=== PATIENT | female | born 1945 | race African-American/Black ===

== ENCOUNTER 2021-05-14 12:23 | Outpatient (RCR) | payer MEDICARE, SELFPAY | END 2021-05-18 14:46 | disposition home or self-care (01) | LOC: HO.WCC 12:23 | PROVIDERS: PCP Internal Medicine; Visit Provider Physician Assistant | DX: E11.621 Type 2 diabetes mellitus with foot ulcer (principal); E11.51 Type 2 diabetes mellitus with diabetic peripheral angiopathy without gangrene; I70.235 Atherosclerosis of native arteries of right leg with ulceration of other part of foot; L97.516 Non-pressure chronic ulcer of other part of right foot with bone involvement without evidence of necrosis; E11.22 Type 2 diabetes mellitus with diabetic chronic kidney disease; N18.30 Chronic kidney disease, stage 3 unspecified; Z79.4 Long term (current) use of insulin; Z86.73 Personal history of transient ischemic attack (TIA), and cerebral infarction without residual deficits | CPT/HCPCS: 99213 ==

== ENCOUNTER 2021-05-14 13:30 | Inpatient (IN) | payer MEDICARE, MEDICAID, SELFPAY ==
--- NOTE | ~2021-05-14 | XR_ITS ---
EXAMINATION: XR FOOT, RIGHT CLINICAL INFORMATION: Timoteo hepatitis wound right great toe. Question bony erosion. COMPARISON: None TECHNIQUE: AP, lateral, and oblique views of the right foot. FINDINGS: There is subtle lucency seen along the lateral cortex proximal phalanx great toe with erosion of the cortex suggestive of osteoarthritis. There is associated soft tissue swelling but no gas visualized. There is no fracture or dislocation. XR/XR foot RT 2V IMPRESSION: Erosive changes along the lateral cortex proximal phalanx distal segment first digit suspicious for osteomyelitis. There is associated soft tissue ulcer. There is no acute fracture.
--- NOTE | ~2021-05-14 | US_ITS ---
EXAMINATION: ULTRASOUND ARTERIAL DUPLEX LOWER EXTREMITY BILATERAL, BERNARDO CLINICAL INFORMATION: Nonhealing ulcer. COMPARISON: None TECHNIQUE: Multiple 2D grayscale and duplex Doppler ultrasound images of the arterial system of the bilateral lower extremities were obtained. Ankle brachial indices were also obtained. FINDINGS: Duplex Doppler interrogation of the bilateral lower extremities showed normal tri and biphasic arterial waveforms. Arterial peak systolic velocities are as follows: Left: Common femoral: 79 cm/sec Profunda femoral: 96 cm/sec Superficial femoral proximal: 26 cm/sec Superficial femoral mid: No detectable arterial waveforms. Superficial femoral distal: No detectable arterial waveforms. Popliteal: No detectable arterial waveforms. Posterior tibial (prox/mid/distal): No detectable arterial waveforms. Right: Common femoral: 55 cm/sec Profunda femoral: 31 cm/sec Superficial femoral proximal: 140 cm/sec Superficial femoral mid: 45 cm/sec. Superficial femoral distal: 40 cm/sec Popliteal: 70 cm/sec. Posterior tibial (prox/mid/distal): Not visualized. Scattered mild to moderate atherosclerosis is seen bilaterally. The right ankle brachial index is not dilated 0.14 and the left was calculated as 0.35. US/US arterial duplex LE BI IMPRESSION: 1. No detectable blood or waveforms from the level of the right mid superficial arterial segment distally to the right calf suggesting high-grade stenosis in these arterial segments. Collaterals were visualized. Correlation with physical exam is recommended. This could be confirmed with CT angiography. 2. Diminished arterial velocities in the left lower extremity except in the proximal superficial femoral segment. No detectable blood or waveforms are seen in the region of the left posterior tibial artery. High-grade stenosis in the cervical segment cannot be excluded. This can also be confirmed with CT angiography. 2. Ankle-brachial indices are in the range of severe stenosis, right greater than left.
--- NOTE | ~2021-05-14 | US_ITS ---
EXAMINATION: ULTRASOUND ARTERIAL DUPLEX LOWER EXTREMITY BILATERAL, BERNARDO CLINICAL INFORMATION: Nonhealing ulcer. COMPARISON: None TECHNIQUE: Multiple 2D grayscale and duplex Doppler ultrasound images of the arterial system of the bilateral lower extremities were obtained. Ankle brachial indices were also obtained. FINDINGS: Duplex Doppler interrogation of the bilateral lower extremities showed normal tri and biphasic arterial waveforms. Arterial peak systolic velocities are as follows: Left: Common femoral: 79 cm/sec Profunda femoral: 96 cm/sec Superficial femoral proximal: 26 cm/sec Superficial femoral mid: No detectable arterial waveforms. Superficial femoral distal: No detectable arterial waveforms. Popliteal: No detectable arterial waveforms. Posterior tibial (prox/mid/distal): No detectable arterial waveforms. Right: Common femoral: 55 cm/sec Profunda femoral: 31 cm/sec Superficial femoral proximal: 140 cm/sec Superficial femoral mid: 45 cm/sec. Superficial femoral distal: 40 cm/sec Popliteal: 70 cm/sec. Posterior tibial (prox/mid/distal): Not visualized. Scattered mild to moderate atherosclerosis is seen bilaterally. The right ankle brachial index is not dilated 0.14 and the left was calculated as 0.35. US/US BERNARDO complete IMPRESSION: 1. No detectable blood or waveforms from the level of the right mid superficial arterial segment distally to the right calf suggesting high-grade stenosis in these arterial segments. Collaterals were visualized. Correlation with physical exam is recommended. This could be confirmed with CT angiography. 2. Diminished arterial velocities in the left lower extremity except in the proximal superficial femoral segment. No detectable blood or waveforms are seen in the region of the left posterior tibial artery. High-grade stenosis in the cervical segment cannot be excluded. This can also be confirmed with CT angiography. 2. Ankle-brachial indices are in the range of severe stenosis, right greater than left.
[2021-05-14 13:45] VITALS: BP 141/65; PULSE 62; O2SAT 100
[2021-05-14 13:47] VITALS: BP 136/60; PULSE 65; RESP 17; TEMP 36.6; O2SAT 100; BMI 27.4
--- NOTE | 2021-05-14 13:47 | ED_ITS ---
HPI - Extremity Problem General Chief complaint: Wound/Laceration Stated complaint: necrotic great toe Time Seen by Provider: 05/14/21 13:44 Source: patient and EMS Mode of arrival: EMS Limitations: no limitations History of Present Illness HPI Narrative: Patient history of dementia peripheral vascular disease diabetes came from the wound clinic as patient has nonhealing wound on the right greater toe with dry gangrene and open wound in the web of 1st and 2nd toe with foul- smelling discharge details are not available patient been on Augmentin and doxycycline since 04/22 patient is nonambulatory in contracted posture, patient is status post femoral artery stent patient is DNR DNI Related Data Home Medications Medication Instructions Recorded Confirmed acetaminophen 325 mg tablet 650 mg PO Q6H PRN 05/14/21 05/14/21 aspirin 81 mg tablet,delayed 81 mg PO DAILY 05/14/21 05/14/21 release bisacodyl 10 mg rectal suppository 10 mg DC DAILY PRN 05/14/21 05/14/21 bisacodyl 5 mg tablet 10 mg PO DAILY PRN 05/14/21 05/14/21 calcium carbonate 500 mg calcium 1,000 mg PO QID PRN 05/14/21 05/14/21 (1,250 mg) chewable tablet dorzolamide 22.3 mg-timolol 6.8 1 drp OPHTHALMIC (EYE) BID 05/14/21 05/14/21 mg/mL eye drops insulin detemir U-100 100 unit/mL 14 unit SUBCUT DAILY 05/14/21 05/14/21 (3 mL) subcutaneous pen (Levemir FlexTouch U-100 Insulin) latanoprost 0.005 % eye drops 1 drp OPHTHALMIC (EYE) DAILY 05/14/21 05/14/21 magnesium hydroxide 400 mg/5 mL 30 ml PO BEDTIME PRN 05/14/21 05/14/21 oral suspension (Milk of Magnesia) metoprolol tartrate 50 mg tablet 50 mg PO BID 05/14/21 05/14/21 mirtazapine 15 mg tablet 15 mg PO BEDTIME 05/14/21 05/14/21 omeprazole 20 mg capsule,delayed 20 mg PO DAILY@0630 05/14/21 05/14/21 release ondansetron 4 mg disintegrating 4 mg PO Q6H PRN 05/14/21 05/14/21 tablet peg 400-propylene glycol 0.4 %-0.3 1 drp OPHTHALMIC (EYE) BID 05/14/21 05/14/21 % eye drops (Systane Ultra) sennosides 8.6 mg tablet (senna) 8.6 mg PO DAILY 05/14/21 05/14/21 sennosides 8.6 mg tablet (senna) 17.2 mg PO BEDTIME PRN 05/14/21 05/14/21 tamsulosin 0.4 mg capsule 0.4 mg PO BEDTIME 05/14/21 05/14/21 Allergies Allergy/AdvReac Type Severity Reaction Status Date / Time oxycodone [From PERCOCET] Allergy Mild HALLUCINATI Unverified 04/30/20 15:09 ONS Review of Systems Review of Systems: Yes all other systems are reviewed and are negative [facility] Past Medical History Medical History CVA (cerebral vascular accident) Diabetes Femoral artery occlusion Glaucoma HLD (hyperlipidemia) HTN (hypertension) Superficial femoral artery occlusion Vascular dementia Family History Family History Mother CVA (cerebral vascular accident) Social History Social History Alcohol intake: never Patient Tobacco Use Status: Never used Tobacco Advance Directives: No Advance Directives Information Provided: No Physical Exam Vital Signs: Vital Signs: Last Vital Signs Temp 98 F 05/14/21 13:47 Pulse 65 05/14/21 13:47 Resp 17 05/14/21 13:47 BP 136/60 05/14/21 13:47 Pulse Ox 100 05/14/21 13:47 Body Mass Index 27.4 Const: General: cooperative, no acute distress and ill appearing Nutritional Appearance: thin and underweight Orientation/consciousness: orie nted to person and oriented to place HENMT: Head: Yes normal to inspection and Yes normocephalic Ears: hearing grossly normal bilaterally Eyes: General: appearance normal, both eyes and all related structures Resp: Effort & Inspection: normal respiratory effort Auscultation: clear to auscultation bilaterally Cardio: Palpation: normal PMI Rate: regular rate Rhythm: regular rhythm Heart sounds: S1 normal heart sound present and S2 normal heart sound present Peripheral pulses: popliteal pulses present, posterior tibial pulses not present (Right leg) and dorsalis pedis pulses not present (Right leg) GI: Inspection: Yes normal to inspection Palpation (GI): Soft to palpation and nontender Neuro: Other: Residual left hemiparesis with contractures posture General: oriented to person and oriented to place Extrem: Other: MDM - Extremity (Nontraumatic) MDM Narrative Medical decision making narrative: Patient diabetic with peripheral vascular disease with chronic right leg ischemia with nonhealing wound in the right greater toe with dry gangrene and open wound with bony erosion in the x-ray suggestive of osteomyelitis will admit for IV antibiotic plan for metatarsal amputation. Hospitalist aware discussed the case with Dr. Verduzco Lab Data Result diagrams: 05/14/21 14:43 05/14/21 14:43 Labs: Lab Results 05/14/21 05/14/21 05/14/21 Range/Units 14:43 14:43 14:43 WBC 9.2 (4.8-10.8) X10*3/uL RBC 3.16 L (4.20-5.50) X10*6/uL Hgb 8.6 L (12.0-16.0) g/dl Hct 28.6 L (37-47) % MCV 90.5 (80-98) fL MCH 27.2 (27.0-33.0) pg MCHC 30.1 L (31.0-35.0) g/dl RDW 13.1 (11.0-16.0) % Plt Count 276 (160-400) X10*3/uL MPV 8.8 L (9.4-12.3) fL Immature Gran % (Auto) 0.4 (0.0-0.4) % Neut % (Auto) 64.7 (45-73) % Lymph % (Auto) 26.3 (20-40) % [place] % (Auto) 6.9 (2-11) % Eos % (Auto) 1.2 (0-4) % Baso % (Auto) 0.5 (0-2) % Lymph # (Auto) 2.4 (1.2-4.9) X10*3/uL [place] # (Auto) 0.6 (0.1-1.2) X10*3/uL Eos # (Auto) 0.1 (0.0-0.4) X10*3/uL Baso # (Auto) 0.1 (0.0-0.2) X10*3/uL Abs Immat Gran (auto) 0.04 H (0.00-0.03) X10*3/uL Absolute Neuts (auto) 5.9 (2.0-8.3) X10*3/uL Absolute Nucleated RBC 0.000 (0.0-0.012) X10*3/uL Nucleated RBC % (auto) 0.0 (0.0-0.2) /100WBC PT (9.9-13.0) SEC INR (0.9-1.1) APTT (24.1-38.0) SEC Sodium 139 (135-145) mmol/L Potassium 4.2 (3.3-5.1) mmol/L Chloride 104 (96-108) mmol/L Carbon Dioxide 28 (22-29) mmol/L Anion Gap 11 L (12-20) BUN 31 H (9-16) mg/dL Creatinine 0.79 (0.5-1.4) mg/dL Estim Creat Clear Calc 60.4 Estimated GFR > 60 Random Glucose 115 (60-115) mg/dL Lactic Acid 0.9 (0.5-2.0) mmol/L Calcium 9.2 (8.4-10.2) mg/dL COVID-19 ([facility]) (Negative) COVID-19 Clin Com 05/14/21 05/14/21 Range/Units 14:43 15:33 WBC (4.8-10.8) X10*3/uL RBC (4.20-5.50) X10*6/uL Hgb (12.0-16.0) g/dl Hct (37-47) % MCV (80-98) fL MCH (27.0-33.0) pg MCHC (31.0-35.0) g/dl RDW (11.0-16.0) % Plt Count (160-400) X10*3/uL MPV (9.4-12.3) fL Immature Gran % (Auto) (0.0-0.4) % Neut % (Auto) (45-73) % Lymph % (Auto) (20-40) % [place] % (Auto) (2-11) % Eos % (Auto) (0-4) % Baso % (Auto) (0-2) % Lymph # (Auto) (1.2-4.9) X10*3/uL [place] # (Auto) (0.1-1.2) X10*3/uL Eos # (Auto) (0.0-0.4) X10*3/uL Baso # (Auto) (0.0-0.2) X10*3/uL Abs Immat Gran (auto) (0.00-0.03) X10*3/uL Absolute Neuts (auto) (2.0-8.3) X10*3/uL Absolute Nucleated RBC (0.0-0.012) X10*3/uL Nucleated RBC % (auto) (0.0-0.2) /100WBC PT 13.8 H (9.9-13.0) SEC INR 1.2 H (0.9-1.1) APTT 34.0 (24.1-38.0) SEC Sodium (135-145) mmol/L Potassium (3.3-5.1) mmol/L Chloride (96-108) mmol/L Carbon Dioxide (22-29) mmol/L Anion Gap (12-20) BUN (9-16) mg/dL Creatinine (0.5-1.4) mg/dL Estim Creat Clear Calc Estimated GFR Random Glucose (60-115) mg/dL Lactic Acid (0.5-2.0) mmol/L Calcium (8.4-10.2) mg/dL COVID-19 ([facility]) Negative (Negative) COVID-19 Clin Com See Note Discharge Plan Discharge Clinical Impression: Acute osteomyelitis of phalanx of right foot Patient Disposition: Admitted As Inpatient
[2021-05-14 14:50] LABS: MANUAL DIFF FLAG NO
[2021-05-14 14:55] LABS: Basophils Absolute Auto 0.1 X10*3/uL (0.0-0.2); Basophils Percent Auto 0.5 % (0-2); Eosinophils Absolute Auto 0.1 X10*3/uL (0.0-0.4); Eosinophils Percent Auto 1.2 % (0-4); Hematocrit 28.6 % (37-47); Hemoglobin 8.6 g/dl (12.0-16.0); Imm Gran Abs Auto 0.04 X10*3/uL (0.00-0.03); Imm Gran Pct Auto 0.4 % (0.0-0.4); Lymphocytes Absolute Auto 2.4 X10*3/uL (1.2-4.9); Lymphocytes Percent Auto 26.3 % (20-40); Mean Corpuscular HGB Conc 30.1 g/dl (31.0-35.0); Mean Corpuscular Hemoglobin 27.2 pg (27.0-33.0); Mean Corpuscular Volume 90.5 fL (80-98); Mean Platelet Volume 8.8 fL (9.4-12.3); Monocytes Absolute Auto 0.6 X10*3/uL (0.1-1.2); Monocytes Percent Auto 6.9 % (2-11); Neutrophils Absolute Auto 5.9 X10*3/uL (2.0-8.3); Neutrophils Percent Auto 64.7 % (45-73); Platelet Count 276 X10*3/uL (160-400); Red Blood Count 3.16 X10*6/uL (4.20-5.50); Red Cell Distribution Width 13.1 % (11.0-16.0); White Blood Count 9.2 X10*3/uL (4.8-10.8)
[2021-05-14 14:59] LABS: INTERNATIONAL NORM RATIO 1.2 (0.9-1.1); Prothrombin Time 13.8 SEC (9.9-13.0)
[2021-05-14] MEDS: Piperacillin Sodium/Tazobactam 3.375 GM in 0.9 % Sodium Chloride 50 ML IV ×2 (15:02→20:28)
[2021-05-14 15:03] LABS: Lactic Acid 0.9 mmol/L (0.5-2.0)
[2021-05-14 15:14] LABS: Anion Gap 11 (12-20); Blood Urea Nitrogen 31 mg/dL (9-16); Calcium 9.2 mg/dL (8.4-10.2); Carbon Dioxide 28 mmol/L (22-29); Chloride 104 mmol/L (96-108); Creatinine Clr Calc Pharmacy 60.4; Estimated Glomerular Filt Rate > 60; Glucose Random 115 mg/dL (60-115); Potassium 4.2 mmol/L (3.3-5.1); Sodium 139 mmol/L (135-145)
[2021-05-14] MEDS: vancomycin HCL 750 MG in 0.9 % Sodium Chloride 250 ML 265 MG IV (15:46)
[2021-05-14 15:54] LABS: COVID-19 Test Negative (Negative)
--- NOTE | 2021-05-14 16:07 | P.HPHOSP_ITS ---
History of Present Illness Date of Service: 05/14/21 Chief Complaint: infected right 1st toe 75F sent from intermediate to wound clinic and then to ED for right first toe infection. Patient has her healthcare proxy invoked due to vascular dementia. She has a history of significant CVA with left severe hemiparesis and multiple other TIAs, peripheral vascular disease with stent placement, diabetes, hypertension. Healthcare proxy was unclear duration of symptoms, but appears to be having on on for some time and was prescribed Augmentin doxycycline at intermediate which does not appear to have improved. Wound clinic found toe to be necrotic and sent patient to the ED. patient herself connective proper his tory denies any pain, shortness of breath, fever, chills. Patient has no signs of sepsis. X-rays suspicious for early osteomyelitis. Review of Systems Review of Systems: Yes Unobtainable due to mental condition [facility] Medical History (Updated 05/14/21 @ 16:13 by Alex Campbell MD) CVA (cerebral vascular accident) Diabetes Femoral artery occlusion Glaucoma HLD (hyperlipidemia) HTN (hypertension) Superficial femoral artery occlusion Vascular dementia Family History (Updated 05/14/21 @ 16:00 by Alex Campbell MD) Mother CVA (cerebral vascular accident) Pertinent family history: see above Social History Alcohol intake: never Patient Tobacco Use Status: Never used Tobacco Advance Directives: No Advance Directives Information Provided: No Meds Allergies Allergy/AdvReac Type Severity Reaction Status Date / Time oxycodone [From PERCOCET] Allergy Mild HALLUCINATI Unverified 04/30/20 15:09 ONS Active Medications: Current Medications Heparin Sodium/Sodium Chloride () 25,000 unit in 250 mls @ 0 mls/hr IVCONT .Q0M DILLON; Protocol Pharmacy Consult (Consult Rx Perform Med Rec) 1 each MISCELLANE ONCE PRN PRN Reason: Consult order Home Medications Medication Instructions Recorded Confirmed Last Taken Type acetaminophen 325 mg tablet 650 mg PO Q6H PRN 05/14/21 05/14/21 Unknown History aspirin 81 mg tablet,delayed 81 mg PO DAILY 05/14/21 05/14/21 Unknown History release bisacodyl 10 mg rectal suppository 10 mg NE DAILY PRN 05/14/21 05/14/21 Unknown History bisacodyl 5 mg tablet 10 mg PO DAILY PRN 05/14/21 05/14/21 Unknown History calcium carbonate 500 mg calcium 1,000 mg PO QID PRN 05/14/21 05/14/21 Unknown History (1,250 mg) chewable tablet dorzolamide 22.3 mg-timolol 6.8 1 drp OPHTHALMIC (EYE) BID 05/14/21 05/14/21 Unknown History mg/mL eye drops insulin detemir U-100 100 unit/mL 14 unit SUBCUT DAILY 05/14/21 05/14/21 Unknown History (3 mL) subcutaneous pen (Levemir FlexTouch U-100 Insulin) latanoprost 0.005 % eye drops 1 drp OPHTHALMIC (EYE) DAILY 05/14/21 05/14/21 Unknown History magnesium hydroxide 400 mg/5 mL 30 ml PO BEDTIME PRN 05/14/21 05/14/21 Unknown History oral suspension (Milk of Magnesia) metoprolol tartrate 50 mg tablet 50 mg PO BID 05/14/21 05/14/21 Unknown History mirtazapine 15 mg tablet 15 mg PO BEDTIME 05/14/21 05/14/21 Unknown History omeprazole 20 mg capsule,delayed 20 mg PO DAILY@0630 05/14/21 05/14/21 Unknown History release ondansetron 4 mg disintegrating 4 mg PO Q6H PRN 05/14/21 05/14/21 Unknown Hist ory tablet peg 400-propylene glycol 0.4 %-0.3 1 drp OPHTHALMIC (EYE) BID 05/14/21 05/14/21 Unknown History % eye drops (Systane Ultra) sennosides 8.6 mg tablet (senna) 8.6 mg PO DAILY 05/14/21 05/14/21 Unknown History sennosides 8.6 mg tablet (senna) 17.2 mg PO BEDTIME PRN 05/14/21 05/14/21 Unknown History tamsulosin 0.4 mg capsule 0.4 mg PO BEDTIME 05/14/21 05/14/21 Unknown History Physical Exam Vital Signs and Narrative: Vital Signs: Last Vital Signs Temp 98 F 05/14/21 13:47 Pulse 65 05/14/21 13:47 Resp 17 05/14/21 13:47 BP 136/60 05/14/21 13:47 Pulse Ox 100 10/01/21 13:47 Body Mass Index 27.4 General: no acute distress, frail HEENT: atraumatic Neck: normal to visual inspection CVS: S1, S2, RRR Resp: CTA bilateral Chest: non tender GI: soft, non tender, non distended : no CVA tenderness Skin: right first toe necrotic (see pics) Extremities: no edema Neuro: Oriented X1, left hemiparesis, contracted Psych: cooperative, impaired insight Results Labs CBC and Chem 7: 05/14/21 14:43 05/14/21 14:43 Labs: Laboratory Results - last 24 hr 05/14/21 05/14/21 05/14/21 14:43 14:43 14:43 MCV 90.5 MCH 27.2 MCHC 30.1 L RDW 13.1 Plt Count 276 MPV 8.8 L Immature Gran % (Auto) 0.4 Neut % (Auto) 64.7 Lymph % (Auto) 26.3 [place] % (Auto) 6.9 Eos % (Auto) 1.2 Baso % (Auto) 0.5 Lymph # (Auto) 2.4 [place] # (Auto) 0.6 Eos # (Auto) 0.1 Baso # (Auto) 0.1 Abs Immat Gran (auto) 0.04 H Absolute Neuts (auto) 5.9 Absolute Nucleated RBC 0.000 Nucleated RBC % (auto) 0.0 PT INR APTT Anion Gap 11 L Estim Creat Clear Calc 60.4 Estimated GFR > 60 Random Glucose 115 Lactic Acid 0.9 Calcium 9.2 COVID-19 ([facility]) COVID-19 Clin Com 05/14/21 05/14/21 14:43 15:33 MCV MCH MCHC RDW Plt Count MPV Immature Gran % (Auto) Neut % (Auto) Lymph % (Auto) [place] % (Auto) Eos % (Auto) Baso % (Auto) Lymph # (Auto) [place] # (Auto) Eos # (Auto) Baso # (Auto) Abs Immat Gran (auto) Absolute Neuts (auto) Absolute Nucleated RBC Nucleated RBC % (auto) PT 13.8 H INR 1.2 H APTT 34.0 Anion Gap Estim Creat Clear Calc Estimated GFR Random Glucose Lactic Acid Calcium COVID-19 ([facility]) Negative COVID-19 Clin Com See Note Imaging Radiologist's Impressions: Impressions Foot X-Ray 05/14/21 13:47 IMPRESSION: Erosive changes along the lateral cortex proximal phalanx distal segment first digit suspicious for osteomyelitis. There is associated soft tissue ulcer. There is no acute fracture. Assessment and Plan (1) Vascular dementia: Status: Acute (2) Acute osteomyelitis of phalanx of right foot: Status: Acute (3) Diabetes: Status: Acute 75F presented with necrotic looking right 1st toe right first toe necrosis with OM due to PVD, DM discussed with vascular high risk to progress to sepsis will cover with IV antibiotics - vanc, zosyn follow up blood cultures check arterial vascular studies local care - wound paint/betadine kerlex daily likely to need amputation discussed with HCP, son, he is okay with hospitalization and potential surgery, would like patient to remain DNR/DNI DM insulin sliding scale, monitor POC history of CVA with severe left hemiparesis and vascular dementia asa, statin dvt prohpylaxis - lovenox DNR/DNI Quality Stroke Does the patient have a stroke diagnosis?: No VTE Prior VTE?: No VTE Risk Level:: Medical - moderate - high VTE Device Contraindication: Treatment Not Indicated VTE Drug Contraindication: N/A - Med Ordered
--- NOTE | 2021-05-14 16:24 | PHA.MEDREC ---
Pharmacy Consult ? Medication Reconciliation Pharmacy has completed the medication reconciliation. pt from facility
[2021-05-14 17:56] VITALS: BP 98/66; PULSE 74; RESP 18; TEMP 36.6; O2SAT 97
[2021-05-14] MEDS: Enoxaparin Sodium 40 MG/0.4 ML SYRINGE SUBCUT (18:04)
[2021-05-14 20:00] VITALS: BP 131/90; PULSE 78; RESP 16; TEMP 36.6; O2SAT 98
[2021-05-14] MEDS: Tamsulosin HCL 0.4 MG CAPSULE PO (20:27)
[2021-05-14] MEDS: Atorvastatin Calcium 40 MG TABLET PO (20:27)
[2021-05-14] MEDS: 0.9 % Sodium Chloride Flush 3 ML SYRINGE IVFLUSH (20:27)
[2021-05-14] MEDS: Metoprolol Tartrate 50 MG TABLET PO (20:27)
[2021-05-14 20:28] LABS: Glucose, Whole Blood 92 mg/dL (60-115)
[2021-05-14] MEDS: Dorzolamide/Timolo 2.23%/0.68% 10 ML DRBTL 1 DROP EYE-BOTH (21:10)
[2021-05-14] MEDS: Artificial Tears 15 ML DROPS 1 DROP EYE-BOTH (21:10)
[2021-05-15] VITALS: BP 112/68; PULSE 61; RESP 16; TEMP 36.1; O2SAT 99
[2021-05-15] MEDS: Piperacillin Sodium/Tazobactam 3.375 GM in 0.9 % Sodium Chloride 50 ML IV ×4 (03:01→21:04)
[2021-05-15] MEDS: Omeprazole 20 MG CAPSULE.DR PO (05:58)
[2021-05-15 06:07] LABS: Hematocrit 26.7 % (37-47); Hemoglobin 8.2 g/dl (12.0-16.0); Mean Corpuscular HGB Conc 30.7 g/dl (31.0-35.0); Mean Corpuscular Hemoglobin 27.7 pg (27.0-33.0); Mean Corpuscular Volume 90.2 fL (80-98); Mean Platelet Volume 9.1 fL (9.4-12.3); Platelet Count 291 X10*3/uL (160-400); Red Blood Count 2.96 X10*6/uL (4.20-5.50); Red Cell Distribution Width 13.2 % (11.0-16.0); White Blood Count 8.1 X10*3/uL (4.8-10.8)
[2021-05-15 06:43] LABS: Anion Gap 15 (12-20); Blood Urea Nitrogen 38 mg/dL (9-16); Calcium 8.7 mg/dL (8.4-10.2); Carbon Dioxide 24 mmol/L (22-29); Chloride 104 mmol/L (96-108); Creatinine Clr Calc Pharmacy 49.6; Estimated Glomerular Filt Rate 56; Glucose Fasting 46 mg/dL (60-99); Potassium 3.7 mmol/L (3.3-5.1); Sodium 139 mmol/L (135-145)
[2021-05-15 06:54] LABS: Glucose, Whole Blood 50 mg/dL (60-115)
[2021-05-15 07:36] VITALS: BP 126/62; PULSE 62; RESP 16; TEMP 36.4
[2021-05-15 07:51] LABS: Glucose, Whole Blood 80 mg/dL (60-115)
[2021-05-15 08:02] VITALS: BP 126/62; PULSE 62
[2021-05-15] MEDS: Aspirin Enteric Coated 81 MG TABLET.DR PO (08:02)
[2021-05-15] MEDS: Sennosides 8.6 MG TABLET PO (08:02)
[2021-05-15] MEDS: Metoprolol Tartrate 50 MG TABLET PO ×2 (08:02→21:05)
[2021-05-15] MEDS: 0.9 % Sodium Chloride Flush 3 ML SYRINGE IVFLUSH ×2 (08:03→15:51)
[2021-05-15] MEDS: Dextrose 5 % and 0.45 % NaCl 1,000 ML 50 ML IVCONT (08:03)
[2021-05-15] MEDS: Artificial Tears 15 ML DROPS 1 DROP EYE-BOTH ×2 (08:17→21:13)
[2021-05-15] MEDS: Latanoprost 0.005 % Ophth Sol 2.5 ML DROPS 1 DROP EYE-BOTH (08:17)
[2021-05-15] MEDS: Dorzolamide/Timolo 2.23%/0.68% 10 ML DRBTL 1 DROP EYE-BOTH ×2 (08:18→21:14)
--- NOTE | 2021-05-15 08:21 | HO.PM.IMPN ---
Subjective Subjective Date of Service: 05/15/21 Interval History: cc: sent in for necrotic toe wound patient denies pain Cardiovascular Cardiovascular: Reports no additional cardiovascular complaints Respiratory Respiratory: Reports no additional respiratory complaints Physical Exam Vital Signs: Vital Signs: Last Vital Signs Temp 97.5 F 05/15/21 07:36 Pulse 62 05/15/21 08:02 Resp 16 05/15/21 07:36 BP 126/62 05/15/21 08:02 Pulse Ox 99 05/15/21 00:00 Body Mass Index 27.4 General: AO X 1, no acute distress, frail appearing, contracted Resp: CTA bilateral, no accessory muscles used CVS: S1,S2,RRR GI: soft, non tender, non distended Neuro: left hemiplegia (son reports some movement occasionally on left, but cannot appreciate any on exam), contracted skin: rle - first toe necrotic wound Objective Data Active Medications Acetaminophen (Acetaminophen 325 Mg Tablet) 650 mg PO Q6H PRN PRN Reason: fever/pain Artificial Tears (Artificial Tears 15 Ml Drops) 1 drop EYE-BOTH BID [facility] Last Admin: 05/14/21 21:10 Dose: 1 drop Documented by: VI Aspirin (Aspirin Enteric Coated 81 Mg Tablet.) 81 mg PO DAILY [facility] Last Admin: 05/15/21 08:02 Dose: 81 mg Documented by: JUNE Atorvastatin Calcium (Atorvastatin Calcium 40 Mg Tablet) 40 mg PO BEDTIME [facility] Last Admin: 05/14/21 20:27 Dose: 40 mg Documented by: VI Bisacodyl (Bisacodyl 5 Mg Tablet.) 10 mg PO DAILY PRN PRN Reason: Constipation Bisacodyl (Bisacodyl 10 Mg Supp.Rect) 10 mg [place] DAILY PRN PRN Reason: Constipation Calcium Carbonate (Calcium Carbonate 750 Mg Tab.Chew) 750 mg PO QID PRN PRN Reason: Heartburn Dextrose (Dextrose 50 % 25 Gm/50 Ml Vial) 25 gm IVPUSH Q15M PRN; Protocol PRN Reason: per Hypoglycemia Standing Ord. Dorzolamide/Timolol (Dorzolamide/Timolo 2.23%/0.68% 10 Ml Drbtl) 1 drop EYE-BOTH BID [facility] Last Admin: 05/14/21 21:10 Dose: 1 drop Documented by: VI Enoxaparin Sodium (Enoxaparin Sodium 40 Mg/0.4 Ml Syringe) 40 mg SUBCUT Q24H [facility] Last Admin: 05/14/21 18:04 Dose: 40 mg Documented by: MARKO Glucose (Glucose Gel 15 Gm Gel..Gram.) 15 gm PO Q15M PRN; Protocol PRN Reason: per Hypoglycemia Standing Ord. Piperacillin Sod/Tazobactam (Sod 3.375 gm/ Sodium Chloride) 50 mls @ 100 mls/hr IV Q6H [facility] Last Infusion: 05/15/21 03:35 Dose: 0 mls/hr Documented by: VI Vancomycin HCl 1,250 mg/ (Sodium Chloride) 250 mls @ 166.667 mls/hr IV Q24H [facility] Dextrose/Sodium Chloride (D51/2ns) 1,000 mls @ 50 mls/hr IVCONT .Q20H [facility] Last Admin: 05/15/21 08:03 Dose: 50 mls/hr Documented by: JUNE Insulin Human Lispro (Insulin Lispro 100 Unit/Ml 3 Ml Vial) 0 unit SUBCUT QIDACHS [facility]; Protocol Last Admin: 05/15/21 07:57 Dose: Not Given Documented by: JUNE Non-Admin Reason: No Insulin Coverage Latanoprost (Latanoprost 0.005 % Ophth Susie 2.5 Ml Drops) 1 drop EYE-BOTH DAILY [facility] Magnesium Hydroxide (Milk Of Magnesia 30 Ml Oral.Susp) 30 ml PO BEDTIME PRN PRN Reason: Constipation Metoprolol Tartrate (Metoprolol Tartrate 50 Mg Tablet) 50 mg PO BID [facility]; Protocol Last Admin: 05/15/21 08:02 Dose: 50 mg Documented by: JUNE Mirtazapine (Mirtazapine 15 Mg Tablet) 15 mg PO BEDTIME [facility] Last Admin: 05/14/21 20:33 Dose: Not Given Documented by: VI Non-Admin Reason: Patient Refused Omeprazole (Omeprazole 20 Mg Capsule.) 20 mg PO DAILY@0630 [facility] Last Admin: 05/15/21 05:58 Dose: 20 mg Documented by: VI Ondansetron HCl (Ondansetron Odt 4 Mg Tab.Rapdis) 4 mg TRANSLINGU Q6H PRN PRN Reason: Nausea And Vomiting Pharmacy Consult (Consult Rx Perform Med Rec) 1 each MISCELLANE ONCE PRN PRN Reason: Consult order Pharmacy Consult (Consult Rx Vancomycin Dosing) 1 each MISCELLANE DAILY PRN PRN Reason: Consult order Senna (Sennosides 8.6 Mg Tablet) 8.6 mg PO DAILY [facility] Last Admin: 05/15/21 08:02 Dose: 8.6 mg Documented by: JUNE Senna (Sennosides 8.6 Mg Tablet) 17.2 mg PO BEDTIME PRN PRN Reason: Constipation Sodium Chloride (0.9 % Sodium Chloride Flush 3 Ml Syringe) 3 ml IVFLUSH QSHIFT [facility] Last Admin: 05/15/21 08:03 Dose: 3 ml Documented by: JUNE Tamsulosin HCl (Tamsulosin Hcl 0.4 Mg Capsule) 0.4 mg PO BEDTIME [facility] Last Admin: 05/14/21 20:27 Dose: 0.4 mg Documented by: VI Labs CBC & Chem 7: 05/15/21 05:14 05/15/21 05:14 Labs: Laboratory Results - last 24 hr 05/14/21 05/14/21 05/14/21 14:43 14:43 14:43 MCV 90.5 MCH 27.2 MCHC 30.1 L RDW 13.1 Plt Count 276 MPV 8.8 L Immature Gran % (Auto) 0.4 Neut % (Auto) 64.7 Lymph % (Auto) 26.3 [place] % (Auto) 6.9 Eos % (Auto) 1.2 Baso % (Auto) 0.5 Lymph # (Auto) 2.4 [place] # (Auto) 0.6 Eos # (Auto) 0.1 Baso # (Auto) 0.1 Abs Immat Gran (auto) 0.04 H Absolute Neuts (auto) 5.9 Absolute Nucleated RBC 0.000 Nucleated RBC % (auto) 0.0 PT INR APTT Anion Gap 11 L Estim Creat Clear Calc 60.4 Estimated GFR > 60 POC Glucose Random Glucose 115 Fasting Glucose Lactic Acid 0.9 Calcium 9.2 COVID-19 ([facility]) COVID-19 Clin Com 05/14/21 05/14/21 05/14/21 14:43 15:33 20:24 MCV MCH MCHC RDW Plt Count MPV Immature Gran % (Auto) Neut % (Auto) Lymph % (Auto) Zapata % (Auto) Eos % (Auto) Baso % (Auto) Lymph # (Auto) Z[place]ata # (Auto) Eos # (Auto) Baso # (Auto) Abs Immat Gran (auto) Absolute Neuts (auto) Absolute Nucleated RBC Nucleated RBC % (auto) PT 13.8 H INR 1.2 H APTT 34.0 Anion Gap Estim Creat Clear Calc Estimated GFR POC Glucose 92 Random Glucose Fasting Glucose Lactic Acid Calcium COVID-19 ([facility]EE) Negative COVID-19 Clin Com See Note 05/15/21 05/15/21 05/15/21 05:14 05:14 06:50 MCV 90.2 MCH 27.7 MCHC 30.7 L RDW 13.2 Plt Count 291 MPV 9.1 L Immature Gran % (Auto) Neut % (Auto) Lymph % (Auto) Z[place] % (Auto) Eos % (Auto) Baso % (Auto) Lymph # (Auto) [place]ata # (Auto) Eos # (Auto) Baso # (Auto) Abs Immat Gran (auto) Absolute Neuts (auto) Absolute Nucleated RBC 0.000 Nucleated RBC % (auto) 0.0 PT INR APTT Anion Gap 15 Estim Creat Clear Calc 49.6 Estimated GFR 56 POC Glucose 50 L* Random Glucose Fasting Glucose 46 L* Lactic Acid Calcium 8.7 COVID-19 ([facility]EE) COVID-19 Clin Com 05/15/21 07:42 MCV MCH MCHC RDW Plt Count MPV Immature Gran % (Auto) Neut % (Auto) Lymph % (Auto) Z[place]ata % (Auto) Eos % (Auto) Baso % (Auto) Lymph # (Auto) Z[place]ata # (Auto) Eos # (Auto) Baso # (Auto) Abs Immat Gran (auto) Absolute Neuts (auto) Absolute Nucleated RBC Nucleated RBC % (auto) PT INR APTT Anion Gap Estim Creat Clear Calc Estimated GFR POC Glucose 80 Random Glucose Fasting Glucose Lactic Acid Calcium COVID-19 ([facility]EE) COVID-19 Clin Com Assessment and Plan (1) Vascular dementia: Status: Acute (2) Acute osteomyelitis of phalanx of right foot: Status: Acute (3) Diabetes: Status: Acute (4) HTN (hypertension): Status: Acute (5) HLD (hyperlipidemia): Status: Acute Assessment and Plan: 75F presented with necrotic looking right 1st toe right first toe necrosis with OM due to PVD, DM continue - vanc, zosyn monitor trough, bmp vascular to see follow up blood cultures check arterial vascular studies local care - wound paint/betadine kerlex daily likely to need amputation DM with hypoglycemia insulin sliding scale, monitor POC will start maintance d51/2ns due to poor intake check a1c 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
[2021-05-15 08:46] LABS: Estimated Average Glucose 137 mg/dL; Hemoglobin A1c % 6.4 %
[2021-05-15 11:41] LABS: Glucose, Whole Blood 122 mg/dL (60-115)
[2021-05-15 15:25] VITALS: BP 157/76; PULSE 69; RESP 17; TEMP 36.1; O2SAT 100
[2021-05-15] MEDS: vancomycin HCL 1,250 MG in 0.9 % Sodium Chloride 250 ML 166.67 MG IV (15:51)
[2021-05-15 16:24] LABS: Glucose, Whole Blood 135 mg/dL (60-115)
[2021-05-15] MEDS: Enoxaparin Sodium 40 MG/0.4 ML SYRINGE SUBCUT (17:40)
[2021-05-15 20:01] LABS: Glucose, Whole Blood 202 mg/dL (60-115)
[2021-05-15 21:05] VITALS: BP 157/76; PULSE 69
[2021-05-15] MEDS: Insulin Lispro 100 UNIT/ML 3 ML VIAL SUBCUT (21:05)
[2021-05-15] MEDS: Mirtazapine 15 MG TABLET PO (21:05)
[2021-05-15] MEDS: Atorvastatin Calcium 40 MG TABLET PO (21:05)
[2021-05-15] MEDS: Tamsulosin HCL 0.4 MG CAPSULE PO (21:06)
[2021-05-16] VITALS: BP 125/63; PULSE 67; RESP 17; TEMP 36.2; O2SAT 98
[2021-05-16] MEDS: Acetaminophen 325 MG TABLET 650 MG PO (02:37)
[2021-05-16] MEDS: Piperacillin Sodium/Tazobactam 3.375 GM in 0.9 % Sodium Chloride 50 ML IV ×4 (02:38→21:37)
[2021-05-16] MEDS: 0.9 % Sodium Chloride Flush 3 ML SYRINGE IVFLUSH ×4 (02:39→21:37)
[2021-05-16 05:59] LABS: Hemoglobin 7.4 g/dl (12.0-16.0); Mean Corpuscular HGB Conc 30.8 g/dl (31.0-35.0); Mean Corpuscular Hemoglobin 27.5 pg (27.0-33.0); Mean Corpuscular Volume 89.2 fL (80-98); Platelet Count 242 X10*3/uL (160-400); Red Blood Count 2.69 X10*6/uL (4.20-5.50); Red Cell Distribution Width 13.2 % (11.0-16.0); White Blood Count 7.2 X10*3/uL (4.8-10.8)
[2021-05-16 06:25] LABS: Anion Gap 11 (12-20); Blood Urea Nitrogen 31 mg/dL (9-16); Carbon Dioxide 22 mmol/L (22-29); Chloride 107 mmol/L (96-108); Creatinine Clr Calc Pharmacy 52.4; Estimated Glomerular Filt Rate 60; Glucose Fasting 97 mg/dL (60-99); Potassium 3.3 mmol/L (3.3-5.1); Sodium 137 mmol/L (135-145)
[2021-05-16] MEDS: Dextrose 5 % and 0.45 % NaCl 1,000 ML 50 ML IVCONT (07:12)
[2021-05-16 09:10] LABS: Glucose, Whole Blood 101 mg/dL (60-115)
--- NOTE | 2021-05-16 09:28 | HO.PM.IMPN ---
Subjective Subjective Date of Service: 05/16/21 Interval History: cc: black toe had some belly pain yesterday, now resolved Cardiovascular Cardiovascular: Reports no additional cardiovascular complaints Respiratory Respiratory: Reports no additional respiratory complaints Physical Exam Vital Signs: Vital Signs: Last Vital Signs Temp 97.2 F 05/16/21 00:00 Pulse 67 05/16/21 00:00 Resp 17 05/16/21 00:00 BP 125/63 05/16/21 00:00 Pulse Ox 98 05/16/21 00:00 Body Mass Index 27.4 General: AO X 1, no acute distress, frail appearing, contracted Resp:? CTA bilateral, no accessory muscles used CVS: S1,S2,RRR GI: soft, non tender, non distended Neuro:? left hemiplegia (son reports some movement occasionally on left, but cannot appreciate any on exam), contracted skin: rle - first toe necrotic wound Objective Data Active Medications Acetaminophen (Acetaminophen 325 Mg Tablet) 650 mg PO Q6H PRN PRN Reason: fever/pain Last Admin: 05/16/21 02:37 Dose: 650 mg Documented by: JEVON Artificial Tears (Artificial Tears 15 Ml Drops) 1 drop EYE-BOTH BID [facility] Last Admin: 05/15/21 21:13 Dose: 1 drop Documented by: MARLENE Aspirin (Aspirin Enteric Coated 81 Mg Tablet.) 81 mg PO DAILY [facility] Last Admin: 05/15/21 08:02 Dose: 81 mg Documented by: JUNE Atorvastatin Calcium (Atorvastatin Calcium 40 Mg Tablet) 40 mg PO BEDTIME [facility] Last Admin: 05/15/21 21:05 Dose: 40 mg Documented by: MARLENE Bisacodyl (Bisacodyl 5 Mg Tablet.) 10 mg PO DAILY PRN PRN Reason: Constipation Bisacodyl (Bisacodyl 10 Mg Supp.Rect) 10 mg [place] DAILY PRN PRN Reason: Constipation Calcium Carbonate (Calcium Carbonate 750 Mg Tab.Chew) 750 mg PO QID PRN PRN Reason: Heartburn Dextrose (Dextrose 50 % 25 Gm/50 Ml Vial) 25 gm IVPUSH Q15M PRN; Protocol PRN Reason: per Hypoglycemia Standing Ord. Dorzolamide/Timolol (Dorzolamide/Timolo 2.23%/0.68% 10 Ml Drbtl) 1 drop EYE-BOTH BID [facility] Last Admin: 05/15/21 21:14 Dose: 1 drop Documented by: MARLENE Enoxaparin Sodium (Enoxaparin Sodium 40 Mg/0.4 Ml Syringe) 40 mg SUBCUT Q24H [facility] Last Admin: 05/15/21 17:40 Dose: 40 mg Documented by: JUNE Glucose (Glucose Gel 15 Gm Gel..Gram.) 15 gm PO Q15M PRN; Protocol PRN Reason: per Hypoglycemia Standing Ord. Piperacillin Sod/Tazobactam (Sod 3.375 gm/ Sodium Chloride) 50 mls @ 100 mls/hr IV Q6H [facility] Last Infusion: 05/16/21 06:12 Dose: 0 mls/hr Documented by: JEVON Vancomycin HCl 1,250 mg/ (Sodium Chloride) 250 mls @ 166.667 mls/hr IV Q24H [facility] Last Infusion: 05/15/21 17:33 Dose: 0 mls/hr Documented by: JUNE Dextrose/Sodium Chloride (D51/2ns) 1,000 mls @ 50 mls/hr IVCONT .Q20H [facility] Last Admin: 05/16/21 07:12 Dose: 50 mls/hr Documented by: JEVON Insulin Human Lispro (Insulin Lispro 100 Unit/Ml 3 Ml Vial) 0 unit SUBCUT QIDACHS [facility]; Protocol Last Admin: 05/15/21 21:05 Dose: 4 unit Documented by: MARLENE Latanoprost (Latanoprost 0.005 % Ophth Susie 2.5 Ml Drops) 1 drop EYE-BOTH DAILY [facility] Last Admin: 05/15/21 08:17 Dose: 1 drop Documented by: JUNE Magnesium Hydroxide (Milk Of Magnesia 30 Ml Oral.Susp) 30 ml PO BEDTIME PRN PRN Reason: Constipation Metoprolol Tartrate (Metoprolol Tartrate 50 Mg Tablet) 50 mg PO BID [facility]; Protocol Last Admin: 05/15/21 21:05 Dose: 50 mg Documented by: MARLENE Mirtazapine (Mirtazapine 15 Mg Tablet) 15 mg PO BEDTIME [facility] Last Admin: 05/15/21 21:05 Dose: 15 mg Documented by: MARLENE Omeprazole (Omeprazole 20 Mg Capsule.) 20 mg PO DAILY@0630 [facility] Last Admin: 05/16/21 07:06 Dose: Not Given Documented by: JEVON Non-Admin Reason: Patient Refused Ondansetron HCl (Ondansetron Odt 4 Mg Tab.Rapdis) 4 mg TRANSLINGU Q6H PRN PRN Reason: Nausea And Vomiting Pharmacy Consult (Consult Rx Perform Med Rec) 1 each MISCELLANE ONCE PRN PRN Reason: Consult order Pharmacy Consult (Consult Rx Vancomycin Dosing) 1 each MISCELLANE DAILY PRN PRN Reason: Consult order Senna (Sennosides 8.6 Mg Tablet) 8.6 mg PO DAILY [facility] Last Admin: 05/15/21 08:02 Dose: 8.6 mg Documented by: UJNE Senna (Sennosides 8.6 Mg Tablet) 17.2 mg PO BEDTIME PRN PRN Reason: Constipation Sodium Chloride (0.9 % Sodium Chloride Flush 3 Ml Syringe) 3 ml IVFLUSH QSHIFT [facility] Last Admin: 05/16/21 02:39 Dose: 3 ml Documented by: JEVON Tamsulosin HCl (Tamsulosin Hcl 0.4 Mg Capsule) 0.4 mg PO BEDTIME [facility] Last Admin: 05/15/21 21:06 Dose: 0.4 mg Documented by: MARLENE Labs CBC & Chem 7: 05/16/21 05:45 05/16/21 05:45 Labs: Laboratory Results - last 24 hr 05/15/21 05/15/21 05/15/21 11:34 16:18 19:57 MCV MCH MCHC RDW Plt Count MPV Absolute Nucleated RBC Nucleated RBC % (auto) Anion Gap Estim Creat Clear Calc Estimated GFR POC Glucose 122 H 135 H 202 H Fasting Glucose Calcium 05/16/21 05/16/21 05/16/21 05:45 05:45 09:06 MCV 89.2 MCH 27.5 MCHC 30.8 L RDW 13.2 Plt Count 242 MPV 9.0 L Absolute Nucleated RBC 0.000 Nucleated RBC % (auto) 0.0 Anion Gap 11 L Estim Creat Clear Calc 52.4 Estimated GFR 60 POC Glucose 101 Fasting Glucose 97 Calcium 8.0 L D Microbiology Microbiology Results: Microbiology 05/14/21 14:43 Blood Culture - Preliminary Blood - Venous No growth after 24 hours. 10/01/21 14:43 Blood Culture - Preliminary Blood - Venous No growth after 24 hours. Assessment and Plan (1) Vascular dementia: Status: Acute (2) Acute osteomyelitis of phalanx of right foot: Status: Acute (3) Diabetes: Status: Acute (4) HTN (hypertension): Status: Acute (5) HLD (hyperlipidemia): Status: Acute Assessment and Plan: 75F presented with necrotic looking right 1st toe right first toe necrosis with OM due to PVD, DM continue - vanc, zosyn monitor trough, bmp vascular appreciated will likely need BKA vs AKA arterial vascular US - severe bilateral stenosis local care - wound paint/betadine kerlex daily anemia likely inflammatory, monitor, would transfuse for goal >7 DM with hypoglycemia insulin sliding scale, monitor POC started d51/2ns due to poor intake a1c - 6.4 hypoglycemia resolved 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
[2021-05-16 09:30] VITALS: BP 125/63; PULSE 67
[2021-05-16] MEDS: Metoprolol Tartrate 50 MG TABLET PO ×2 (09:30→21:37)
[2021-05-16] MEDS: Sennosides 8.6 MG TABLET PO (09:31)
[2021-05-16] MEDS: Aspirin Enteric Coated 81 MG TABLET.DR PO (09:31)
[2021-05-16] MEDS: Dorzolamide/Timolo 2.23%/0.68% 10 ML DRBTL 1 DROP EYE-BOTH ×2 (09:46→21:38)
[2021-05-16] MEDS: Artificial Tears 15 ML DROPS 1 DROP EYE-BOTH ×2 (09:47→21:38)
[2021-05-16] MEDS: Latanoprost 0.005 % Ophth Sol 2.5 ML DROPS 1 DROP EYE-BOTH (09:47)
[2021-05-16 11:29] LABS: Glucose, Whole Blood 145 mg/dL (60-115)
--- NOTE | 2021-05-16 13:44 | MHC.CM.PN ---
Addendum entered by Madelaine Bailey 08/21/21 13:41: IMM WAS DELIVERED VIA T/C TO PTS HCP. A COPY WAS EMAILED TO HCP AT [email or web address] PER HIS REQUEST A COPY WAS ALSO SENT TO [facility] Original Note: CM CALLED PTS SON/HCP, SORAIDA GELA [phone], PER HIS REPORT: PT IS A LTC RESIDENT AT [facility] PT IS BED BOUND AT [facility] PCP IS ARSEN TORRE AND HER HCP IS ON FILE AND INVOKED IMM DELIVERED AND A COPY WAS EMAILED TO SORAIDA AT MARIA [email or web address] DCP: RETURN TO [facility] VIA BLS
[2021-05-16 15:58] VITALS: BP 130/70; PULSE 71; RESP 17; TEMP 36.2; O2SAT 93
[2021-05-16 16:34] LABS: Glucose, Whole Blood 233 mg/dL (60-115)
[2021-05-16] MEDS: Insulin Lispro 100 UNIT/ML 3 ML VIAL SUBCUT (16:59)
[2021-05-16] MEDS: vancomycin HCL 1,250 MG in 0.9 % Sodium Chloride 250 ML 166.67 MG IV (16:59)
[2021-05-16] MEDS: Enoxaparin Sodium 40 MG/0.4 ML SYRINGE SUBCUT (18:32)
[2021-05-16 20:47] LABS: Glucose, Whole Blood 166 mg/dL (60-115)
[2021-05-16] MEDS: Atorvastatin Calcium 40 MG TABLET PO (21:37)
[2021-05-16] MEDS: Mirtazapine 15 MG TABLET PO (21:37)
[2021-05-16] MEDS: Tamsulosin HCL 0.4 MG CAPSULE PO (21:37)
[2021-05-17] VITALS: BP 136/63; PULSE 64; RESP 17; TEMP 36.6; O2SAT 100
[2021-05-17] MEDS: Piperacillin Sodium/Tazobactam 3.375 GM in 0.9 % Sodium Chloride 50 ML IV ×4 (04:14→21:15)
[2021-05-17 06:13] LABS: Hematocrit 25.9 % (37-47); Mean Corpuscular HGB Conc 30.9 g/dl (31.0-35.0); Mean Corpuscular Hemoglobin 28.1 pg (27.0-33.0); Mean Corpuscular Volume 90.9 fL (80-98); Mean Platelet Volume 9.1 fL (9.4-12.3); Platelet Count 224 X10*3/uL (160-400); Red Blood Count 2.85 X10*6/uL (4.20-5.50); White Blood Count 6.8 X10*3/uL (4.8-10.8)
[2021-05-17 06:35] LABS: Anion Gap 10 (12-20); Blood Urea Nitrogen 15 mg/dL (9-16); Carbon Dioxide 23 mmol/L (22-29); Chloride 108 mmol/L (96-108); Creatinine Clr Calc Pharmacy 65.3; Estimated Glomerular Filt Rate > 60; Glucose Fasting 147 mg/dL (60-99); Potassium 3.5 mmol/L (3.3-5.1); Sodium 137 mmol/L (135-145)
[2021-05-17 07:47] VITALS: BP 141/67; PULSE 74; RESP 18; TEMP 36.9; O2SAT 100
[2021-05-17 08:00] LABS: Glucose, Whole Blood 141 mg/dL (60-115)
[2021-05-17] MEDS: 0.9 % Sodium Chloride Flush 3 ML SYRINGE IVFLUSH ×2 (09:30→16:52)
[2021-05-17] MEDS: Dorzolamide/Timolo 2.23%/0.68% 10 ML DRBTL 1 DROP EYE-BOTH ×2 (09:31→21:15)
[2021-05-17] MEDS: Sennosides 8.6 MG TABLET PO (09:31)
[2021-05-17] MEDS: Metoprolol Tartrate 50 MG TABLET PO ×2 (09:31→21:14)
[2021-05-17] MEDS: Aspirin Enteric Coated 81 MG TABLET.DR PO (09:31)
[2021-05-17] MEDS: Latanoprost 0.005 % Ophth Sol 2.5 ML DROPS 1 DROP EYE-BOTH (09:31)
[2021-05-17] MEDS: Artificial Tears 15 ML DROPS 1 DROP EYE-BOTH ×2 (09:31→21:14)
--- NOTE | 2021-05-17 10:27 | HO.PM.IMPN ---
Subjective Subjective Date of Service: 05/17/21 Interval History: cc: black toe no complaints, eating well, no pain Cardiovascular Cardiovascular: Reports no additional cardiovascular complaints Respiratory Respiratory: Reports no additional respiratory complaints Physical Exam Vital Signs: Vital Signs: Last Vital Signs Temp 98.4 F 05/17/21 07:47 Pulse 74 05/17/21 07:47 Resp 18 05/17/21 07:47 BP 141/67 H 05/17/21 07:47 Pulse Ox 100 05/17/21 07:47 Body Mass Index 27.4 General: AO X 1, no acute distress, frail appearing, contracted, answers simple questions appropriately Resp:? CTA bilateral, no accessory muscles used CVS: S1,S2,RRR GI: soft, non tender, non distended Neuro:? left hemiplegia (son reports some movement occasionally on left, but cannot appreciate any on exam), contracted skin: rle - first toe necrotic wound Objective Data Active Medications Acetaminophen (Acetaminophen 325 Mg Tablet) 650 mg PO Q6H PRN PRN Reason: fever/pain Last Admin: 05/16/21 02:37 Dose: 650 mg Documented by: JEVON Artificial Tears (Artificial Tears 15 Ml Drops) 1 drop EYE-BOTH BID [facility] Last Admin: 05/17/21 09:31 Dose: 1 drop Documented by: YESENIA Aspirin (Aspirin Enteric Coated 81 Mg Tablet.) 81 mg PO DAILY [facility] Last Admin: 05/17/21 09:31 Dose: 81 mg Documented by: YESENIA Atorvastatin Calcium (Atorvastatin Calcium 40 Mg Tablet) 40 mg PO BEDTIME [facility] Last Admin: 05/16/21 21:37 Dose: 40 mg Documented by: MARTELL Bisacodyl (Bisacodyl 5 Mg Tablet.) 10 mg PO DAILY PRN PRN Reason: Constipation Bisacodyl (Bisacodyl 10 Mg Supp.Rect) 10 mg [place] DAILY PRN PRN Reason: Constipation Calcium Carbonate (Calcium Carbonate 750 Mg Tab.Chew) 750 mg PO QID PRN PRN Reason: Heartburn Dextrose (Dextrose 50 % 25 Gm/50 Ml Vial) 25 gm IVPUSH Q15M PRN; Protocol PRN Reason: per Hypoglycemia Standing Ord. Dorzolamide/Timolol (Dorzolamide/Timolo 2.23%/0.68% 10 Ml Drbtl) 1 drop EYE-BOTH BID [facility] Last Admin: 05/17/21 09:31 Dose: 1 drop Documented by: YESENIA Enoxaparin Sodium (Enoxaparin Sodium 40 Mg/0.4 Ml Syringe) 40 mg SUBCUT Q24H [facility] Last Admin: 05/16/21 18:32 Dose: 40 mg Documented by: JUNE Glucose (Glucose Gel 15 Gm Gel..Gram.) 15 gm PO Q15M PRN; Protocol PRN Reason: per Hypoglycemia Standing Ord. Piperacillin Sod/Tazobactam (Sod 3.375 gm/ Sodium Chloride) 50 mls @ 100 mls/hr IV Q6H [facility] Last Infusion: 05/17/21 10:23 Dose: 0 mls/hr Documented by: YESENIA Vancomycin HCl 1,250 mg/ (Sodium Chloride) 250 mls @ 166.667 mls/hr IV Q24H [facility] Last Infusion: 05/16/21 18:59 Dose: 0 mls/hr Documented by: RICHI Insulin Human Lispro (Insulin Lispro 100 Unit/Ml 3 Ml Vial) 0 unit SUBCUT QIDACHS [facility]; Protocol Last Admin: 05/17/21 07:55 Dose: Not Given Documented by: ORIN Non-Admin Reason: No Insulin Coverage Latanoprost (Latanoprost 0.005 % Ophth Susie 2.5 Ml Drops) 1 drop EYE-BOTH DAILY [facility] Last Admin: 05/17/21 09:31 Dose: 1 drop Documented by: YESENIA Magnesium Hydroxide (Milk Of Magnesia 30 Ml Oral.Susp) 30 ml PO BEDTIME PRN PRN Reason: Constipation Metoprolol Tartrate (Metoprolol Tartrate 50 Mg Tablet) 50 mg PO BID [facility]; Protocol Last Admin: 05/17/21 09:31 Dose: 50 mg Documented by: YESENIA Mirtazapine (Mirtazapine 15 Mg Tablet) 15 mg PO BEDTIME [facility] Last Admin: 05/16/21 21:37 Dose: 15 mg Documented by: MARTELL Omeprazole (Omeprazole 20 Mg Capsule.Dr) 20 mg PO DAILY@0630 [facility] Last Admin: 05/17/21 06:07 Dose: Not Given Documented by: JEVON Non-Admin Reason: Patient Refused Ondansetron HCl (Ondansetron Odt 4 Mg Tab.Rapdis) 4 mg TRANSLINGU Q6H PRN PRN Reason: Nausea And Vomiting Pharmacy Consult (Consult Rx Perform Med Rec) 1 each MISCELLANE ONCE PRN PRN Reason: Consult order Pharmacy Consult (Consult Rx Vancomycin Dosing) 1 each MISCELLANE DAILY PRN PRN Reason: Consult order Senna (Sennosides 8.6 Mg Tablet) 8.6 mg PO DAILY [facility] Last Admin: 05/17/21 09:31 Dose: 8.6 mg Documented by: YESENIA Senna (Sennosides 8.6 Mg Tablet) 17.2 mg PO BEDTIME PRN PRN Reason: Constipation Sodium Chloride (0.9 % Sodium Chloride Flush 3 Ml Syringe) 3 ml IVFLUSH QSHIFT [facility] Last Admin: 05/17/21 09:30 Dose: 3 ml Documented by: YESENIA Tamsulosin HCl (Tamsulosin Hcl 0.4 Mg Capsule) 0.4 mg PO BEDTIME [facility] Last Admin: 05/16/21 21:37 Dose: 0.4 mg Documented by: MARTELL Labs CBC & Chem 7: 05/17/21 06:03 05/17/21 06:03 Labs: Laboratory Results - last 24 hr 05/16/21 05/16/21 05/16/21 11:25 16:20 20:40 MCV MCH MCHC RDW Plt Count MPV Absolute Nucleated RBC Nucleated RBC % (auto) Anion Gap Estim Creat Clear Calc Estimated GFR POC Glucose 145 H 233 H 166 H Fasting Glucose Calcium 05/17/21 05/17/21 05/17/21 06:03 06:03 07:44 MCV 90.9 MCH 28.1 MCHC 30.9 L RDW 13.0 Plt Count 224 MPV 9.1 L Absolute Nucleated RBC 0.000 Nucleated RBC % (auto) 0.0 Anion Gap 10 L Estim Creat Clear Calc 65.3 Estimated GFR > 60 POC Glucose 141 H Fasting Glucose 147 H Calcium 8.0 L Microbiology Microbiology Results: Microbiology 05/14/21 14:43 Blood Culture - Preliminary Blood - Venous No growth after 48 hours. 05/14/21 14:43 Blood Culture - Preliminary Blood - Venous No growth after 48 hours. Assessment and Plan (1) Vascular dementia: Status: Acute (2) Acute osteomyelitis of phalanx of right foot: Status: Acute (3) Diabetes: Status: Acute (4) HTN (hypertension): Status: Acute (5) HLD (hyperlipidemia): Status: Acute Assessment and Plan: 75F presented with necrotic looking right 1st toe right first toe necrosis with OM due to PVD, DM continue - vanc, zosyn monitor trough, bmp vascular appreciated will likely need BKA vs AKA arterial vascular US - severe bilateral stenosis local care - wound paint/betadine kerlex daily vascular follow up anemia likely inflammatory, monitor, would transfuse for goal >7 DM with hypoglycemia insulin sliding scale, monitor POC resolved, appetite improved, will dc ivf a1c - 6.4 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
[2021-05-17 11:41] LABS: Glucose, Whole Blood 190 mg/dL (60-115)
[2021-05-17] MEDS: Insulin Lispro 100 UNIT/ML 3 ML VIAL SUBCUT ×3 (11:53→21:14)
[2021-05-17 12:00] VITALS: BMI 27.4
--- NOTE | 2021-05-17 12:25 | PM.CNGS ---
History of Present Illness Consult details Consult date: 05/17/21 Narrative: Complex 75-year-old female with nonhealing right lower extremity ulcer presented at the beginning of the weekend. She has been in the hospital undergoing antibiotic treatment. She has undergone noninvasive arterial testing as well. Of note she has vascular dementia. She has been nonambulatory for some time. She is quite thin and cachectic as well. She now presents to us for vascular evaluation of this nonhealing right lower extremity ulcer. Review of Systems Review of Systems: Yes all other systems are reviewed and are negative Constitutional: Constitutional: Reports no additional constitutional complaints ENT: Reports Normal hearing present Cardiovascular: Cardiovascular: Denies chest pain, Denies chest pain at rest, Denies chest pain with activity and Denies pedal edema Respiratory: Respiratory: Denies cough Gastrointestinal: Gastrointestinal: Denies abdominal pain Musculoskeletal: Musculoskeletal: Denies abnormal gait, Denies muscle cramps and Denies radiating pain into limb Integumentary/Breasts: Skin/Breast: Denies skin ulcer and Denies wounds Neurologic: Reports Normal hearing present and Denies abnormal gait Psychiatric: Psychiatric: Reports no additional psychiatric complaints PMFSH Past Medical History Medical History CVA (cerebral vascular accident) Diabetes Femoral artery occlusion Glaucoma HLD (hyperlipidemia) HTN (hypertension) Superficial femoral artery occlusion Vascular dementia Family History Family History Mother CVA (cerebral vascular accident) Social History Social History Household Members: Other Housing: Residential Do you presently have visiting nurse or other home services: No (pt lives in nursing facility) Alcohol intake: never Patient Tobacco Use Status: Never used Tobacco Use of substances other than those prescribed or required for medical reasons: No Currently Displaying Signs/Symptoms of Drug Intoxication Withdrawal: No Have you been hit, kicked, punched, or otherwise hurt by someone within the past year? If so, by whom?: No Do you feel safe in your current relationship?: No Current Relationship Is there a partner from a previous relationship who is making you feel unsafe now?: No Are you made to feel afraid or neglected: No Advance Directives: No Advance Directives Information Provided: No Do you have thoughts of harming others: None Do you have a plan to hurt others: No Plan Recently lost weight without trying: Unsure service: No Current occupational status: retired and disabled Meds Allergies Allergy/AdvReac Type Severity Reaction Status Date / Time oxycodone [From PERCOCET] Allergy Mild HALLUCINATI Verified 05/15/21 16:06 ONS Active Medications: Current Medications Acetaminophen (Acetaminophen 325 Mg Tablet) 650 mg PO Q6H PRN PRN Reason: fever/pain Last Admin: 05/16/21 02:37 Dose: 650 mg Documented by: Artificial Tears (Artificial Tears 15 Ml Drops) 1 drop EYE-BOTH BID [facility] Last Admin: 05/17/21 09:31 Dose: 1 drop Documented by: Aspirin (Aspirin Enteric Coated 81 Mg Tablet.) 81 mg PO DAILY [facility] Last Admin: 05/17/21 09:31 Dose: 81 mg Documented by: Atorvastatin Calcium (Atorvastatin Calcium 40 Mg Tablet) 40 mg PO BEDTIME [facility] Last Admin: 05/16/21 21:37 Dose: 40 mg Documented by: Bisacodyl (Bisacodyl 5 Mg Tablet.Dr) 10 mg PO DAILY PRN PRN Reason: Constipation Bisacodyl (Bisacodyl 10 Mg Supp.Rect) 10 mg OR DAILY PRN PRN Reason: Constipation Calcium Carbonate (Calcium Carbonate 750 Mg Tab.Chew) 750 mg PO QID PRN PRN Reason: Heartburn Dextrose (Dextrose 50 % 25 Gm/50 Ml Vial) 25 gm IVPUSH Q15M PRN; Protocol PRN Reason: per Hypoglycemia Standing Ord. Dorzolamide/Timolol (Dorzolamide/Timolo 2.23%/0.68% 10 Ml Drbtl) 1 drop EYE-BOTH BID [facility] Last Admin: 05/17/21 09:31 Dose: 1 drop Documented by: Enoxaparin Sodium (Enoxaparin Sodium 40 Mg/0.4 Ml Syringe) 40 mg SUBCUT Q24H [facility] Last Admin: 05/16/21 18:32 Dose: 40 mg Documented by: Glucose (Glucose Gel 15 Gm Gel..Gram.) 15 gm PO Q15M PRN; Protocol PRN Reason: per Hypoglycemia Standing Ord. Piperacillin Sod/Tazobactam (Sod 3.375 gm/ Sodium Chloride) 50 mls @ 100 mls/hr IV Q6H [facility] Last Infusion: 05/17/21 10:23 Dose: Infused Documented by: Vancomycin HCl 1,250 mg/ (Sodium Chloride) 250 mls @ 166.667 mls/hr IV Q24H [facility] Last Infusion: 05/16/21 18:59 Dose: Infused Documented by: Insulin Human Lispro (Insulin Lispro 100 Unit/Ml 3 Ml Vial) 0 unit SUBCUT QIDACHS [facility]; Protocol Last Admin: 05/17/21 11:53 Dose: 2 unit Documented by: Latanoprost (Latanoprost 0.005 % Ophth Susie 2.5 Ml Drops) 1 drop EYE-BOTH DAILY [facility] Last Admin: 05/17/21 09:31 Dose: 1 drop Documented by: Magnesium Hydroxide (Milk Of Magnesia 30 Ml Oral.Susp) 30 ml PO BEDTIME PRN PRN Reason: Constipation Metoprolol Tartrate (Metoprolol Tartrate 50 Mg Tablet) 50 mg PO BID [facility]; Protocol Last Admin: 05/17/21 09:31 Dose: 50 mg Documented by: Mirtazapine (Mirtazapine 15 Mg Tablet) 15 mg PO BEDTIME [facility] Last Admin: 05/16/21 21:37 Dose: 15 mg Documented by: Omeprazole (Omeprazole 20 Mg Capsule.Dr) 20 mg PO DAILY@0630 [facility] Last Admin: 05/17/21 06:07 Dose: Not Given Documented by: Ondansetron HCl (Ondansetron Odt 4 Mg Tab.Rapdis) 4 mg TRANSLINGU Q6H PRN PRN Reason: Nausea And Vomiting Pharmacy Consult (Consult Rx Perform Med Rec) 1 each MISCELLANE ONCE PRN PRN Reason: Consult order Pharmacy Consult (Consult Rx Vancomycin Dosing) 1 each MISCELLANE DAILY PRN PRN Reason: Consult order Senna (Sennosides 8.6 Mg Tablet) 8.6 mg PO DAILY [facility] Last Admin: 05/17/21 09:31 Dose: 8.6 mg Documented by: Senna (Sennosides 8.6 Mg Tablet) 17.2 mg PO BEDTIME PRN PRN Reason: Constipation Sodium Chloride (0.9 % Sodium Chloride Flush 3 Ml Syringe) 3 ml IVFLUSH QSHIFT [facility] Last Admin: 05/17/21 09:30 Dose: 3 ml Documented by: Tamsulosin HCl (Tamsulosin Hcl 0.4 Mg Capsule) 0.4 mg PO BEDTIME [facility] Last Admin: 05/16/21 21:37 Dose: 0.4 mg Documented by: Home Medications Medication Instructions Recorded Confirmed Last Taken Type acetaminophen 325 mg tablet 650 mg PO Q6H PRN 05/14/21 05/14/21 Unknown History aspirin 81 mg tablet,delayed 81 mg PO DAILY 05/14/21 05/14/21 Unknown History release bisacodyl 10 mg rectal suppository 10 mg OR DAILY PRN 05/14/21 05/14/21 Unknown History bisacodyl 5 mg tablet 10 mg PO DAILY PRN 05/14/21 05/14/21 Unknown History calcium carbonate 500 mg calcium 1,000 mg PO QID PRN 05/14/21 05/14/21 Unknown History (1,250 mg) chewable tablet dorzolamide 22.3 mg-timolol 6.8 1 drp OPHTHALMIC (EYE) BID 05/14/21 05/14/21 Unknown History mg/mL eye drops insulin detemir U-100 100 unit/mL 14 unit SUBCUT DAILY 05/14/21 05/14/21 Unknown History (3 mL) subcutaneous pen (Levemir FlexTouch U-100 Insulin) latanoprost 0.005 % eye drops 1 drp OPHTHALMIC (EYE) DAILY 05/14/21 05/14/21 Unknown History magnesium hydroxide 400 mg/5 mL 30 ml PO BEDTIME PRN 05/14/21 05/14/21 Unknown History oral suspension (Milk of Magnesia) metoprolol tartrate 50 mg tablet 50 mg PO BID 05/14/21 05/14/21 Unknown History mirtazapine 15 mg tablet 15 mg PO BEDTIME 05/14/21 05/14/21 Unknown History omeprazole 20 mg capsule,delayed 20 mg PO DAILY@0630 05/14/21 05/14/21 Unknown History release ondansetron 4 mg disintegrating 4 mg PO Q6H PRN 05/14/21 05/14/21 Unknown History tablet peg 400-propylene glycol 0.4 %-0.3 1 drp OPHTHALMIC (EYE) BID 05/14/21 05/14/21 Unknown History % eye drops (Systane Ultra) sennosides 8.6 mg tablet (senna) 8.6 mg PO DAILY 05/14/21 05/14/21 Unknown History sennosides 8.6 mg tablet (senna) 17.2 mg PO BEDTIME PRN 05/14/21 05/14/21 Unknown History tamsulosin 0.4 mg capsule 0.4 mg PO BEDTIME 05/14/21 05/14/21 Unknown History Physical Exam Vital Signs: Vital Signs: Last Vital Signs Temp 98.4 F 05/17/21 07:47 Pulse 74 05/17/21 07:47 Resp 18 05/17/21 07:47 BP 141/67 H 05/17/21 07:47 Pulse Ox 100 05/17/21 07:47 Body Mass Index 27.4 Const: General: cooperative, healthy appearing and comfortable Orientation/consciousness: oriented to person, oriented to place and oriented to time HENMT: Head: Yes normal to inspection Neck: Neck: Yes normal visual inspection Carotids: no bruits Chest: Chest palpation & inspection: normal inspection of the chest Resp: Effort & Inspection: normal respiratory effort and able to speak in complete sentences Auscultation: clear to auscultation bilaterally, no crackles, no rales, no rhonchi and no wheezes Cardio: Rate: regular rate Rhythm: regular rhythm Heart sounds: S1 normal heart sound present and S2 normal heart sound present Bruits: no carotid bruits Peripheral pulses: dorsalis pedis present (Bilateral DP signals only) GI: Inspection: Yes normal to inspection Skin: Wounds: wounds noted (Right foot wound probing to bone) Hair: normal Neuro: General: oriented to person, oriented to place and oriented to time Cranial nerves: Yes CN's II-XII intact bilaterally and Yes Normal hearing present Cognition (Neuro): normal cognition Motor exam (neuro): 5/5 motor strength present throughout Extrem: Other: venous exam: No significant superficial varicosities or spider telangiectasias, minimal edema General: No clubbing, No cyanosis and No edema Psych: Appearance: grossly normal Mental Status: mental status grossly normal Speech and movement: Normal speech and movement present Results Labs Result diagrams: 05/17/21 06:03 05/17/21 06:03 Labs: Abnormal lab results 05/16/21 05/16/21 05/17/21 Range/Units 16:20 20:40 06:03 RBC 2.85 L (4.20-5.50) X10*6/uL Hgb 8.0 L (12.0-16.0) g/dl Hct 25.9 L (37-47) % MCHC 30.9 L (31.0-35.0) g/dl MPV 9.1 L (9.4-12.3) fL Anion Gap (12-20) POC Glucose 233 H 166 H (60-115) mg/dL Fasting Glucose (60-99) mg/dL Calcium (8.4-10.2) mg/dL 05/17/21 05/17/21 05/17/21 Range/Units 06:03 07:44 11:35 RBC (4.20-5.50) X10*6/uL Hgb (12.0-16.0) g/dl Hct (37-47) % MCHC (31.0-35.0) g/dl MPV (9.4-12.3) fL Anion Gap 10 L (12-20) POC Glucose 141 H 190 H (60-115) mg/dL Fasting Glucose 147 H (60-99) mg/dL Calcium 8.0 L (8.4-10.2) mg/dL Short CBC 05/17/21 Range/Units 06:03 WBC 6.8 (4.8-10.8) X10*3/uL Hgb 8.0 L (12.0-16.0) g/dl Hct 25.9 L (37-47) % Plt Count 224 (160-400) X10*3/uL BMP 05/17/21 06:03 Sodium 137 Potassium 3.5 Chloride 108 Carbon Dioxide 23 BUN 15 D Creatinine 0.73 Calcium 8.0 L All other labs normal. Assessment and Plan (1) PAD (peripheral artery disease): Status: Acute In short patient has right lower extremity critical peripheral vascular disease. She has a nonhealing ulcer. On noninvasive workup she was noted to have an BERNARDO on the right side of 0.14. Due to her nonambulatory status and vascular dementia my only recommendation would be an above knee amputation. It will be the safest in simplest operation for her. I do not think it would be worthwhile for an endovascular intervention or any sort of bypass that she may not tolerate. I will reach out to the son in regards to potential amputation and expectations of overall level of care. Thank you for allowing us to assist in her care. If there are any questions or concerns please do not hesitate to contact us. Procedures Date of Service Date of Service: 05/17/21
--- NOTE | 2021-05-17 15:26 | MHC.CM.PN ---
EMR REVIEWED, PER SURGICAL PT WILL NEED A ABOVE KNEE AMP, ANTICIPATE PT WILL REMAIN INPT 2-3 DAYS AND WILL THEN RETURN TO SNF.
[2021-05-17 16:00] VITALS: BP 138/63; TEMP 36.3; O2SAT 100
[2021-05-17 16:08] LABS: Glucose, Whole Blood 169 mg/dL (60-115)
[2021-05-17 16:40] LABS: Vancomycin Trough 15.7 mcg/mL (10.0-20.0)
[2021-05-17] MEDS: vancomycin HCL 1,250 MG in 0.9 % Sodium Chloride 250 ML 166.67 MG IV (16:51)
[2021-05-17] MEDS: Enoxaparin Sodium 40 MG/0.4 ML SYRINGE SUBCUT (16:51)
--- NOTE | 2021-05-17 17:26 | HE.PHANOTE ---
VANCOMYCIN DRUG ADDENDUM BASED ON TROUGH OF 15.7. DOSE DECREASED TO 1000Q 24 TARGET AUC OF 478MG/L HR WITH TROUGH OF 14.7. NEXT TROUGH 10@1500
[2021-05-17 20:37] LABS: Glucose, Whole Blood 197 mg/dL (60-115)
[2021-05-17 21:14] VITALS: BP 138/63; PULSE 74
[2021-05-17] MEDS: Atorvastatin Calcium 40 MG TABLET PO (21:14)
[2021-05-17] MEDS: Mirtazapine 15 MG TABLET PO (21:14)
[2021-05-17] MEDS: Tamsulosin HCL 0.4 MG CAPSULE PO (21:17)
[2021-05-18] VITALS: BP 151/67; PULSE 71; RESP 18; TEMP 36.2; O2SAT 99
[2021-05-18] MEDS: 0.9 % Sodium Chloride Flush 3 ML SYRINGE IVFLUSH ×4 (00:13→22:11)
[2021-05-18] MEDS: Piperacillin Sodium/Tazobactam 3.375 GM in 0.9 % Sodium Chloride 50 ML IV ×4 (02:55→22:07)
[2021-05-18 05:37] LABS: Hematocrit 24.9 % (37-47); Hemoglobin 7.7 g/dl (12.0-16.0); Mean Corpuscular HGB Conc 30.9 g/dl (31.0-35.0); Mean Corpuscular Hemoglobin 27.5 pg (27.0-33.0); Mean Corpuscular Volume 88.9 fL (80-98); Mean Platelet Volume 9.1 fL (9.4-12.3); Platelet Count 260 X10*3/uL (160-400); Red Cell Distribution Width 12.9 % (11.0-16.0); White Blood Count 7.2 X10*3/uL (4.8-10.8)
[2021-05-18 06:02] LABS: Anion Gap 13 (12-20); Blood Urea Nitrogen 9 mg/dL (9-16); Carbon Dioxide 22 mmol/L (22-29); Chloride 107 mmol/L (96-108); Creatinine Clr Calc Pharmacy 65.3; Estimated Glomerular Filt Rate > 60; Glucose Fasting 152 mg/dL (60-99); Potassium 3.7 mmol/L (3.3-5.1); Sodium 138 mmol/L (135-145)
[2021-05-18 07:48] VITALS: BP 154/80; PULSE 78; RESP 16; TEMP 36.6; O2SAT 98
[2021-05-18 07:51] LABS: Glucose, Whole Blood 133 mg/dL (60-115)
--- NOTE | 2021-05-18 09:37 | P.PNIM_ITS ---
Subjective Subjective Date of Service: 05/18/21 Interval History: cc: black toe denies any pain Cardiovascular Cardiovascular: Reports no additional cardiovascular complaints Respiratory Respiratory: Reports no additional respiratory complaints Physical Exam Vital Signs: Vital Signs: Last Vital Signs Temp 97.8 F 05/18/21 07:48 Pulse 78 05/18/21 07:48 Resp 16 05/18/21 07:48 BP 154/80 H 05/18/21 07:48 Pulse Ox 98 05/18/21 07:48 Body Mass Index 27.4 General: AO X 1, no acute distress, frail appearing, contracted, answers simple questions appropriately Resp:? CTA bilateral, no accessory muscles used CVS: S1,S2,RRR GI: soft, non tender, non distended Neuro:? left hemiplegia (son reports some movement occasionally on left, but cannot appreciate any on exam), contracted skin: rle - first toe necrotic wound Objective Data Active Medications Acetaminophen (Acetaminophen 325 Mg Tablet) 650 mg PO Q6H PRN PRN Reason: fever/pain Last Admin: 05/16/21 02:37 Dose: 650 mg Documented by: JEVON Artificial Tears (Artificial Tears 15 Ml Drops) 1 drop EYE-BOTH BID [facility] Last Admin: 05/17/21 21:14 Dose: 1 drop Documented by: AMY Aspirin (Aspirin Enteric Coated 81 Mg Tablet.) 81 mg PO DAILY [facility] Last Admin: 05/17/21 09:31 Dose: 81 mg Documented by: YESENIA Atorvastatin Calcium (Atorvastatin Calcium 40 Mg Tablet) 40 mg PO BEDTIME [facility] Last Admin: 05/17/21 21:14 Dose: 40 mg Documented by: AMY Bisacodyl (Bisacodyl 5 Mg Tablet.Dr) 10 mg PO DAILY PRN PRN Reason: Constipation Bisacodyl (Bisacodyl 10 Mg Supp.Rect) 10 mg FL DAILY PRN PRN Reason: Constipation Calcium Carbonate (Calcium Carbonate 750 Mg Tab.Chew) 750 mg PO QID PRN PRN Reason: Heartburn Dextrose (Dextrose 50 % 25 Gm/50 Ml Vial) 25 gm IVPUSH Q15M PRN; Protocol PRN Reason: per Hypoglycemia Standing Ord. Dorzolamide/Timolol (Dorzolamide/Timolo 2.23%/0.68% 10 Ml Drbtl) 1 drop EYE- BOTH BID [facility] Last Admin: 05/17/21 21:15 Dose: 1 drop Documented by: AMY Enoxaparin Sodium (Enoxaparin Sodium 40 Mg/0.4 Ml Syringe) 40 mg SUBCUT Q24H [facility] Last Admin: 05/17/21 16:51 Dose: 40 mg Documented by: AMY Glucose (Glucose Gel 15 Gm Gel..Gram.) 15 gm PO Q15M PRN; Protocol PRN Reason: per Hypoglycemia Standing Ord. Piperacillin Sod/Tazobactam (Sod 3.375 gm/ Sodium Chloride) 50 mls @ 100 mls/hr IV Q6H [facility] Last Admin: 05/18/21 09:17 Dose: 100 mls/hr Documented by: GRADY-EHEAC Vancomycin HCl 1,000 mg/ (Sodium Chloride) 270 mls @ 270 mls/hr IV Q24H [facility] Insulin Human Lispro (Insulin Lispro 100 Unit/Ml 3 Ml Vial) 0 unit SUBCUT QIDACHS [facility]; Protocol Last Admin: 05/18/21 07:56 Dose: Not Given Documented by: MONSERRAT Non-Admin Reason: No Insulin Coverage Latanoprost (Latanoprost 0.005 % Ophth Susie 2.5 Ml Drops) 1 drop EYE-BOTH DAILY [facility] Last Admin: 05/17/21 09:31 Dose: 1 drop Documented by: YESENIA Magnesium Hydroxide (Milk Of Magnesia 30 Ml Oral.Susp) 30 ml PO BEDTIME PRN PRN Reason: Constipation Metoprolol Tartrate (Metoprolol Tartrate 50 Mg Tablet) 50 mg PO BID [facility]; Protocol Last Admin: 05/17/21 21:14 Dose: 50 mg Documented by: AMY Mirtazapine (Mirtazapine 15 Mg Tablet) 15 mg PO BEDTIME [facility] Last Admin: 05/17/21 21:14 Dose: 15 mg Documented by: AMY Omeprazole (Omeprazole 20 Mg Capsule.Dr) 20 mg PO DAILY@0630 [facility] Last Admin: 05/18/21 03:33 Dose: Not Given Documented by: MORALES Non-Admin Reason: NPO Ondansetron HCl (Ondansetron Odt 4 Mg Tab.Rapdis) 4 mg TRANSLINGU Q6H PRN PRN Reason: Nausea And Vomiting Pharmacy Consult (Consult Rx Perform Med Rec) 1 each MISCELLANE ONCE PRN PRN Reason: Consult order Pharmacy Consult (Consult Rx Vancomycin Dosing) 1 each MISCELLANE DAILY PRN PRN Reason: Consult order Senna (Sennosides 8.6 Mg Tablet) 8.6 mg PO DAILY [facility] Last Admin: 05/17/21 09:31 Dose: 8.6 mg Documented by: YESENIA Senna (Sennosides 8.6 Mg Tablet) 17.2 mg PO BEDTIME PRN PRN Reason: Constipation Sodium Chloride (0.9 % Sodium Chloride Flush 3 Ml Syringe) 3 ml IVFLUSH QSHIFT [facility] Last Admin: 05/18/21 09:30 Dose: 3 ml Documented by: GRADY-EHEAC Tamsulosin HCl (Tamsulosin Hcl 0.4 Mg Capsule) 0.4 mg PO BEDTIME [facility] Last Admin: 05/17/21 21:17 Dose: 0.4 mg Documented by: AMY Labs CBC & Chem 7: 05/18/21 05:13 05/18/21 05:13 Labs: Laboratory Results - last 24 hr 05/17/21 05/17/21 05/17/21 11:35 15:45 16:02 MCV MCH MCHC RDW Plt Count MPV Absolute Nucleated RBC Nucleated RBC % (auto) Anion Gap Estim Creat Clear Calc Estimated GFR POC Glucose 190 H 169 H Fasting Glucose Calcium Vancomycin Trough 15.7 05/17/21 05/18/21 05/18/21 20:32 05:13 05:13 MCV 88.9 MCH 27.5 MCHC 30.9 L RDW 12.9 Plt Count 260 MPV 9.1 L Absolute Nucleated RBC 0.000 Nucleated RBC % (auto) 0.0 Anion Gap 13 Estim Creat Clear Calc 65.3 Estimated GFR > 60 POC Glucose 197 H Fasting Glucose 152 H Calcium 8.0 L Vancomycin Trough 05/18/21 07:44 MCV MCH MCHC RDW Plt Count MPV Absolute Nucleated RBC Nucleated RBC % (auto) Anion Gap Estim Creat Clear Calc Estimated GFR POC Glucose 133 H Fasting Glucose Calcium Vancomycin Trough Assessment and Plan (1) Vascular dementia: Status: Acute (2) Acute osteomyelitis of phalanx of right foot: Status: Acute (3) Diabetes: Status: Acute (4) HTN (hypertension): Status: Acute (5) HLD (hyperlipidemia): Status: Acute Assessment and Plan: 75F presented with necrotic looking right 1st toe right first toe necrosis with OM due to PVD, DM continue - vanc, zosyn monitor trough, bmp vascular appreciated will likely need BKA vs AKA initially planned for surgery today, however, son/HCP, Yeisno, unsure if he would like to pursue surgery vs conservative management arterial vascular US - severe bilateral stenosis local care - wound paint/betadine kerlex daily anemia likely inflammatory, monitor, would transfuse for goal >7 stable between 7-8 DM with hypoglycemia insulin sliding scale, monitor POC resolved, appetite improved a1c - 6.4 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
[2021-05-18] MEDS: vancomycin HCL 1,000 MG in 0.9 % Sodium Chloride 250 ML 270 MG IV (15:57)
[2021-05-18 16:00] VITALS: BP 175/70; PULSE 74; RESP 18; TEMP 36.3; O2SAT 96
[2021-05-18 17:10] LABS: Glucose, Whole Blood 125 mg/dL (60-115)
[2021-05-18] MEDS: Enoxaparin Sodium 40 MG/0.4 ML SYRINGE SUBCUT (18:10)
--- NOTE | 2021-05-18 19:29 | PC.NURSE ---
Patient refused AM PO medications and lunchtime POC. Dr. Campbell was notified. Son was called to inform, but he did not answer- voicemail was left.
[2021-05-18 20:05] LABS: Glucose, Whole Blood 113 mg/dL (60-115)
[2021-05-18] MEDS: Atorvastatin Calcium 40 MG TABLET PO (22:07)
[2021-05-18] MEDS: Tamsulosin HCL 0.4 MG CAPSULE PO (22:07)
[2021-05-18] MEDS: Mirtazapine 15 MG TABLET PO (22:07)
[2021-05-18 22:08] VITALS: BP 136/62; PULSE 85
[2021-05-18] MEDS: Metoprolol Tartrate 50 MG TABLET PO (22:08)
[2021-05-18] MEDS: Dorzolamide/Timolo 2.23%/0.68% 10 ML DRBTL 1 DROP EYE-BOTH (22:21)
[2021-05-18] MEDS: Artificial Tears 15 ML DROPS 1 DROP EYE-BOTH (22:21)
[2021-05-18 23:21] VITALS: BP 138/62; PULSE 70; RESP 16; TEMP 36.2; O2SAT 97
[2021-05-19] MEDS: Piperacillin Sodium/Tazobactam 3.375 GM in 0.9 % Sodium Chloride 50 ML IV ×4 (02:52→21:29)
[2021-05-19 06:24] LABS: Hematocrit 23.8 % (37-47); Hemoglobin 7.5 g/dl (12.0-16.0); Mean Corpuscular HGB Conc 31.5 g/dl (31.0-35.0); Mean Corpuscular Hemoglobin 27.8 pg (27.0-33.0); Mean Corpuscular Volume 88.1 fL (80-98); Mean Platelet Volume 8.8 fL (9.4-12.3); Platelet Count 232 X10*3/uL (160-400); White Blood Count 6.4 X10*3/uL (4.8-10.8)
[2021-05-19 06:38] LABS: Anion Gap 9 (12-20); Blood Urea Nitrogen 7 mg/dL (9-16); Calcium 8.1 mg/dL (8.4-10.2); Carbon Dioxide 25 mmol/L (22-29); Chloride 108 mmol/L (96-108); Creatinine Clr Calc Pharmacy 70.1; Estimated Glomerular Filt Rate > 60; Glucose Fasting 88 mg/dL (60-99); Potassium 3.4 mmol/L (3.3-5.1); Sodium 139 mmol/L (135-145)
[2021-05-19 07:12] LABS: Glucose, Whole Blood 86 mg/dL (60-115)
[2021-05-19 07:40] VITALS: BP 198/79; PULSE 71; RESP 16; TEMP 36.7; O2SAT 99
[2021-05-19] MEDS: Sennosides 8.6 MG TABLET PO (08:51)
[2021-05-19] MEDS: Aspirin Enteric Coated 81 MG TABLET.DR PO (08:51)
[2021-05-19] MEDS: Metoprolol Tartrate 50 MG TABLET PO ×2 (08:51→21:30)
[2021-05-19] MEDS: Latanoprost 0.005 % Ophth Sol 2.5 ML DROPS 1 DROP EYE-BOTH (08:52)
[2021-05-19] MEDS: Dorzolamide/Timolo 2.23%/0.68% 10 ML DRBTL 1 DROP EYE-BOTH ×2 (08:52→21:31)
[2021-05-19] MEDS: Artificial Tears 15 ML DROPS 1 DROP EYE-BOTH ×2 (08:52→21:31)
[2021-05-19] MEDS: 0.9 % Sodium Chloride Flush 3 ML SYRINGE IVFLUSH ×3 (08:53→21:31)
--- NOTE | 2021-05-19 11:05 | HO.VASCPN ---
Subjective Subjective Date of Service: 05/19/21 Patient reports: no new complaints Interval history: Patient seen and examined. No significant events over the last day or 2. Continues to have this nonhealing ulcer. Now for routine follow-up. Physical Exam Vital Signs: Vital Signs: Last Vital Signs Temp 98.0 F 05/19/21 07:40 Pulse 71 05/19/21 07:40 Resp 16 05/19/21 07:40 BP 198/79 H 05/19/21 07:40 Pulse Ox 99 05/19/21 07:40 Body Mass Index 27.4 Const: General: cooperative, healthy appearing and comfortable Orientation/consciousness: oriented to person, oriented to place and oriented to time HENMT: Head: Yes normal to inspection Neck: Neck: Yes normal visual inspection Carotids: no bruits Chest: Chest palpation & inspection: normal inspection of the chest Resp: Effort & Inspection: normal respiratory effort and able to speak in complete sentences Auscultation: clear to auscultation bilaterally, no crackles, no rales, no rhonchi and no wheezes Cardio: Rate: regular rate Rhythm: regular rhythm Heart sounds: S1 normal heart sound present and S2 normal heart sound present Bruits: no carotid bruits Peripheral pulses: Peripheral pulses 2+ throughout GI: Inspection: Yes normal to inspection Skin: Wounds: wounds noted (Nonhealing right foot ulcer) Hair: normal Neuro: General: oriented to person, oriented to place and oriented to time Cranial nerves: Yes CN's II-XII intact bilaterally and Yes Normal hearing present Cognition (Neuro): normal cognition Motor exam (neuro): 5/5 motor strength present throughout Extrem: Other: venous exam: No significant superficial varicosities or spider telangiectasias, minimal edema General: No clubbing, No cyanosis and No edema Psych: Appearance: grossly normal Mental Status: mental status grossly normal Speech and movement: Normal speech and movement present Progress Note: A&P Assessment and plan (1) PAD (peripheral artery disease): Status: Acute Assessment and Plan: In short patient has severe peripheral vascular disease with a nonhealing ulcer. I reached out to the patient's healthcare proxy and son and Yeison again today. I was trying to ascertain which way they were headed towards in terms an above knee amputation vs. hospice care. He is trying to reach out to his sister so they can have a family discussion. They would like to also ascertain their mother's wishes. If the family decides to proceed will follow up and plan for an above knee amputation. Thank you for allowing us to assist in his care. We will follow on an as-needed basis. Please note a total of 40 minutes was required for this patient's care between review of chart imaging assessment and management of services including telephone discussion with the son Fall Risk Details Current Medications: Current Medications Acetaminophen (Acetaminophen 325 Mg Tablet) 650 mg PO Q6H PRN PRN Reason: fever/pain Last Admin: 05/16/21 02:37 Dose: 650 mg Documented by: Artificial Tears (Artificial Tears 15 Ml Drops) 1 drop EYE-BOTH BID [facility] Last Admin: 05/19/21 08:52 Dose: 1 drop Documented by: Aspirin (Aspirin Enteric Coated 81 Mg Tablet.) 81 mg PO DAILY [facility] Last Admin: 05/19/21 08:51 Dose: 81 mg Documented by: Atorvastatin Calcium (Atorvastatin Calcium 40 Mg Tablet) 40 mg PO BEDTIME [facility] Last Admin: 05/18/21 22:07 Dose: 40 mg Documented by: Bisacodyl (Bisacodyl 5 Mg Tablet.) 10 mg PO DAILY PRN PRN Reason: Constipation Bisacodyl (Bisacodyl 10 Mg Supp.Rect) 10 mg IN DAILY PRN PRN Reason: Constipation Calcium Carbonate (Calcium Carbonate 750 Mg Tab.Chew) 750 mg PO QID PRN PRN Reason: Heartburn Dextrose (Dextrose 50 % 25 Gm/50 Ml Vial) 25 gm IVPUSH Q15M PRN; Protocol PRN Reason: per Hypoglycemia Standing Ord. Dorzolamide/Timolol (Dorzolamide/Timolo 2.23%/0.68% 10 Ml Drbtl) 1 drop EYE-BOTH BID [facility] Last Admin: 05/19/21 08:52 Dose: 1 drop Documented by: Enoxaparin Sodium (Enoxaparin Sodium 40 Mg/0.4 Ml Syringe) 40 mg SUBCUT Q24H [facility] Last Admin: 05/18/21 18:10 Dose: 40 mg Documented by: Glucose (Glucose Gel 15 Gm Gel..Gram.) 15 gm PO Q15M PRN; Protocol PRN Reason: per Hypoglycemia Standing Ord. Piperacillin Sod/Tazobactam (Sod 3.375 gm/ Sodium Chloride) 50 mls @ 100 mls/hr IV Q6H [facility] Last Infusion: 10/06/21 09:39 Dose: Infused Documented by: Vancomycin HCl 1,000 mg/ (Sodium Chloride) 270 mls @ 270 mls/hr IV Q24H [facility] Last Infusion: 05/18/21 17:54 Dose: Infused Documented by: Insulin Human Lispro (Insulin Lispro 100 Unit/Ml 3 Ml Vial) 0 unit SUBCUT QIDACHS [facility]; Protocol Last Admin: 05/19/21 07:21 Dose: Not Given Documented by: Latanoprost (Latanoprost 0.005 % Ophth Susie 2.5 Ml Drops) 1 drop EYE-BOTH DAILY [facility] Last Admin: 05/19/21 08:52 Dose: 1 drop Documented by: Magnesium Hydroxide (Milk Of Magnesia 30 Ml Oral.Susp) 30 ml PO BEDTIME PRN PRN Reason: Constipation Metoprolol Tartrate (Metoprolol Tartrate 50 Mg Tablet) 50 mg PO BID [facility]; Protocol Last Admin: 05/19/21 08:51 Dose: 50 mg Documented by: Mirtazapine (Mirtazapine 15 Mg Tablet) 15 mg PO BEDTIME [facility] Last Admin: 05/18/21 22:07 Dose: 15 mg Documented by: Omeprazole (Omeprazole 20 Mg Capsule.Dr) 20 mg PO DAILY@0630 [facility] Last Admin: 05/19/21 06:03 Dose: Not Given Documented by: Ondansetron HCl (Ondansetron Odt 4 Mg Tab.Rapdis) 4 mg TRANSLINGU Q6H PRN PRN Reason: Nausea And Vomiting Pharmacy Consult (Consult Rx Perform Med Rec) 1 each MISCELLANE ONCE PRN PRN Reason: Consult order Pharmacy Consult (Consult Rx Vancomycin Dosing) 1 each MISCELLANE DAILY PRN PRN Reason: Consult order Senna (Sennosides 8.6 Mg Tablet) 8.6 mg PO DAILY [facility] Last Admin: 05/19/21 08:51 Dose: 8.6 mg Documented by: Senna (Sennosides 8.6 Mg Tablet) 17.2 mg PO BEDTIME PRN PRN Reason: Constipation Sodium Chloride (0.9 % Sodium Chloride Flush 3 Ml Syringe) 3 ml IVFLUSH QSHIFT [facility] Last Admin: 05/19/21 08:53 Dose: 3 ml Documented by: Tamsulosin HCl (Tamsulosin Hcl 0.4 Mg Capsule) 0.4 mg PO BEDTIME [facility] Last Admin: 05/18/21 22:07 Dose: 0.4 mg Documented by: Time Spent With Patient Time: Total time spent is greater than 50% in coordination of care (as documented) at patient's floor/unit and/or counseling patient: Time with patient: Greater than 35 minutes Procedures Date of Service Date of Service: 05/19/21 Quality Stroke Does the patient have a stroke diagnosis?: No VTE Prior VTE?: No VTE Risk Level:: Medical - moderate - high VTE Device Contraindication: Treatment Not Indicated VTE Drug Contraindication: N/A - Med Ordered
[2021-05-19 11:28] LABS: Glucose, Whole Blood 77 mg/dL (60-115)
--- NOTE | 2021-05-19 14:45 | HO.PM.IMPN ---
Subjective Subjective Date of Service: 05/19/21 Interval History: Patient being followed for severe peripheral vascular disease and nonhealing right first toe ulcer, patient awake but not responding to questions Review of Systems Unable to obtain detailed review of system due to underlying dementia Physical Exam Vital Signs: Vital Signs: Last Vital Signs Temp 98.0 F 05/19/21 07:40 Pulse 71 05/19/21 07:40 Resp 16 05/19/21 07:40 BP 198/79 H 05/19/21 07:40 Pulse Ox 99 05/19/21 07:40 Body Mass Index 27.4 General resting comfortably in no acute distress. Neck supple no JVD. CVS regular rate rhythm, Respiratory lungs clear to auscultation, no respiratory distress, no wheeze, no rhonchi, no use of accessory muscles. Gastrointestinal abdomen soft, nontender, bowel sounds audible, no guarding , no rigidity. Extremities right big toe necrotic wound Neuro left hemiplegia with contraction deformity Objective Data Active Medications Acetaminophen (Acetaminophen 325 Mg Tablet) 650 mg PO Q6H PRN PRN Reason: fever/pain Last Admin: 05/16/21 02:37 Dose: 650 mg Documented by: JEVON Artificial Tears (Artificial Tears 15 Ml Drops) 1 drop EYE-BOTH BID [facility] Last Admin: 05/19/21 08:52 Dose: 1 drop Documented by: EDDI Aspirin (Aspirin Enteric Coated 81 Mg Tablet.) 81 mg PO DAILY [facility] Last Admin: 05/19/21 08:51 Dose: 81 mg Documented by: EDDI Atorvastatin Calcium (Atorvastatin Calcium 40 Mg Tablet) 40 mg PO BEDTIME [facility] Last Admin: 05/18/21 22:07 Dose: 40 mg Documented by: ISABELRISHossein Bisacodyl (Bisacodyl 5 Mg Tablet.) 10 mg PO DAILY PRN PRN Reason: Constipation Bisacodyl (Bisacodyl 10 Mg Supp.Rect) 10 mg [place] DAILY PRN PRN Reason: Constipation Calcium Carbonate (Calcium Carbonate 750 Mg Tab.Chew) 750 mg PO QID PRN PRN Reason: Heartburn Dextrose (Dextrose 50 % 25 Gm/50 Ml Vial) 25 gm IVPUSH Q15M PRN; Protocol PRN Reason: per Hypoglycemia Standing Ord. Dorzolamide/Timolol (Dorzolamide/Timolo 2.23%/0.68% 10 Ml Drbtl) 1 drop EYE-BOTH BID [facility] Last Admin: 05/19/21 08:52 Dose: 1 drop Documented by: EDDI Enoxaparin Sodium (Enoxaparin Sodium 40 Mg/0.4 Ml Syringe) 40 mg SUBCUT Q24H [facility] Last Admin: 05/18/21 18:10 Dose: 40 mg Documented by: MONSERRAT Glucose (Glucose Gel 15 Gm Gel..Gram.) 15 gm PO Q15M PRN; Protocol PRN Reason: per Hypoglycemia Standing Ord. Piperacillin Sod/Tazobactam (Sod 3.375 gm/ Sodium Chloride) 50 mls @ 100 mls/hr IV Q6H [facility] Last Infusion: 05/19/21 09:39 Dose: 0 mls/hr Documented by: EDDI Vancomycin HCl 1,000 mg/ (Sodium Chloride) 270 mls @ 270 mls/hr IV Q24H [facility] Last Infusion: 05/18/21 17:54 Dose: 0 mls/hr Documented by: MONSERRAT Insulin Human Lispro (Insulin Lispro 100 Unit/Ml 3 Ml Vial) 0 unit SUBCUT QIDACHS [facility]; Protocol Last Admin: 05/19/21 11:30 Dose: Not Given Documented by: EDDI Non-Admin Reason: No Insulin Coverage Latanoprost (Latanoprost 0.005 % Ophth Susie 2.5 Ml Drops) 1 drop EYE-BOTH DAILY [facility] Last Admin: 05/19/21 08:52 Dose: 1 drop Documented by: EDDI Magnesium Hydroxide (Milk Of Magnesia 30 Ml Oral.Susp) 30 ml PO BEDTIME PRN PRN Reason: Constipation Metoprolol Tartrate (Metoprolol Tartrate 50 Mg Tablet) 50 mg PO BID [facility]; Protocol Last Admin: 05/19/21 08:51 Dose: 50 mg Documented by: EDDI Mirtazapine (Mirtazapine 15 Mg Tablet) 15 mg PO BEDTIME [facility] Last Admin: 05/18/21 22:07 Dose: 15 mg Documented by: ODRISHossein Omeprazole (Omeprazole 20 Mg Capsule.Dr) 20 mg PO DAILY@0630 [facility] Last Admin: 05/19/21 06:03 Dose: Not Given Documented by: ALEXA Non-Admin Reason: Patient Refused Ondansetron HCl (Ondansetron Odt 4 Mg Tab.Rapdis) 4 mg TRANSLINGU Q6H PRN PRN Reason: Nausea And Vomiting Pharmacy Consult (Consult Rx Perform Med Rec) 1 each MISCELLANE ONCE PRN PRN Reason: Consult order Pharmacy Consult (Consult Rx Vancomycin Dosing) 1 each MISCELLANE DAILY PRN PRN Reason: Consult order Senna (Sennosides 8.6 Mg Tablet) 8.6 mg PO DAILY [facility] Last Admin: 05/19/21 08:51 Dose: 8.6 mg Documented by: EDDI Senna (Sennosides 8.6 Mg Tablet) 17.2 mg PO BEDTIME PRN PRN Reason: Constipation Sodium Chloride (0.9 % Sodium Chloride Flush 3 Ml Syringe) 3 ml IVFLUSH QSHIFT [facility] Last Admin: 05/19/21 08:53 Dose: 3 ml Documented by: EDDI Tamsulosin HCl (Tamsulosin Hcl 0.4 Mg Capsule) 0.4 mg PO BEDTIME [facility] Last Admin: 05/18/21 22:07 Dose: 0.4 mg Documented by: ALEXA Labs CBC & Chem 7: 05/19/21 05:58 05/19/21 05:58 Labs: Laboratory Results - last 24 hr 05/18/21 05/18/21 05/19/21 16:31 20:00 05:58 MCV 88.1 MCH 27.8 MCHC 31.5 RDW 13.0 Plt Count 232 MPV 8.8 L Absolute Nucleated RBC 0.000 Nucleated RBC % (auto) 0.0 Anion Gap Estim Creat Clear Calc Estimated GFR POC Glucose 125 H 113 Fasting Glucose Calcium 05/19/21 05/19/21 05/19/21 05:58 07:01 11:15 MCV MCH MCHC RDW Plt Count MPV Absolute Nucleated RBC Nucleated RBC % (auto) Anion Gap 9 L Estim Creat Clear Calc 70.1 Estimated GFR > 60 POC Glucose 86 77 Fasting Glucose 88 Calcium 8.1 L Assessment and Plan (1) PAD (peripheral artery disease): Status: Acute (2) Vascular dementia: Status: Acute (3) Acute osteomyelitis of phalanx of right foot: Status: Acute (4) HLD (hyperlipidemia): Status: Acute (5) HTN (hypertension): Status: Acute (6) Diabetes: Status: Acute Assessment and Plan: 75F presented with necrotic right 1st toe right first toe necrosis with OM due to PVD, DM continue iv vanco and zosyn day 6 vanco trough 15.7, bmp stable renal function. Dr. Verduzco recommended AKA, however, son/HCP, Yeison, unsure if he would like to pursue surgery he will discuss it with family and call us back regarding the plan If no surgery is planned patient will be discharged back to rehab facility on conservative management arterial vascular US showed severe bilateral stenosis Continue local care - wound paint/betadine kerlex daily Acute on chronic anemia likely inflammatory, monitor, would transfuse for goal >7 Current hb stable between 7-8 DM with hypoglycemia Hypoglycemia resolved Blood sugars stable continue insulin sliding scale, monitor POC Hba1c - 6.4 history of CVA with left hemiplegia, contraction deformity and vascular dementia Continue asa, statin dvt prohpylaxis - lovenox DNR/DNI Quality Stroke Does the patient have a stroke diagnosis?: No VTE Prior VTE?: No VTE Risk Level:: Medical - moderate - high VTE Device Contraindication: Treatment Not Indicated VTE Drug Contraindication: N/A - Med Ordered
[2021-05-19 15:34] VITALS: BP 195/76; PULSE 71; RESP 16; TEMP 36.2; O2SAT 100
[2021-05-19 16:43] LABS: Glucose, Whole Blood 127 mg/dL (60-115)
[2021-05-19] MEDS: vancomycin HCL 1,000 MG in 0.9 % Sodium Chloride 250 ML 270 MG IV (16:58)
[2021-05-19] MEDS: Enoxaparin Sodium 40 MG/0.4 ML SYRINGE SUBCUT (17:03)
[2021-05-19 19:48] VITALS: BP 147/79; PULSE 85; RESP 16; TEMP 37.7; O2SAT 100
[2021-05-19 20:08] LABS: Glucose, Whole Blood 185 mg/dL (60-115)
[2021-05-19] MEDS: Insulin Lispro 100 UNIT/ML 3 ML VIAL SUBCUT (21:29)
[2021-05-19 21:30] VITALS: BP 152/69; PULSE 75
[2021-05-19] MEDS: Atorvastatin Calcium 40 MG TABLET PO (21:30)
[2021-05-19] MEDS: Tamsulosin HCL 0.4 MG CAPSULE PO (21:30)
[2021-05-19] MEDS: Mirtazapine 15 MG TABLET PO (21:30)
[2021-05-20 00:06] VITALS: BP 149/68; PULSE 72; RESP 16; TEMP 36.6; O2SAT 98
[2021-05-20] MEDS: Piperacillin Sodium/Tazobactam 3.375 GM in 0.9 % Sodium Chloride 50 ML IV ×4 (02:59→21:33)
[2021-05-20] MEDS: Omeprazole 20 MG CAPSULE.DR PO (05:50)
[2021-05-20 07:12] VITALS: BP 151/70; PULSE 63; RESP 18; TEMP 36.4; O2SAT 100
[2021-05-20 07:46] LABS: Glucose, Whole Blood 150 mg/dL (60-115)
[2021-05-20 08:41] LABS: Hematocrit 25.1 % (37-47); Hemoglobin 7.7 g/dl (12.0-16.0)
[2021-05-20 09:40] LABS: Creatinine Clr Calc Pharmacy 63.6; Estimated Glomerular Filt Rate > 60
[2021-05-20] MEDS: 0.9 % Sodium Chloride Flush 3 ML SYRINGE IVFLUSH ×2 (09:47→21:34)
[2021-05-20] MEDS: Aspirin Enteric Coated 81 MG TABLET.DR PO (09:47)
[2021-05-20] MEDS: Metoprolol Tartrate 50 MG TABLET PO ×2 (09:47→21:32)
[2021-05-20] MEDS: Artificial Tears 15 ML DROPS 1 DROP EYE-BOTH ×2 (09:47→21:33)
[2021-05-20] MEDS: Sennosides 8.6 MG TABLET PO (09:47)
[2021-05-20] MEDS: Latanoprost 0.005 % Ophth Sol 2.5 ML DROPS 1 DROP EYE-BOTH (09:47)
[2021-05-20] MEDS: Dorzolamide/Timolo 2.23%/0.68% 10 ML DRBTL 1 DROP EYE-BOTH ×2 (09:47→21:33)
[2021-05-20 11:16] LABS: Glucose, Whole Blood 185 mg/dL (60-115)
[2021-05-20] MEDS: Insulin Lispro 100 UNIT/ML 3 ML VIAL SUBCUT ×2 (11:34→17:04)
--- NOTE | 2021-05-20 14:20 | HO.PM.IMPN ---
Subjective Subjective Date of Service: 05/20/21 Interval History: being followed for severe peripheral vascular disease and nonhealing right first toe ulce, patient awake alert answering questions appropriately want to know when she returned back, complaining of left leg pain, no other acute issues overnight. Review of Systems Unable to obtain detailed review of system due to underlying dementia Physical Exam Vital Signs: Vital Signs: Last Vital Signs Temp 97.6 F 05/20/21 07:12 Pulse 63 05/20/21 07:12 Resp 18 05/20/21 07:12 BP 151/70 H 05/20/21 07:12 Pulse Ox 100 05/20/21 07:12 Body Mass Index 27.4 General resting comfortably in no acute distress.? Neck? supple no JVD. CVS? regular rate rhythm, Respiratory lungs clear to auscultation, no respiratory distress, no wheeze, no rhonchi, no use of accessory muscles. Gastrointestinal abdomen soft, nontender, bowel sounds audible, no guarding , no rigidity. Extremities right big toe necrotic wound, no drainage, dressing in place, left lower extremity, no redness, no swelling, no rash. Neuro left hemiplegia with contraction deformity, speech clear Objective Data Active Medications Acetaminophen (Acetaminophen 325 Mg Tablet) 650 mg PO Q6H PRN PRN Reason: fever/pain Last Admin: 05/16/21 02:37 Dose: 650 mg Documented by: JEVON Artificial Tears (Artificial Tears 15 Ml Drops) 1 drop EYE-BOTH BID [facility] Last Admin: 05/20/21 09:47 Dose: 1 drop Documented by: EDDI Aspirin (Aspirin Enteric Coated 81 Mg Tablet.) 81 mg PO DAILY [facility] Last Admin: 05/20/21 09:47 Dose: 81 mg Documented by: EDDI Atorvastatin Calcium (Atorvastatin Calcium 40 Mg Tablet) 40 mg PO BEDTIME [facility] Last Admin: 05/19/21 21:30 Dose: 40 mg Documented by: ISABELRISHossein Bisacodyl (Bisacodyl 5 Mg Tablet.) 10 mg PO DAILY PRN PRN Reason: Constipation Bisacodyl (Bisacodyl 10 Mg Supp.Rect) 10 mg [place] DAILY PRN PRN Reason: Constipation Calcium Carbonate (Calcium Carbonate 750 Mg Tab.Chew) 750 mg PO QID PRN PRN Reason: Heartburn Dextrose (Dextrose 50 % 25 Gm/50 Ml Vial) 25 gm IVPUSH Q15M PRN; Protocol PRN Reason: per Hypoglycemia Standing Ord. Dorzolamide/Timolol (Dorzolamide/Timolo 2.23%/0.68% 10 Ml Drbtl) 1 drop EYE-BOTH BID [facility] Last Admin: 05/20/21 09:47 Dose: 1 drop Documented by: EDDI Enoxaparin Sodium (Enoxaparin Sodium 40 Mg/0.4 Ml Syringe) 40 mg SUBCUT Q24H [facility] Last Admin: 05/19/21 17:03 Dose: 40 mg Documented by: EDDI Glucose (Glucose Gel 15 Gm Gel..Gram.) 15 gm PO Q15M PRN; Protocol PRN Reason: per Hypoglycemia Standing Ord. Piperacillin Sod/Tazobactam (Sod 3.375 gm/ Sodium Chloride) 50 mls @ 100 mls/hr IV Q6H [facility] Last Infusion: 05/20/21 10:47 Dose: 100 mls/hr Documented by: EDDI Vancomycin HCl 1,000 mg/ (Sodium Chloride) 270 mls @ 270 mls/hr IV Q24H [facility] Last Infusion: 05/19/21 18:03 Dose: 0 mls/hr Documented by: EDDI Insulin Human Lispro (Insulin Lispro 100 Unit/Ml 3 Ml Vial) 0 unit SUBCUT QIDACHS [facility]; Protocol Last Admin: 05/20/21 11:34 Dose: 2 unit Documented by: EDDI Latanoprost (Latanoprost 0.005 % Ophth Susie 2.5 Ml Drops) 1 drop EYE-BOTH DAILY [facility] Last Admin: 05/20/21 09:47 Dose: 1 drop Documented by: EDDI Magnesium Hydroxide (Milk Of Magnesia 30 Ml Oral.Susp) 30 ml PO BEDTIME PRN PRN Reason: Constipation Metoprolol Tartrate (Metoprolol Tartrate 50 Mg Tablet) 50 mg PO BID [facility]; Protocol Last Admin: 05/20/21 09:47 Dose: 50 mg Documented by: EDDI Mirtazapine (Mirtazapine 15 Mg Tablet) 15 mg PO BEDTIME [facility] Last Admin: 05/19/21 21:30 Dose: 15 mg Documented by: ODRISM Omeprazole (Omeprazole 20 Mg Capsule.Dr) 20 mg PO DAILY@0630 [facility] Last Admin: 05/20/21 05:50 Dose: 20 mg Documented by: ALEXA Ondansetron HCl (Ondansetron Odt 4 Mg Tab.Rapdis) 4 mg TRANSLINGU Q6H PRN PRN Reason: Nausea And Vomiting Pharmacy Consult (Consult Rx Perform Med Rec) 1 each MISCELLANE ONCE PRN PRN Reason: Consult order Pharmacy Consult (Consult Rx Vancomycin Dosing) 1 each MISCELLANE DAILY PRN PRN Reason: Consult order Senna (Sennosides 8.6 Mg Tablet) 8.6 mg PO DAILY [facility] Last Admin: 05/20/21 09:47 Dose: 8.6 mg Documented by: EDDI Senna (Sennosides 8.6 Mg Tablet) 17.2 mg PO BEDTIME PRN PRN Reason: Constipation Sodium Chloride (0.9 % Sodium Chloride Flush 3 Ml Syringe) 3 ml IVFLUSH QSHIFT [facility] Last Admin: 05/20/21 09:47 Dose: 3 ml Documented by: EDDI Tamsulosin HCl (Tamsulosin Hcl 0.4 Mg Capsule) 0.4 mg PO BEDTIME [facility] Last Admin: 05/19/21 21:30 Dose: 0.4 mg Documented by: ALEXA Labs CBC & Chem 7: 05/20/21 08:22 05/20/21 08:22 Labs: Laboratory Results - last 24 hr 05/19/21 05/19/21 05/20/21 16:27 20:04 07:10 Estim Creat Clear Calc Estimated GFR POC Glucose 127 H 185 H 150 H 05/20/21 05/20/21 08:22 11:10 Estim Creat Clear Calc 63.6 Estimated GFR > 60 POC Glucose 185 H Microbiology Microbiology Results: Microbiology 05/14/21 14:43 Blood Culture - Final Blood - Venous No growth after 5 days. 05/14/21 14:43 Blood Culture - Final Blood - Venous No growth after 5 days. Assessment and Plan (1) PAD (peripheral artery disease): Status: Acute (2) Vascular dementia: Status: Acute (3) Acute osteomyelitis of phalanx of right foot: Status: Acute (4) HLD (hyperlipidemia): Status: Acute (5) HTN (hypertension): Status: Acute (6) Diabetes: Status: Acute Assessment and Plan: 75F presented with necrotic right 1st toe right first toe necrosis with OM due to PVD, DM No complain of pain, no overnight fever chills On iv vanco and? zosyn day 7 vanco trough 15.7, stable renal function. Dr. Verduzco recommended [facility], however, son/HCP, Yeison, unsure if he would like to pursue surgery he will discuss it with family and call us back regarding the plan, call son this morning to discuss the family decision , left message on voicemail Spoke with Dr. Verduzco this morning he recommend to discharge patient back to [facility] and he will arrange for outpatient surgery if family planned Will obtain ID consultation regarding choice and duration of antibiotic t Continue local care - wound paint/betadine kerlex daily Acute on chronic anemia likely inflammatory, monitor, would transfuse for goal >7 Current hb improved to 7.7 DM with hypoglycemia Hypoglycemia resolved Blood sugars stable continue insulin sliding scale, monitor POC Hba1c - 6.4 history of CVA with left hemiplegia, contraction deformity and vascular dementia Continue asa, statin dvt prohpylaxis - lovenox DNR/DNI Quality Stroke Does the patient have a stroke diagnosis?: No VTE Prior VTE?: No VTE Risk Level:: Medical - moderate - high VTE Device Contraindication: Treatment Not Indicated VTE Drug Contraindication: N/A - Med Ordered
[2021-05-20 14:44] LABS: Vancomycin Trough 18.5 mcg/mL (10.0-20.0)
[2021-05-20 15:49] VITALS: BP 114/51; PULSE 69; RESP 17; TEMP 37.3; O2SAT 100
[2021-05-20] MEDS: vancomycin HCL 1,000 MG in 0.9 % Sodium Chloride 250 ML 270 MG IV (15:51)
[2021-05-20 16:43] LABS: Glucose, Whole Blood 184 mg/dL (60-115)
[2021-05-20] MEDS: Enoxaparin Sodium 40 MG/0.4 ML SYRINGE SUBCUT (17:04)
[2021-05-20 20:38] LABS: Glucose, Whole Blood 139 mg/dL (60-115)
[2021-05-20 21:32] VITALS: BP 116/54; PULSE 69
[2021-05-20] MEDS: Tamsulosin HCL 0.4 MG CAPSULE PO (21:32)
[2021-05-20] MEDS: Atorvastatin Calcium 40 MG TABLET PO (21:33)
[2021-05-20] MEDS: Mirtazapine 15 MG TABLET PO (21:33)
--- NOTE | 2021-05-20 22:11 | W.PM.IDCN ---
History of Present Illness Data of Consult Service Date: 05/20/21 Requesting physician: Prabhjot Og Primary Care Provider: Carri Fleming MD HPI Reason for consult: right toe infection She presents with discomfort right great toe. She has had this two to three days She has no fever or chills Review of Systems Review of Systems: Yes all other systems are reviewed and are negative PMF Past Medical History Medical History CVA (cerebral vascular accident) Diabetes Femoral artery occlusion Glaucoma HLD (hyperlipidemia) HTN (hypertension) Superficial femoral artery occlusion Vascular dementia Family History Family History Mother CVA (cerebral vascular accident) Family history: reviewed and not pertinent Social History Social History Household Members: Other Housing: Assisted Do you presently have visiting nurse or other home services: No (pt lives in nursing facility) Alcohol intake: never Patient Tobacco Use Status: Never used Tobacco Use of substances other than those prescribed or required for medical reasons: No Currently Displaying Signs/Symptoms of Drug Intoxication Withdrawal: No Have you been hit, kicked, punched, or otherwise hurt by someone within the past year? If so, by whom?: No Do you feel safe in your current relationship?: No Current Relationship Is there a partner from a previous relationship who is making you feel unsafe now?: No Are you made to feel afraid or neglected: No Advance Directives: No Advance Directives Information Provided: No Do you have thoughts of harming others: None Do you have a plan to hurt others: No Plan Recently lost weight without trying: Unsure service: No Current occupational status: retired and disabled Meds Allergies Allergy/AdvReac Type Severity Reaction Status Date / Time oxycodone [From PERCOCET] Allergy Mild HALLUCINATI Verified 05/15/21 16:06 ONS Active Medications: Current Medications Acetaminophen (Acetaminophen 325 Mg Tablet) 650 mg PO Q6H PRN PRN Reason: fever/pain Last Admin: 05/16/21 02:37 Dose: 650 mg Documented by: Artificial Tears (Artificial Tears 15 Ml Drops) 1 drop EYE-BOTH BID [place] Last Admin: 05/20/21 21:33 Dose: 1 drop Documented by: Aspirin (Aspirin Enteric Coated 81 Mg Tablet.Dr) 81 mg PO DAILY [facility] Last Admin: 05/20/21 09:47 Dose: 81 mg Documented by: Atorvastatin Calcium (Atorvastatin Calcium 40 Mg Tablet) 40 mg PO BEDTIME [facility] Last Admin: 05/20/21 21:33 Dose: 40 mg Documented by: Bisacodyl (Bisacodyl 5 Mg Tablet.Dr) 10 mg PO DAILY PRN PRN Reason: Constipation Bisacodyl (Bisacodyl 10 Mg Supp.Rect) 10 mg ME DAILY PRN PRN Reason: Constipation Calcium Carbonate (Calcium Carbonate 750 Mg Tab.Chew) 750 mg PO QID PRN PRN Reason: Heartburn Dextrose (Dextrose 50 % 25 Gm/50 Ml Vial) 25 gm IVPUSH Q15M PRN; Protocol PRN Reason: per Hypoglycemia Standing Ord. Dorzolamide/Timolol (Dorzolamide/Timolo 2.23%/0.68% 10 Ml Drbtl) 1 drop EYE-BOTH BID [facility] Last Admin: 05/20/21 21:33 Dose: 1 drop Documented by: Enoxaparin Sodium (Enoxaparin Sodium 40 Mg/0.4 Ml Syringe) 40 mg SUBCUT Q24H [facility] Last Admin: 05/20/21 17:04 Dose: 40 mg Documented by: Glucose (Glucose Gel 15 Gm Gel..Gram.) 15 gm PO Q15M PRN; Protocol PRN Reason: per Hypoglycemia Standing Ord. Piperacillin Sod/Tazobactam (Sod 3.375 gm/ Sodium Chloride) 50 mls @ 100 mls/hr IV Q6H [facility] Last Admin: 05/20/21 21:33 Dose: 100 mls/hr Documented by: Vancomycin HCl 1,000 mg/ (Sodium Chloride) 270 mls @ 270 mls/hr IV Q24H [facility] Last Infusion: 05/20/21 16:57 Dose: Infused Documented by: Insulin Human Lispro (Insulin Lispro 100 Unit/Ml 3 Ml Vial) 0 unit SUBCUT QIDACHS [facility]; Protocol Last Admin: 05/20/21 21:33 Dose: Not Given Documented by: Latanoprost (Latanoprost 0.005 % Ophth Susie 2.5 Ml Drops) 1 drop EYE-BOTH DAILY [facility] Last Admin: 05/20/21 09:47 Dose: 1 drop Documented by: Magnesium Hydroxide (Milk Of Magnesia 30 Ml Oral.Susp) 30 ml PO BEDTIME PRN PRN Reason: Constipation Metoprolol Tartrate (Metoprolol Tartrate 50 Mg Tablet) 50 mg PO BID [facility]; Protocol Last Admin: 05/20/21 21:32 Dose: 50 mg Documented by: Mirtazapine (Mirtazapine 15 Mg Tablet) 15 mg PO BEDTIME [facility] Last Admin: 05/20/21 21:33 Dose: 15 mg Documented by: Omeprazole (Omeprazole 20 Mg Capsule.Dr) 20 mg PO DAILY@0630 [facility] Last Admin: 05/20/21 05:50 Dose: 20 mg Documented by: Ondansetron HCl (Ondansetron Odt 4 Mg Tab.Rapdis) 4 mg TRANSLINGU Q6H PRN PRN Reason: Nausea And Vomiting Pharmacy Consult (Consult Rx Perform Med Rec) 1 each MISCELLANE ONCE PRN PRN Reason: Consult order Pharmacy Consult (Consult Rx Vancomycin Dosing) 1 each MISCELLANE DAILY PRN PRN Reason: Consult order Senna (Sennosides 8.6 Mg Tablet) 8.6 mg PO DAILY [facility] Last Admin: 05/20/21 09:47 Dose: 8.6 mg Documented by: Senna (Sennosides 8.6 Mg Tablet) 17.2 mg PO BEDTIME PRN PRN Reason: Constipation Sodium Chloride (0.9 % Sodium Chloride Flush 3 Ml Syringe) 3 ml IVFLUSH QSHIFT [facility] Last Admin: 05/20/21 21:34 Dose: 3 ml Documented by: Tamsulosin HCl (Tamsulosin Hcl 0.4 Mg Capsule) 0.4 mg PO BEDTIME [facility] Last Admin: 05/20/21 21:32 Dose: 0.4 mg Documented by: Home Medications Medication Instructions Recorded Confirmed Last Taken Type acetaminophen 325 mg tablet 650 mg PO Q6H PRN 05/14/21 05/14/21 Unknown History aspirin 81 mg tablet,delayed 81 mg PO DAILY 05/14/21 05/14/21 Unknown History release bisacodyl 10 mg rectal suppository 10 mg ME DAILY PRN 05/14/21 05/14/21 Unknown History bisacodyl 5 mg tablet 10 mg PO DAILY PRN 05/14/21 05/14/21 Unknown History calcium carbonate 500 mg calcium 1,000 mg PO QID PRN 05/14/21 05/14/21 Unknown History (1,250 mg) chewable tablet dorzolamide 22.3 mg-timolol 6.8 1 drp OPHTHALMIC (EYE) BID 05/14/21 05/14/21 Unknown History mg/mL eye drops insulin detemir U-100 100 unit/mL 14 unit SUBCUT DAILY 05/14/21 05/14/21 Unknown History (3 mL) subcutaneous pen (Levemir FlexTouch U-100 Insulin) latanoprost 0.005 % eye drops 1 drp OPHTHALMIC (EYE) DAILY 05/14/21 05/14/21 Unknown History magnesium hydroxide 400 mg/5 mL 30 ml PO BEDTIME PRN 05/14/21 05/14/21 Unknown History oral suspension (Milk of MagnBeem) metoprolol tartrate 50 mg tablet 50 mg PO BID 05/14/21 05/14/21 Unknown History mirtazapine 15 mg tablet 15 mg PO BEDTIME 05/14/21 05/14/21 Unknown History omeprazole 20 mg capsule,delayed 20 mg PO DAILY@0630 05/14/21 05/14/21 Unknown History release ondansetron 4 mg disintegrating 4 mg PO Q6H PRN 05/14/21 05/14/21 Unknown History tablet peg 400-propylene glycol 0.4 %-0.3 1 drp OPHTHALMIC (EYE) BID 05/14/21 05/14/21 Unknown History % eye drops (Systane Ultra) sennosides 8.6 mg tablet (senna) 8.6 mg PO DAILY 05/14/21 05/14/21 Unknown History sennosides 8.6 mg tablet (senna) 17.2 mg PO BEDTIME PRN 05/14/21 05/14/21 Unknown History tamsulosin 0.4 mg capsule 0.4 mg PO BEDTIME 05/14/21 05/14/21 Unknown History Physical Exam Vital Signs: Vital Signs: Last Vital Signs Temp 99.1 F 05/20/21 15:49 Pulse 69 05/20/21 21:32 Resp 17 05/20/21 15:49 BP 116/54 L 05/20/21 21:32 Pulse Ox 100 05/20/21 15:49 Body Mass Index 27.4 Const: General: cooperative HENMT: Head: Yes normal to inspection Mouth: Normal oral and palatal mucosa present Eyes: General: appearance normal, both eyes and all related structures Cardio: Rate: regular rate Rhythm: regular rhythm GI: Palpation (GI): Soft to palpation and nontender Extrem: Other: right great toe, necrotic and foul smelling Results Labs CBC & Chem 7: 05/20/21 08:22 05/20/21 08:22 Labs: Short CBC 05/20/21 Range/Units 08:22 Hgb 7.7 L (12.0-16.0) g/dl Hct 25.1 L (37-47) % BMP 05/20/21 08:22 Creatinine 0.75 Microbiology Microbiology Results: Microbiology 05/14/21 14:43 Blood - Venous Blood Culture - Final No growth after 5 days. 05/14/21 14:43 Blood - Venous Blood Culture - Final No growth after 5 days. Assessment and Plan (1) Acute osteomyelitis of phalanx of right foot: Status: Acute She has probable osteomyelitis and incurable necrotic area She has possible gram negative,gram positive Suggest Would continue Vancomycin and Zosyn Send home with po Augmentin and Doxycycline while area demarcates IV antibiotics possible also with Ertapenem for six weeks but think progressed too far. (2) Vascular dementia: Status: Acute
[2021-05-21] VITALS: BP 152/74; PULSE 85; RESP 16; TEMP 36.8; O2SAT 100
[2021-05-21] MEDS: Piperacillin Sodium/Tazobactam 3.375 GM in 0.9 % Sodium Chloride 50 ML IV ×2 (03:38→09:05)
[2021-05-21 05:42] LABS: Creatinine Clr Calc Pharmacy 60.4; Estimated Glomerular Filt Rate > 60
[2021-05-21 07:14] VITALS: PULSE 73; RESP 18; TEMP 36.1; O2SAT 100
[2021-05-21 07:39] LABS: Glucose, Whole Blood 113 mg/dL (60-115)
[2021-05-21 09:04] VITALS: BP 152/74; PULSE 73
[2021-05-21] MEDS: Metoprolol Tartrate 50 MG TABLET PO (09:04)
[2021-05-21] MEDS: Aspirin Enteric Coated 81 MG TABLET.DR PO (09:04)
[2021-05-21] MEDS: Sennosides 8.6 MG TABLET PO (09:04)
[2021-05-21] MEDS: 0.9 % Sodium Chloride Flush 3 ML SYRINGE IVFLUSH (09:05)
[2021-05-21] MEDS: Latanoprost 0.005 % Ophth Sol 2.5 ML DROPS 1 DROP EYE-BOTH (09:06)
[2021-05-21] MEDS: Dorzolamide/Timolo 2.23%/0.68% 10 ML DRBTL 1 DROP EYE-BOTH (09:06)
[2021-05-21] MEDS: Artificial Tears 15 ML DROPS 1 DROP EYE-BOTH (09:08)
--- NOTE | 2021-05-21 11:02 | PM.DS ---
DS: Providers Provider Date of Service: 05/21/21 Date of admission: 05/14/21 16:37 Primary care physician: Carri Fleming MD Consults: 05/14/21 16:21 Consult to Vascular Surgery Routine Consulting Provider: Shay Verduzco Reason for consultation: right first toe infected ulcer 05/20/21 10:40 Consult to Infectious Diseases Stat Consulting Provider: Yandy Bustos Reason for consultation: osteo rt toe/pvd Has provider been notified: No DS: Diagnosis Discharge Diagnosis (1) Acute osteomyelitis of phalanx of right foot: Status: Acute (2) Vascular dementia: Status: Acute DS: Summary Hospital Course Hospital Course: History of presenting illness Date of Service: 05/14/21 Chief Complaint: infected right 1st toe 75F sent from detention to wound clinic and then to ED for right first toe infection.? Patient has her healthcare proxy invoked due to vascular dementia.? She has a history of significant CVA with left severe hemiparesis and multiple other TIAs, peripheral vascular disease with stent placement, diabetes, hypertension.? Healthcare proxy was unclear duration of symptoms, but appears to be having on on for some time and was prescribed Augmentin doxycycline at detention which does not appear to have improved.? Wound clinic found toe to be necrotic and sent patient to the ED.? patient herself connective proper history denies any pain, shortness of breath, fever, chills.? Patient has no signs of sepsis.? X-rays suspicious for early osteomyelitis. Past medical history CVA (cerebral vascular accident) Diabetes Femoral artery occlusion Glaucoma HLD (hyperlipidemia) HTN (hypertension) Superficial femoral artery occlusion Vascular dementia Hospital course 75F presented with necrotic right 1st toe with acute osteomyelitis related to peripheral vascular disease and diabetes, patient offered no complaints of pain she has had no further fever chills, she was treated with IV vancomycin and Zosyn and was followed by vascular surgery Dr. Verduzco he recommended AKA however patient's son /HCP, Yeison, unsure if he would like to pursue surgery therefore he decided to have a family meeting prior to any surgical intervention, since no decision made by healthcare proxy patient is being discharged to rehab facility on by mouth Augmentin and doxycycline for 2 weeks, if family opted for surgery recommend follow-up with Dr. Verduzco as outpatient, for scheduling the procedure, otherwise recommend hospice consult ,Continue local care - wound paint/betadine kerlex daily. Acute on chronic anemia likely inflammatory, patient did not require blood transfusion DM with hypoglycemia that has now resolved, dose of insulin reduced, hemoglobin A1c 6.4 monitor blood sugar closely continue diabetic diet history of CVA with left hemiplegia, contraction deformity and vascular dementia Continue asa, statin Time Spent with Patient Time attestation: Total time spent providing and/or coordinating discharge services: Discharge coordination time: Greater than 30 minutes Quality: Stroke Does the patient have a stroke diagnosis?: No Physical Exam Vital Signs: Vital Signs: Last Vital Signs Temp 97 F 05/21/21 07:14 Pulse 73 05/21/21 09:04 Resp 18 05/21/21 07:14 BP 152/74 H 05/21/21 09:04 Pulse Ox 100 05/21/21 07:14 Body Mass Index 27.4 General resting co mfortably in no ac [place] distress.? Nec k? supple no JVD. CVS? regular rate rhythm, Respirator y lungs clear to a uscultation, no re spiratory distress , no wheeze, no rh onchi, no use of a ccessory muscles. Gastrointestinal a bdomen soft, nonte nder, bowel sounds audible, no guard ing , no rigidity. Extremities right big toe necrotic wound, no drainage , dressing in plac e, left lower extr emity, no redness, no swelling, no r bri. Neuro left he miplegia with cont raction deformity, speech clear DS: Data Data Completed and Pending Labs on day of discharge: Laboratory Results - last 24 hr 05/20/21 05/20/21 05/20/21 11:10 14:04 16:40 Creatinine Estim Creat Clear Calc Estimated GFR POC Glucose 185 H 184 H Vancomycin Trough 18.5 05/20/21 05/21/21 05/21/21 20:34 05:14 07:17 Creatinine 0.79 Estim Creat Clear Calc 60.4 Estimated GFR > 60 POC Glucose 139 H 113 Vancomycin Trough Discharge Plan Discharge Patient Disposition: er SNF Discharge Diagnosis: Right 1st toe necrosis with acute osteomyelitis Peripheral vascular disease Diabetes with hypoglycemia Acute on chronic anemia Referrals: Carri Fleming MD [Primary Care Provider] - 1 Week Discharge Medications: New doxycycline hyclate 100 mg tablet 100 mg PO BID Qty: 28 RF: 0 amoxicillin-pot clavulanate [Augmentin] 875-125 mg tablet 1 tab PO BID Qty: 28 RF: 0 Continued latanoprost 0.005 % Drops 1 drp OPHTHALMIC (EYE) DAILY RF: 0 sennosides [senna] 8.6 mg Tablet 17.2 mg PO BEDTIME PRN (Reason: Constipation) RF: 0 sennosides [senna] 8.6 mg Tablet 8.6 mg PO DAILY RF: 0 acetaminophen 325 mg Tablet 650 mg PO Q6H PRN (Reason: fever/pain) RF: 0 aspirin 81 mg Tablet,Delayed Release (Dr/Ec) 81 mg PO DAILY RF: 0 magnesium hydroxide [Milk of Magnesia] 400 mg/5 mL Suspension 30 ml PO BEDTIME PRN (Reason: Constipation) RF: 0 tamsulosin 0.4 mg Capsule 0.4 mg PO BEDTIME RF: 0 bisacodyl 10 mg Suppository 10 mg GA DAILY PRN (Reason: Constipation) RF: 0 metoprolol tartrate 50 mg Tablet 50 mg PO BID RF: 0 omeprazole 20 mg Capsule,Delayed Release(Dr/Ec) 20 mg PO DAILY@0630 RF: 0 dorzolamide-timolol 22.3-6.8 mg/mL Drops 1 drp OPHTHALMIC (EYE) BID RF: 0 calcium carbonate 500 mg calcium (1,250 mg) Tablet,Chewable 1,000 mg PO QID PRN (Reason: Heartburn) RF: 0 mirtazapine 15 mg Tablet 15 mg PO BEDTIME RF: 0 ondansetron 4 mg Tablet,Disintegrating 4 mg PO Q6H PRN (Reason: Nausea And Vomiting) RF: 0 bisacodyl 5 mg Tablet 10 mg PO DAILY PRN (Reason: Constipation) RF: 0 Systane Ultra 0.4-0.3 % Drops 1 drp OPHTHALMIC (EYE) BID RF: 0 Changed Levemir FlexTouch U-100 Insuln 100 unit/mL (3 mL) Insulin Pen 6 unit SUBCUT DAILY Qty: 0 RF: 0 Discharge Orders: Discharge Order (Routine); Ordered 05/21/21 Ordered By: Prabhjot Og Diet: diabetic diet Activity on Discharge: As tolerated Stand Alone Forms: Patient Portal Discharge page Care Plan Goals: Acute osteomyelitis right big toe, take by mouth antibiotic for 2 weeks, family needs to decide further care whether patient needs surgical intervention versus hospice care, Will need outpatient follow-up with vascular surgery if family opted for surgical intervention, otherwise hospice consult in facility Health Concerns: Continue all home medications as before dose of Lantus reduced due to episodes of hypoglycemia. Plan of Treatment: Outpatient follow-up with primary care physician and vascular surgery Dr. Verduzco in 1 month if patient's family decided for surgical intervention. Assessment: As above
[2021-05-21 11:35] LABS: Glucose, Whole Blood 205 mg/dL (60-115)
--- NOTE | 2021-05-21 11:48 | MHC.CM.PN ---
IMM 05/21/2021, PT RETURNING TO [facility] AT [facility] 12:30PM, ACTION FOR BLS TRANSPORT
[2021-05-21 12:21] LABS: COVID-19 Test Negative (Negative)
== END 2021-05-21 13:09 | disposition skilled nursing facility (03) | DRG 638 ==
LOC: HO.ED 15:59 → HO.EDOVER 17:02 → HO.S3 18:47
PROVIDERS: Admitting Provider Internal Medicine; Emergency Provider Internal Medicine; PCP Internal Medicine; Visit Provider Hospitalist
DX: E11.69 Type 2 diabetes mellitus with other specified complication (principal); E11.52 Type 2 diabetes mellitus with diabetic peripheral angiopathy with gangrene; I96 Gangrene, not elsewhere classified; M86.171 Other acute osteomyelitis, right ankle and foot; I69.854 Hemiplegia and hemiparesis following other cerebrovascular disease affecting left non-dominant side; I69.819 Unspecified symptoms and signs involving cognitive functions following other cerebrovascular disease; F01.50 Vascular dementia, unspecified severity, without behavioral disturbance, psychotic disturbance, mood disturbance, and anxiety; E11.649 Type 2 diabetes mellitus with hypoglycemia without coma; E78.5 Hyperlipidemia, unspecified; Z20.822 Contact with and (suspected) exposure to COVID-19; Z88.0 Allergy status to penicillin; Z79.4 Long term (current) use of insulin; Z79.82 Long term (current) use of aspirin; Z79.899 Other long term (current) drug therapy; Z66 Do not resuscitate
CPT/HCPCS: 36415; 73620; 80048; 80202; 82565; 82947; 83036; 83605; 85014; 85018; 85025; 85027; 85610; 85730; 87040; 87635; 93923; 93925; 96365; 96375; 99213; 99283; 99285; J1650; J2543; J3370

== ENCOUNTER 2021-08-20 08:59 | Outpatient (RCR) | payer MEDICARE, MEDICAID, SELFPAY | END 2021-08-31 13:34 | disposition home or self-care (01) | LOC: HO.WCC 08:59 | PROVIDERS: Visit Provider Physician Assistant | DX: E11.621 Type 2 diabetes mellitus with foot ulcer (principal); E11.52 Type 2 diabetes mellitus with diabetic peripheral angiopathy with gangrene; I70.262 Atherosclerosis of native arteries of extremities with gangrene, left leg; L97.529 Non-pressure chronic ulcer of other part of left foot with unspecified severity; E11.22 Type 2 diabetes mellitus with diabetic chronic kidney disease; N18.30 Chronic kidney disease, stage 3 unspecified; I69.954 Hemiplegia and hemiparesis following unspecified cerebrovascular disease affecting left non-dominant side | CPT/HCPCS: 99213 ==

== ENCOUNTER 2021-08-20 09:29 | Inpatient (IN) | payer MEDICARE, MEDICAID, SELFPAY ==
--- NOTE | ~2021-08-20 | XR_ITS ---
EXAMINATION: XR FOOT, RIGHT CLINICAL INFORMATION: Necrotic right toes. COMPARISON: Right foot x-rays of 05/14/2021. TECHNIQUE: AP and lateral views of the right foot are acquired. FINDINGS: There is severe diffuse osseous demineralization. Soft tissue gas is noted in the 1st and 2nd toes as well as 2nd interdigital space. The evaluation of underlying osseous structures, specifically 1st and 2nd second proximal phalanges and MTP joints region is limited. The findings are new compared to previous x-ray of 05/14/2021. There appears to be at least partial destruction of the proximal end of the 2nd proximal phalanx and metatarsal head. Possibility of partial destruction of the 1st proximal phalanx cannot be excluded. XR/XR foot RT min 3V IMPRESSION: Severe osteopenia. Multiple air foci in the soft tissues of the distal foot at 1st and 2nd toes, greater over the plantar aspect limits the evaluation of underlying osseous structures. Increased destruction of the base of the 5th proximal phalanx along with destruction is suspected. Some destruction of the 1st metatarsal head and 1st proximal phalanx cannot be completely excluded. Findings in the 2nd MTP joint region are consistent with osteomyelitis.
--- NOTE | 2021-08-20 09:41 | ED.EXTPRO ---
HPI - Extremity Problem General Chief complaint: Wound/Laceration Stated complaint: necrotic toe Time Seen by Provider: 08/20/21 09:37 Source: patient and EMS Mode of arrival: EMS Limitations: altered mental status (vascular dementia) History of Present Illness MD Complaint: other (R necrotic toe) Onset (ago): unknown (? unknown no RN notes but sent by wound care center ) Pain Consistency: constant Location: right and lower extremity (great toe) Quality: constant Radiation: none Relieving factors: nothing Exacerbating factors: nothing Associated symptoms: denies other symptoms Context: other (hx of R SFA occlusion was offered amputation in past due to prior osteo now sent by wound care center given her toe is infected, draining and her toe is hanging off) Related Data Home Medications Medication Instructions Recorded Confirmed acetaminophen 325 mg tablet 650 mg PO Q6H PRN 05/14/21 08/20/21 aspirin 81 mg tablet,delayed 81 mg PO DAILY 05/14/21 08/20/21 release bisacodyl 10 mg rectal suppository 10 mg MT DAILY PRN 05/14/21 08/20/21 bisacodyl 5 mg tablet 10 mg PO DAILY PRN 05/14/21 08/20/21 calcium carbonate 500 mg calcium 1,000 mg PO QID PRN 05/14/21 08/20/21 (1,250 mg) chewable tablet dorzolamide 22.3 mg-timolol 6.8 1 drp OPHTHALMIC (EYE) BID 05/14/21 08/20/21 mg/mL eye drops latanoprost 0.005 % eye drops 1 drp OPHTHALMIC (EYE) BEDTIME 05/14/21 08/20/21 magnesium hydroxide 400 mg/5 mL 30 ml PO BEDTIME PRN 05/14/21 08/20/21 oral suspension (Milk of Magnesia) metoprolol tartrate 50 mg tablet 50 mg PO BID 05/14/21 08/20/21 mirtazapine 15 mg tablet 15 mg PO BEDTIME 05/14/21 08/20/21 omeprazole 20 mg capsule,delayed 20 mg PO DAILY@0630 05/14/21 08/20/21 release ondansetron 4 mg disintegrating 4 mg PO Q6H PRN 05/14/21 08/20/21 tablet sennosides 8.6 mg tablet (senna) 8.6 mg PO BEDTIME 05/14/21 08/20/21 sennosides 8.6 mg tablet (senna) 17.2 mg PO BEDTIME PRN 05/14/21 08/20/21 tamsulosin 0.4 mg capsule 0.4 mg PO BEDTIME 05/14/21 08/20/21 artifi.tears(hypromellose)(PF) 0.3 1 drp OPHTHALMIC (EYE) BID 08/20/21 08/20/21 % eye drops insulin detemir U-100 100 unit/mL 10 unit SUBCUT DAILY 08/20/21 08/20/21 (3 mL) subcutaneous pen (Levemir FlexTouch U-100 Insulin) Allergies Allergy/AdvReac Type Severity Reaction Status Date / Time oxycodone [From PERCOCET] Allergy Mild HALLUCINATI Verified 05/15/21 16:06 ONS Review of Systems Review of Systems: ROS unable to be obtained due to altered mental status [facility] Past Medical History Attestation statement: The following information was validated with the patient. Medical History CVA (cerebral vascular accident) Diabetes Femoral artery occlusion Glaucoma HLD (hyperlipidemia) HTN (hypertension) Superficial femoral artery occlusion Vascular dementia Family History Family History Mother CVA (cerebral vascular accident) Social History Social History Household Members: Other Housing: Residential Do you presently have visiting nurse or other home services: No (pt lives in nursing facility) Alcohol intake: never Patient Tobacco Use Status: Never used Tobacco Advance Directives: Yes Advance Directives on File: Yes Advance Directives Date on File: 05/25/21 service: No Current occupational status: retired and disabled Physical Exam Vital Signs: Vital Signs: Last Vital Signs Temp 98.5 F 08/20/21 13:01 Pulse 67 08/20/21 13:01 Resp 18 08/20/21 13:01 BP 119/36 L 08/20/21 13:01 Pulse Ox 94 08/20/21 13:01 BMI result Body Mass Index 23.5 Appearance: Alert. Oriented X1 - self. No acute distress. Eyes: Pupils equal, round and reactive to light. ENT: Pharynx normal. Neck: Normal inspection. Neck supple. CVS: Normal heart rate and rhythm. Pulses normal. Respiratory: No respiratory distress. Breath sounds normal. Abdomen: Soft and non-tender. Does not grimace Skin: Skin warm and dry. Normal skin color. Extremities: R foot - warm to touch, no swelling but very strong foul odor R great toe is basically hanging off with open large wound and purulent yellow drainage and necrotic Neuro: Oriented X 1 - self. No motor deficit. No sensory deficit. Course Course Course Narrative: message sent to vascular surgery plan to admit to medicine attempts to reach son Yeison [phone] (messages left) [phone] number busy on repeat calls, number listed for niece Rosalie [phone] not in service cannot reach family - plan to admit Dr. Verduzco has seen patient in ED again agrees with antibiotics and would recommend amputation - cannot reach family MDM - Extremity (Nontraumatic) MDM Narrative Medical decision making narrative: 75 yo female with hx of vascular dementia, PAD hx of SFA occlusion, prior osteo comes in with large necrotic wound on R great toe and toe is hanging off with drainage and foul odor at this time will need labs, cultures, xray and IV antibiotics plan to call vascular as well as family for goals of care. Lab Data Result diagrams: 08/20/21 11:27 08/20/21 11:27 Labs: Lab Results 08/20/21 08/20/21 08/20/21 Range/Units 11:27 11:27 11:27 WBC 11.6 H (4.8-10.8) X10*3/uL RBC 3.15 L (4.20-5.50) X10*6/uL Hgb 8.3 L (12.0-16.0) g/dl Hct 27.2 L (37.0-47.0) % MCV 86.3 (80.0-98.0) fL MCH 26.3 L (27.0-33.0) pg MCHC 30.5 L (31.0-35.0) g/dl RDW 13.5 (11.0-16.0) % Plt Count 305 (160-400) X10*3/uL MPV 9.3 L (9.4-12.3) fL Immature Gran % (Auto) 0.4 (0.0-0.4) % Neut % (Auto) 65.8 (45-73) % Lymph % (Auto) 25.5 (20-40) % [place] % (Auto) 4.8 (2-11) % Eos % (Auto) 2.7 (0-4) % Baso % (Auto) 0.8 (0-2) % Lymph # (Auto) 3.0 (1.2-4.9) X10*3/uL [place] # (Auto) 0.6 (0.1-1.2) X10*3/uL Eos # (Auto) 0.3 (0.0-0.4) X10*3/uL Baso # (Auto) 0.1 (0.0-0.2) X10*3/uL Abs Immat Gran (auto) 0.05 H (0.00-0.03) X10*3/uL Absolute Neuts (auto) 7.7 (2.0-8.3) x10*3/uL Absolute Nucleated RBC 0.000 (0.0-0.012) X10*3/uL Nucleated RBC % (auto) 0.0 (0.0-0.2) /100WBC ESR 114 H (0-20) MM/HR Sodium 135 (135-145) mmol/L Potassium 4.7 D (3.3-5.1) mmol/L Chloride 101 (96-108) mmol/L Carbon Dioxide 28 (22-29) mmol/L Anion Gap 11 L (12-20) BUN 34 H (9-16) mg/dL Creatinine 0.83 (0.5-1.4) mg/dL Estim Creat Clear Calc 55.2 Estimated GFR > 60 Random Glucose 204 H (60-115) mg/dL Lactic Acid (0.5-2.0) mmol/L Calcium 9.2 D (8.4-10.2) mg/dL Magnesium 2.0 (1.6-2.6) mg/dL Total Bilirubin 0.2 (0.0-1.0) mg/dL Direct Bilirubin 0.2 (0.0-0.5) mg/dL AST 6 (5-31) U/L ALT < 6 (0-31) U/L Alkaline Phosphatase 67 (39-117) U/L C-Reactive Protein 6.59 H (< or = 0.50) mg/dL Total Protein 7.9 (6.5-8.0) g/dL Albumin 3.0 L (3.5-5.0) g/dL Lipase 17 (8-78) U/L COVID-19 ([facility]) (Negative) COVID-19 Clin Com Blood Type Antibody Screen 08/20/21 08/20/21 08/20/21 Range/Units 11:27 11:27 11:34 WBC (4.8-10.8) X10*3/uL RBC (4.20-5.50) X10*6/uL Hgb (12.0-16.0) g/dl Hct (37.0-47.0) % MCV (80.0-98.0) fL MCH (27.0-33.0) pg MCHC (31.0-35.0) g/dl RDW (11.0-16.0) % Plt Count (160-400) X10*3/uL MPV (9.4-12.3) fL Immature Gran % (Auto) (0.0-0.4) % Neut % (Auto) (45-73) % Lymph % (Auto) (20-40) % [place] % (Auto) (2-11) % Eos % (Auto) (0-4) % Baso % (Auto) (0-2) % Lymph # (Auto) (1.2-4.9) X10*3/uL [place] # (Auto) (0.1-1.2) X10*3/uL Eos # (Auto) (0.0-0.4) X10*3/uL Baso # (Auto) (0.0-0.2) X10*3/uL Abs Immat Gran (auto) (0.00-0.03) X10*3/uL Absolute Neuts (auto) (2.0-8.3) x10*3/uL Absolute Nucleated RBC (0.0-0.012) X10*3/uL Nucleated RBC % (auto) (0.0-0.2) /100WBC ESR (0-20) MM/HR Sodium (135-145) mmol/L Potassium (3.3-5.1) mmol/L Chloride (96-108) mmol/L Carbon Dioxide (22-29) mmol/L Anion Gap (12-20) BUN (9-16) mg/dL Creatinine (0.5-1.4) mg/dL Estim Creat Clear Calc Estimated GFR Random Glucose (60-115) mg/dL Lactic Acid 1.0 (0.5-2.0) mmol/L Calcium (8.4-10.2) mg/dL Magnesium (1.6-2.6) mg/dL Total Bilirubin (0.0-1.0) mg/dL Direct Bilirubin (0.0-0.5) mg/dL AST (5-31) U/L ALT (0-31) U/L Alkaline Phosphatase (39-117) U/L C-Reactive Protein (< or = 0.50) mg/dL Total Protein (6.5-8.0) g/dL Albumin (3.5-5.0) g/dL Lipase (8-78) U/L COVID-19 ([facility]) Negative (Negative) COVID-19 Clin Com See Note Blood Type AB Positive Antibody Screen NEGATIVE Discharge Plan Discharge Clinical Impression: Necrosis of toe Osteomyelitis Qualifiers: Osteomyelitis type: acute hematogenous Osteomyelitis location: foot Laterality: right Qualified Code(s): M86.071 - Acute hematogenous osteomyelitis, right ankle and foot Patient Disposition: Admitted As Inpatient
[2021-08-20 09:42] VITALS: BP 114/72; BP 148/52; PULSE 68; PULSE 82; RESP 18; TEMP 36.6; O2SAT 100; O2SAT 96; BMI 23.5
[2021-08-20 11:33] LABS: MANUAL DIFF FLAG NO
[2021-08-20 11:36] LABS: Basophils Absolute Auto 0.1 X10*3/uL (0.0-0.2); Basophils Percent Auto 0.8 % (0-2); Eosinophils Absolute Auto 0.3 X10*3/uL (0.0-0.4); Eosinophils Percent Auto 2.7 % (0-4); Hematocrit 27.2 % (37.0-47.0); Hemoglobin 8.3 g/dl (12.0-16.0); Imm Gran Abs Auto 0.05 X10*3/uL (0.00-0.03); Imm Gran Pct Auto 0.4 % (0.0-0.4); Lymphocytes Percent Auto 25.5 % (20-40); Mean Corpuscular HGB Conc 30.5 g/dl (31.0-35.0); Mean Corpuscular Hemoglobin 26.3 pg (27.0-33.0); Mean Corpuscular Volume 86.3 fL (80.0-98.0); Mean Platelet Volume 9.3 fL (9.4-12.3); Monocytes Absolute Auto 0.6 X10*3/uL (0.1-1.2); Monocytes Percent Auto 4.8 % (2-11); Neutrophils Absolute Auto 7.7 x10*3/uL (2.0-8.3); Neutrophils Percent Auto 65.8 % (45-73); Platelet Count 305 X10*3/uL (160-400); Red Blood Count 3.15 X10*6/uL (4.20-5.50); Red Cell Distribution Width 13.5 % (11.0-16.0); White Blood Count 11.6 X10*3/uL (4.8-10.8)
--- NOTE | 2021-08-20 11:47 | PHA.MEDREC ---
Pharmacy Consult ? Medication Reconciliation Pharmacy has completed the medication reconciliation. Spoke to RN to confirm meds, fax never came.
[2021-08-20 11:53] LABS: Alanine Aminotransferase < 6 U/L (0-31); Alkaline Phosphatase 67 U/L (39-117); Anion Gap 11 (12-20); Aspartate Amino Transferase 6 U/L (5-31); Bilirubin Direct 0.2 mg/dL (0.0-0.5); Bilirubin Total 0.2 mg/dL (0.0-1.0); Blood Urea Nitrogen 34 mg/dL (9-16); C Reactive Protein 6.59 mg/dL (< or = 0.50); Calcium 9.2 mg/dL (8.4-10.2); Carbon Dioxide 28 mmol/L (22-29); Chloride 101 mmol/L (96-108); Creatinine Clr Calc Pharmacy 55.2; Estimated Glomerular Filt Rate > 60; Glucose Random 204 mg/dL (60-115); Lipase 17 U/L (8-78); Potassium 4.7 mmol/L (3.3-5.1); Sodium 135 mmol/L (135-145); Total Protein 7.9 g/dL (6.5-8.0)
[2021-08-20 12:02] LABS: COVID-19 Test Negative (Negative)
[2021-08-20] MEDS: ondansetron HCL 4 MG/2 ML VIAL IVPUSH (12:08)
[2021-08-20] MEDS: Morphine Sulfate 2 MG/ML CARTRIDGE IVPUSH (12:10)
[2021-08-20] MEDS: Ertapenem Sodium 1 GM in 0.9 % Sodium Chloride 50 ML IV (12:10)
[2021-08-20] MEDS: vancomycin HCL 750 MG in 0.9 % Sodium Chloride 250 ML 265 MG IV (12:41)
[2021-08-20 13:01] VITALS: BP 119/36; PULSE 67; RESP 18; TEMP 36.9; O2SAT 94
[2021-08-20 13:28] LABS: Erythrocyte Sedimentation Rate 114 MM/HR (0-20)
--- NOTE | 2021-08-20 14:04 | P.CONGS_ITS ---
History of Present Illness Consult details Consult date: 08/20/21 Reason for consult: wound care (Necrotic right foot) Narrative: Unfortunate 75-year-old female well known to me from prior hospitalization presents for follow-up regarding necrotic right lower extremity. She has been in a facility with antibiotics. Upon prior discharge the recommendation at that time was an above knee amputation versus hospice care. The son and family were indeterminate about that. At that time she was then transferred to a rehab facility and treated conservatively. The foot continues to progress and has become worse. She is now for hospice follow-up. Of note she has vascular dementia and is non ambulatory. Review of Systems Review of Systems: Yes Unobtainable due to mental condition ENT: Reports Normal hearing present Cardiovascular: Cardiovascular: Reports pedal edema Respiratory: Respiratory: Denies cough Gastrointestinal: Gastrointestinal: Denies abdominal pain Musculoskeletal: Comments: In bed does not ambulate Integumentary/Breasts: Skin/Breast: Reports skin ulcer and Reports wounds Neurologic: Reports Normal hearing present [facility] Past Medical History Medical History CVA (cerebral vascular accident) Diabetes Femoral artery occlusion Glaucoma HLD (hyperlipidemia) HTN (hypertension) Superficial femoral artery occlusion Vascular dementia Family History Family History Mother CVA (cerebral vascular accident) Social History Social History Household Members: Other Housing: Assisted Do you presently have visiting nurse or other home services: No (pt lives in nursing facility) Alcohol intake: never Patient Tobacco Use Status: Never used Tobacco Advance Directives: Yes Advance Directives on File: Yes Advance Directives Date on File: 05/25/21 service: No Current occupational status: retired and disabled Meds Allergies Allergy/AdvReac Type Severity Reaction Status Date / Time oxycodone [From PERCOCET] Allergy Mild HALLUCINATI Verified 05/15/21 16:06 ONS Active Medications: Current Medications Pharmacy Consult (Consult Rx Perform Med Rec) 1 each MISCELLANE ONCE PRN PRN Reason: Consult order Pharmacy Consult (Consult Rx Vancomycin Dosing) 1 each MISCELLANE DAILY PRN PRN Reason: Consult order Home Medications Medication Instructions Recorded Confirmed Last Taken Type acetaminophen 325 mg tablet 650 mg PO Q6H PRN 05/14/21 08/20/21 Unknown History aspirin 81 mg tablet,delayed 81 mg PO DAILY 05/14/21 08/20/21 08/20/21 History release bisacodyl 10 mg rectal suppository 10 mg SC DAILY PRN 05/14/21 08/20/21 Unknown History bisacodyl 5 mg tablet 10 mg PO DAILY PRN 05/14/21 08/20/21 Unknown History calcium carbonate 500 mg calcium 1,000 mg PO QID PRN 05/14/21 08/20/21 Unknown History (1,250 mg) chewable tablet dorzolamide 22.3 mg-timolol 6.8 1 drp OPHTHALMIC (EYE) BID 05/14/21 08/20/21 08/20/21 History mg/mL eye drops latanoprost 0.005 % eye drops 1 drp OPHTHALMIC (EYE) BEDTIME 05/14/21 08/20/21 Unknown History magnesium hydroxide 400 mg/5 mL 30 ml PO BEDTIME PRN 05/14/21 08/20/21 Unknown History oral suspension (Milk of EcoSurge) metoprolol tartrate 50 mg tablet 50 mg PO BID 05/14/21 08/20/21 08/20/21 History mirtazapine 15 mg tablet 15 mg PO BEDTIME 05/14/21 08/20/21 Unknown History omeprazole 20 mg capsule,delayed 20 mg PO DAILY@0630 05/14/21 08/20/21 08/20/21 History release ondansetron 4 mg disintegrating 4 mg PO Q6H PRN 05/14/21 08/20/21 Unknown History tablet sennosides 8.6 mg tablet (senna) 8.6 mg PO BEDTIME 05/14/21 08/20/21 Unknown History sennosides 8.6 mg tablet (senna) 17.2 mg PO BEDTIME PRN 05/14/21 08/20/21 Unknown History tamsulosin 0.4 mg capsule 0.4 mg PO BEDTIME 05/14/21 08/20/21 Unknown History artifi.tears(hypromellose)(PF) 0.3 1 drp OPHTHALMIC (EYE) BID 08/20/21 08/20/21 Unknown History % eye drops insulin detemir U-100 100 unit/mL 10 unit SUBCUT DAILY 08/20/21 08/20/21 08/20/21 History (3 mL) subcutaneous pen (Levemir FlexTouch U-100 Insulin) Physical Exam Vital Signs: Vital Signs: Last Vital Signs Temp 98.5 F 08/20/21 13:01 Pulse 67 08/20/21 13:01 Resp 18 08/20/21 13:01 BP 119/36 L 08/20/21 13:01 Pulse Ox 94 08/20/21 13:01 BMI result Body Mass Index 23.5 Const: General: cooperative, healthy appearing and comfortable Orientation/consciousness: oriented to person, oriented to place and oriented to time HENMT: Head: Yes normal to inspection Neck: Neck: Yes normal visual inspection Carotids: no bruits Chest: Chest palpation & inspection: normal inspection of the chest Resp: Effort & Inspection: normal respiratory effort and able to speak in complete sentences Auscultation: clear to auscultation bilaterally, no crackles, no rales, no rhonchi and no wheezes Cardio: Rate: regular rate Rhythm: regular rhythm Heart sounds: S1 normal heart sound present and S2 normal heart sound present Bruits: no carotid bruits Peripheral pulses: dorsalis pedis present (Bilateral DP signal) GI: Inspection: Yes normal to inspection Skin: Wounds: wounds noted (Right lower extremity necrotic foot, foul odor) Hair: normal Neuro: General: oriented to person, oriented to place and oriented to time Cranial nerves: Yes CN's II-XII intact bilaterally and Yes Normal hearing present Cognition (Neuro): normal cognition Motor exam (neuro): 5/5 motor strength present throughout Extrem: Other: venous exam: No significant superficial varicosities or spider telangiectasias, minimal edema General: No clubbing, No cyanosis and No edema Psych: Appearance: grossly normal Mental Status: mental status grossly normal Speech and movement: Normal speech and movement present Results Labs Result diagrams: 08/20/21 11:27 08/20/21 11:27 Labs: Abnormal lab results 08/20/21 08/20/21 08/20/21 Range/Units 11:27 11:27 11:27 WBC 11.6 H (4.8-10.8) X10*3/uL RBC 3.15 L (4.20-5.50) X10*6/uL Hgb 8.3 L (12.0-16.0) g/dl Hct 27.2 L (37.0-47.0) % MCH 26.3 L (27.0-33.0) pg MCHC 30.5 L (31.0-35.0) g/dl MPV 9.3 L (9.4-12.3) fL Abs Immat Gran (auto) 0.05 H (0.00-0.03) X10*3/uL ESR 114 H (0-20) MM/HR Anion Gap 11 L (12-20) BUN 34 H (9-16) mg/dL Random Glucose 204 H (60-115) mg/dL C-Reactive Protein 6.59 H (< or = 0.50) mg/dL Albumin 3.0 L (3.5-5.0) g/dL Short CBC 08/20/21 Range/Units 11:27 WBC 11.6 H (4.8-10.8) X10*3/uL Hgb 8.3 L (12.0-16.0) g/dl Hct 27.2 L (37.0-47.0) % Plt Count 305 (160-400) X10*3/uL BMP 08/20/21 11:27 Sodium 135 Potassium 4.7 D Chloride 101 Carbon Dioxide 28 BUN 34 H Creatinine 0.83 Calcium 9.2 D Liver Function 08/20/21 Range/Units 11:27 Total Bilirubin 0.2 (0.0-1.0) mg/dL Direct Bilirubin 0.2 (0.0-0.5) mg/dL AST 6 (5-31) U/L ALT < 6 (0-31) U/L Alkaline Phosphatase 67 (39-117) U/L Albumin 3.0 L (3.5-5.0) g/dL All other labs normal. Assessment and Plan (1) PAD (peripheral artery disease): Status: Acute Unfortunately patient is in a difficult to situation. At the time of my visit in the ER they were unable to reach healthcare proxy. The discussion on the prior visit was amputation which would be right above knee amputation versus hospice care. I do not believe that she would tolerate any additional interventions or treatment. Her leg continues to deteriorate. If this is not treated she will become septic and potentially from this. I think the prior plans are as stands. I recommend above knee amputation of that right leg verses hospice care. Case was discussed with the hospitalist team. I will write wound care orders of daily paint with Betadine and a Kerlix wrap to that foot. Thank you for allowing me to participate in her care. Procedures Date of Service Date of Service: 08/20/21
[2021-08-20 14:36] VITALS: BP 131/41; PULSE 74; RESP 18; O2SAT 100
--- NOTE | 2021-08-20 14:57 | PM.IMHP ---
History of Present Illness Date of Service: 08/20/21 Attending physician on admission: Leon Berumen Chief Complaint: foot wound This is a 75-year-old female who was sent to the emergency department today due to worsening right foot infection. She was admitted in May for necrotic foot wound. At that time she was seen by vascular surgery who recommended [id number] amputation versus hospice care. She was discharged back to rehab with conservative management. she was evaluated by the wound care this morning and sent to the hospital for evaluation due to worsening of the foot wound. She was seen by Dr. Verduzco vascular surgery in the emergency department who continues to recommend right [id number] amputation versus hospice. The patient has a history of vascular dementia and her healthcare proxy has been invoked. The ED was unable to reach the patient's healthcare proxy. In the emergency department she underwent x-ray of her foot which showed multiple air foci in the soft tissues of the distal foot had 1st and 2nd toes, Increased destruction of the base of the 5th proximal phalanx and Findings in the 2nd MTP joint are consistent with osteomyelitis. She was treated with empiric antibiotics on decision was made to admit her for further management. Difficult to obtain history from patient due to her underlying vascular dementia. Review of Systems Review of Systems: Yes Unobtainable due to mental condition [facility] Medical History CVA (cerebral vascular accident) Diabetes Femoral artery occlusion Glaucoma HLD (hyperlipidemia) HTN (hypertension) Superficial femoral artery occlusion Vascular dementia Family History Mother CVA (cerebral vascular accident) Social History Household Members: Other Housing: Intermediate Do you presently have visiting nurse or other home services: No (pt lives in nursing facility) Alcohol intake: never Patient Tobacco Use Status: Never used Tobacco Advance Directives: Yes Advance Directives on File: Yes Advance Directives Date on File: 05/25/21 service: No Current occupational status: retired and disabled Meds Allergies Allergy/AdvReac Type Severity Reaction Status Date / Time oxycodone [From PERCOCET] Allergy Mild HALLUCINATI Verified 05/15/21 16:06 ONS Active Medications: Current Medications Acetaminophen (Acetaminophen 325 Mg Tablet) 650 mg PO Q6H PRN PRN Reason: Pain, Mild (Pain Scale 1-3) Artificial Tears (Artificial Tears 15 Ml Drops) 1 drop EYE-BOTH BID [facility] [place] Bisacodyl (Bisacodyl 5 Mg Tablet.) 10 mg PO DAILY PRN PRN Reason: Constipation Dextrose (Dextrose 50 % 25 Gm/50 Ml Vial) 25 gm IVPUSH Q15M PRN; Protocol PRN Reason: per Hypoglycemia Standing Ord. Docusate Sodium (Docusate Sodium 100 Mg Capsule) 100 mg PO DAILY PRN PRN Reason: Constipation Dorzolamide/Timolol (Dorzolamide/Timolo 2.23%/0.68% 10 Ml Drbtl) 1 drop EYE-BOTH BID [facility] [place] Glucose (Glucose Gel 15 Gm Gel..Gram.) 15 gm PO Q15M PRN; Protocol PRN Reason: per Hypoglycemia Standing Ord. Heparin Sodium (Porcine) (Heparin Sodium,Porcine 5,000 Unit/Ml Vial) 5,000 unit SUBCUT Q12H [facility] [place] Piperacillin Sod/Tazobactam (Sod 4.5 gm/ Sodium Chloride) 100 mls @ 200 mls/hr IV Q6H [facility] [place] Insulin Human Lispro (Insulin Lispro 100 Unit/Ml 3 Ml Vial) 0 unit SUBCUT QIDACHS [facility] [place]; Protocol Latanoprost (Latanoprost 0.005 % Ophth Susie 2.5 Ml Drops) 1 drop EYE-BOTH BEDTIME [facility] [place] Metoprolol Tartrate (Metoprolol Tartrate 50 Mg Tablet) 50 mg PO BID [facility] [place]; Protocol Mirtazapine (Mirtazapine 15 Mg Tablet) 15 mg PO BEDTIME [facility] [place] Non-Formulary Medication (Insulin Detemir U-100 [Levemir Flextouch U-100 Insuln]) 6 unit SUBCUT DAILY [facility] [place] Omeprazole (Omeprazole 20 Mg Capsule.) 20 mg PO DAILY@0630 [facility] [place] Ondansetron HCl (Ondansetron Hcl 4 Mg/2 Ml Vial) 4 mg IVPUSH Q8H PRN PRN Reason: Nausea and Vomiting Pharmacy Consult (Consult Rx Perform Med Rec) 1 each MISCELLANE ONCE PRN PRN Reason: Consult order Pharmacy Consult (Consult Rx Vancomycin Dosing) 1 each MISCELLANE DAILY PRN PRN Reason: Consult order Pharmacy Consult (Consult Rx Vancomycin Dosing) 1 each MISCELLANE DAILY PRN PRN Reason: Consult order Senna (Sennosides 8.6 Mg Tablet) 8.6 mg PO BEDTIME [facility] [place] Sodium Chloride (0.9 % Sodium Chloride Flush 3 Ml Syringe) 3 ml IVFLUSH QSHIFT [facility] [place] Tamsulosin HCl (Tamsulosin Hcl 0.4 Mg Capsule) 0.4 mg PO BEDTIME [facility] [place] Home Medications Medication Instructions Recorded Confirmed Last Taken Type acetaminophen 325 mg tablet 650 mg PO Q6H PRN 05/14/21 08/20/21 Unknown History aspirin 81 mg tablet,delayed 81 mg PO DAILY 05/14/21 08/20/21 08/20/21 History release bisacodyl 10 mg rectal suppository 10 mg DE DAILY PRN 05/14/21 08/20/21 Unknown History bisacodyl 5 mg tablet 10 mg PO DAILY PRN 05/14/21 08/20/21 Unknown History calcium carbonate 500 mg calcium 1,000 mg PO QID PRN 05/14/21 08/20/21 Unknown History (1,250 mg) chewable tablet dorzolamide 22.3 mg-timolol 6.8 1 drp OPHTHALMIC (EYE) BID 05/14/21 08/20/21 08/20/21 History mg/mL eye drops latanoprost 0.005 % eye drops 1 drp OPHTHALMIC (EYE) BEDTIME 05/14/21 08/20/21 Unknown History magnesium hydroxide 400 mg/5 mL 30 ml PO BEDTIME PRN 05/14/21 08/20/21 Unknown History oral suspension (Milk of Magnesia) metoprolol tartrate 50 mg tablet 50 mg PO BID 05/14/21 08/20/21 08/20/21 History mirtazapine 15 mg tablet 15 mg PO BEDTIME 05/14/21 08/20/21 Unknown History omeprazole 20 mg capsule,delayed 20 mg PO DAILY@0630 05/14/21 08/20/21 08/20/21 History release ondansetron 4 mg disintegrating 4 mg PO Q6H PRN 05/14/21 08/20/21 Unknown History tablet sennosides 8.6 mg tablet (senna) 8.6 mg PO BEDTIME 05/14/21 08/20/21 Unknown History sennosides 8.6 mg tablet (senna) 17.2 mg PO BEDTIME PRN 05/14/21 08/20/21 Unknown History tamsulosin 0.4 mg capsule 0.4 mg PO BEDTIME 05/14/21 08/20/21 Unknown History artifi.tears(hypromellose)(PF) 0.3 1 drp OPHTHALMIC (EYE) BID 08/20/21 08/20/21 Unknown History % eye drops insulin detemir U-100 100 unit/mL 10 unit SUBCUT DAILY 08/20/21 08/20/21 08/20/21 History (3 mL) subcutaneous pen (Levemir FlexTouch U-100 Insulin) Physical Exam Vital Signs and Narrative: Vital Signs: Last Vital Signs Temp 98.5 F 08/20/21 13:01 Pulse 74 08/20/21 14:36 Resp 18 08/20/21 14:36 BP 131/41 L 08/20/21 14:36 Pulse Ox 100 08/20/21 14:36 BMI result Body Mass Index 23.5 Const: General: cooperative, alert and awake Nutritional Appearance: well nourished HENMT: Head: Yes normocephalic and Yes atraumatic Eyes: Sclerae: sclerae normal Resp: Effort & Inspection: normal respiratory effort and no respiratory distress Cardio: Rate: regular rate Rhythm: regular rhythm GI: Palpation (GI): Soft to palpation and nontender Skin: Other: Neuro: Cranial nerves: Yes CN's II-XII intact bilaterally and Yes Bilaterally intact EOM present Extrem: Other: b/l upper extremity contractures Results Labs CBC and Chem 7: 08/20/21 11:27 08/20/21 11:27 Labs: Laboratory Results - last 24 hr 08/20/21 08/20/21 08/20/21 11:27 11:27 11:27 MCV 86.3 MCH 26.3 L MCHC 30.5 L RDW 13.5 Plt Count 305 MPV 9.3 L Immature Gran % (Auto) 0.4 Neut % (Auto) 65.8 Lymph % (Auto) 25.5 [place] % (Auto) 4.8 Eos % (Auto) 2.7 Baso % (Auto) 0.8 Lymph # (Auto) 3.0 [place] # (Auto) 0.6 Eos # (Auto) 0.3 Baso # (Auto) 0.1 Abs Immat Gran (auto) 0.05 H Absolute Neuts (auto) 7.7 Absolute Nucleated RBC 0.000 Nucleated RBC % (auto) 0.0 ESR 114 H Anion Gap 11 L Estim Creat Clear Calc 55.2 Estimated GFR > 60 Random Glucose 204 H Lactic Acid Calcium 9.2 D Magnesium 2.0 Total Bilirubin 0.2 Direct Bilirubin 0.2 AST 6 ALT < 6 Alkaline Phosphatase 67 C-Reactive Protein 6.59 H Total Protein 7.9 Albumin 3.0 L Lipase 17 COVID-19 ([facility]) COVID-19 Clin Com Blood Type Antibody Screen 08/20/21 08/20/21 08/20/21 11:27 11:27 11:34 MCV MCH MCHC RDW Plt Count MPV Immature Gran % (Auto) Neut % (Auto) Lymph % (Auto) [place] % (Auto) Eos % (Auto) Baso % (Auto) Lymph # (Auto) [place] # (Auto) Eos # (Auto) Baso # (Auto) Abs Immat Gran (auto) Absolute Neuts (auto) Absolute Nucleated RBC Nucleated RBC % (auto) ESR Anion Gap Estim Creat Clear Calc Estimated GFR Random Glucose Lactic Acid 1.0 Calcium Magnesium Total Bilirubin Direct Bilirubin AST ALT Alkaline Phosphatase C-Reactive Protein Total Protein Albumin Lipase COVID-19 ([facility]) Negative COVID-19 Clin Com See Note Blood Type AB Positive Antibody Screen NEGATIVE Imaging Radiologist's Impressions: Impressions Foot X-Ray 08/20/21 10:15 IMPRESSION: Severe osteopenia. Multiple air foci in the soft tissues of the distal foot at 1st and 2nd toes, greater over the plantar aspect limits the evaluation of underlying osseous structures. Increased destruction of the base of the 5th proximal phalanx along with destruction is suspected. Some destruction of the 1st metatarsal head and 1st proximal phalanx cannot be completely excluded. Findings in the 2nd MTP joint region are consistent with osteomyelitis. Assessment and Plan (1) Necrosis of toe: Status: Acute (2) Osteomyelitis: Qualifiers: Laterality: right Osteomyelitis location: foot Osteomyelitis type: acute hematogenous Qualified Code(s): M86.071 - Acute hematogenous osteomyelitis, right ankle and foot Status: Acute (3) PAD (peripheral artery disease): Status: Acute this is a 75-year-old female history PVD, diabetes, hypertension, right SFA occlusion, stroke with left hemiparesis and vascular dementia (healthcare proxy invoked) sent to the ED for worsening right foot infection necrotic foot infection/osteomyeleitis right foot secondary to diabetes and PVD continue Broad-spectrum antibiotics seen by vascular surgery recommends [id number] amputation diabetes hypoglycemia last admission. Hold levemir Continue sliding scale History of CVA with left hemiparesis and vascular dementia Continue aspirin, statin HTN continue metoprolol gerd continue omeprazole dvt ppx - heparin code status- MOLST form chart indicates DNR/ DNI HCP - Reza Loyola attending - dr. berumen Quality Stroke Does the patient have a stroke diagnosis?: No VTE Prior VTE?: No VTE Risk Level:: Medical - moderate - high VTE Device Contraindication: N/A - Device Ordered VTE Drug Contraindication: N/A - Med Ordered
--- NOTE | 2021-08-20 15:20 | PHA.PROG ---
Admission Date/Time: August 20, 2021 14:41 Indication: Weight in k.039 kg Adjusted body weight in Kg: [place] body weight in Kg: Obesity Dosing Indication % IBW: Serum Creatinine - Last 168 Hours 08/20/21 11:27 Creatinine 0.83 Estimated CrCl and GFR - Last 168 Hours 08/20/21 11:27 Estim Creat Clear Calc 55.2 Estimated GFR > 60 Vancomycin Loading Dose: 750 mg Current Vancomycin Dosing Regimen: 1250 mg q24h Vancomycin Monitoring using AUC goal of 400 - 600 range with trough as surrogate marker: Date and Time for next Vancomycin Level to be drawn: 08/22/21 @1000 Pharmacist Comments on Vancomycin Plan: higher dosing due to osteo, checking level early due to age. Vancomycin dosing will take advantage of [employer] as a clinical decision support tool that uses Bayesian modeling to calculate individual patient's pharmacokinetic parameters and forecast the patient's drug concentration time course with the target goal AUC 24 range of 400 - 600 mg/L/hr.
[2021-08-20] MEDS: Piperacillin Sodium/Tazobactam 4.5 GM in 0.9 % Sodium Chloride 100 ML IV ×2 (16:16→22:04)
[2021-08-20 17:12] LABS: Glucose, Whole Blood 132 mg/dL (60-115)
--- NOTE | 2021-08-20 19:30 | PC.NURSE ---
Assumed care of pt Pt assisted with dinner Pt tolerated soup and crackers Pt refused pudding Will continue to monitor
[2021-08-20 20:25] VITALS: BP 145/58; PULSE 80; RESP 18; TEMP 36.2; O2SAT 95
[2021-08-20] MEDS: Sennosides 8.6 MG TABLET PO (22:03)
[2021-08-20] MEDS: Tamsulosin HCL 0.4 MG CAPSULE PO (22:03)
[2021-08-20] MEDS: Metoprolol Tartrate 50 MG TABLET PO (22:03)
[2021-08-20] MEDS: Insulin Lispro 100 UNIT/ML 3 ML VIAL SUBCUT (22:07)
--- NOTE | 2021-08-20 22:15 | PC.NURSE ---
Pt medicated per OCT Pt medication given with apple sauce and water Pt tolerated well Pt turned on RT side NAD Will continue to monitor
[2021-08-20 22:26] LABS: Glucose, Whole Blood 160 mg/dL (60-115)
[2021-08-20] MEDS: Mirtazapine 15 MG TABLET PO (23:10)
[2021-08-20] MEDS: Dorzolamide/Timolo 2.23%/0.68% 10 ML DRBTL 1 DROP EYE-BOTH (23:10)
[2021-08-20] MEDS: Latanoprost 0.005 % Ophth Sol 2.5 ML DROPS 1 DROP EYE-BOTH (23:11)
[2021-08-20] MEDS: Artificial Tears 15 ML DROPS 1 DROP EYE-BOTH (23:11)
[2021-08-21] MEDS: Piperacillin Sodium/Tazobactam 4.5 GM in 0.9 % Sodium Chloride 100 ML IV ×4 (03:47→21:26)
[2021-08-21] MEDS: Heparin Sodium,Porcine 5,000 UNIT/ML VIAL 5000 UNIT SUBCUT ×2 (03:48→15:33)
[2021-08-21 03:53] VITALS: BP 134/56; PULSE 80; RESP 16; TEMP 36.6
--- NOTE | 2021-08-21 04:00 | PC.NURSE ---
Pt tolerating IV abx Pt turned to LT side Pt tolerated well Will continue to monitor
[2021-08-21] MEDS: Omeprazole 20 MG CAPSULE.DR PO (05:42)
--- NOTE | 2021-08-21 07:08 | PC.NURSE ---
08/20/21 1630 insulin not administered by previous rn
[2021-08-21 07:34] LABS: MANUAL DIFF FLAG NO
[2021-08-21 07:36] LABS: Basophils Absolute Auto 0.1 X10*3/uL (0.0-0.2); Basophils Percent Auto 0.7 % (0-2); Eosinophils Absolute Auto 0.3 X10*3/uL (0.0-0.4); Eosinophils Percent Auto 3.6 % (0-4); Hematocrit 24.2 % (37.0-47.0); Hemoglobin 7.5 g/dl (12.0-16.0); Imm Gran Abs Auto 0.02 X10*3/uL (0.00-0.03); Imm Gran Pct Auto 0.3 % (0.0-0.4); Lymphocytes Absolute Auto 2.4 X10*3/uL (1.2-4.9); Lymphocytes Percent Auto 32.9 % (20-40); Mean Corpuscular Hemoglobin 26.6 pg (27.0-33.0); Mean Corpuscular Volume 85.8 fL (80.0-98.0); Mean Platelet Volume 8.5 fL (9.4-12.3); Monocytes Absolute Auto 0.4 X10*3/uL (0.1-1.2); Monocytes Percent Auto 5.3 % (2-11); Neutrophils Absolute Auto 4.1 x10*3/uL (2.0-8.3); Neutrophils Percent Auto 57.2 % (45-73); Platelet Count 255 X10*3/uL (160-400); Red Blood Count 2.82 X10*6/uL (4.20-5.50); Red Cell Distribution Width 13.4 % (11.0-16.0); White Blood Count 7.2 X10*3/uL (4.8-10.8)
--- NOTE | 2021-08-21 07:43 | PC.NURSE ---
pt refused poc
[2021-08-21 08:09] LABS: Anion Gap 12 (12-20); Blood Urea Nitrogen 30 mg/dL (9-16); Calcium 8.6 mg/dL (8.4-10.2); Carbon Dioxide 25 mmol/L (22-29); Chloride 105 mmol/L (96-108); Creatinine Clr Calc Pharmacy 57.2; Estimated Glomerular Filt Rate > 60; Glucose Random 94 mg/dL (60-115); Potassium 4.1 mmol/L (3.3-5.1); Sodium 138 mmol/L (135-145)
[2021-08-21] MEDS: Metoprolol Tartrate 50 MG TABLET PO (08:50)
[2021-08-21] MEDS: Aspirin Enteric Coated 81 MG TABLET.DR PO (08:50)
[2021-08-21] MEDS: Artificial Tears 15 ML DROPS 1 DROP EYE-BOTH ×2 (08:52→22:28)
[2021-08-21] MEDS: Dorzolamide/Timolo 2.23%/0.68% 10 ML DRBTL 1 DROP EYE-BOTH ×2 (08:52→22:28)
--- NOTE | 2021-08-21 09:42 | PC.NURSE ---
pt cleaned up, linen changed and repositioned.
[2021-08-21 11:37] LABS: Glucose, Whole Blood 92 mg/dL (60-115)
[2021-08-21] MEDS: vancomycin HCL 1,250 MG in 0.9 % Sodium Chloride 250 ML 166.67 MG IV (12:41)
--- NOTE | 2021-08-21 12:46 | HO.PM.IMPN ---
Subjective Subjective Date of Service: 08/21/21 Review of Systems Follow up foot infection nonverbal patient Physical Exam Vital Signs: Vital Signs: Last Vital Signs Temp 97.9 F 08/21/21 03:53 Pulse 80 08/21/21 03:53 Resp 16 08/21/21 03:53 BP 134/56 L 08/21/21 03:53 Pulse Ox 95 08/20/21 20:25 BMI result Body Mass Index 23.5 Appearing in no acute distress lung sounds are clear to auscultation heart regular rate rhythm, clear S1, S2 positive bowel sounds, abdomen is soft, nontender neuro patient is alert, mostly nonverbal noted contractures Objective Data Active Medications Acetaminophen (Acetaminophen 325 Mg Tablet) 650 mg PO Q6H PRN PRN Reason: Pain, Mild (Pain Scale 1-3) Artificial Tears (Artificial Tears 15 Ml Drops) 1 drop EYE-BOTH BID [facility] Last Admin: 08/21/21 08:52 Dose: 1 drop Documented by: LISETH Aspirin (Aspirin Enteric Coated 81 Mg Tablet.) 81 mg PO DAILY [facility] Last Admin: 08/21/21 08:50 Dose: 81 mg Documented by: LISETH Bisacodyl (Bisacodyl 5 Mg Tablet.) 10 mg PO DAILY PRN PRN Reason: Constipation Dextrose (Dextrose 50 % 25 Gm/50 Ml Vial) 25 gm IVPUSH Q15M PRN; Protocol PRN Reason: per Hypoglycemia Standing Ord. Docusate Sodium (Docusate Sodium 100 Mg Capsule) 100 mg PO DAILY PRN PRN Reason: Constipation Dorzolamide/Timolol (Dorzolamide/Timolo 2.23%/0.68% 10 Ml Drbtl) 1 drop EYE-BOTH BID [facility] Last Admin: 08/21/21 08:52 Dose: 1 drop Documented by: LISETH Glucose (Glucose Gel 15 Gm Gel..Gram.) 15 gm PO Q15M PRN; Protocol PRN Reason: per Hypoglycemia Standing Ord. Heparin Sodium (Porcine) (Heparin Sodium,Porcine 5,000 Unit/Ml Vial) 5,000 unit SUBCUT Q12H [facility] Last Admin: 08/21/21 03:48 Dose: 5,000 unit Documented by: ALFREDO Piperacillin Sod/Tazobactam (Sod 4.5 gm/ Sodium Chloride) 100 mls @ 200 mls/hr IV Q6H [facility] Last Infusion: 08/21/21 09:24 Dose: 0 mls/hr Documented by: LISETH Vancomycin HCl 1,250 mg/ (Sodium Chloride) 250 mls @ 166.667 mls/hr IV Q24H [facility] Last Admin: 08/21/21 12:41 Dose: 166.67 mls/hr Documented by: CAMERON Insulin Human Lispro (Insulin Lispro 100 Unit/Ml 3 Ml Vial) 0 unit SUBCUT QIDACHS [facility]; Protocol Last Admin: 08/21/21 11:43 Dose: Not Given Documented by: CAMERON Non-Admin Reason: No Insulin Coverage Latanoprost (Latanoprost 0.005 % Ophth Susie 2.5 Ml Drops) 1 drop EYE-BOTH BEDTIME [facility] Last Admin: 08/20/21 23:11 Dose: 1 drop Documented by: IVY Metoprolol Tartrate (Metoprolol Tartrate 50 Mg Tablet) 50 mg PO BID [facility]; Protocol Last Admin: 08/21/21 08:50 Dose: 50 mg Documented by: LISETH Mirtazapine (Mirtazapine 15 Mg Tablet) 15 mg PO BEDTIME [facility] Last Admin: 08/20/21 23:10 Dose: 15 mg Documented by: IVY Omeprazole (Omeprazole 20 Mg Capsule.Dr) 20 mg PO DAILY@0630 [facility] Last Admin: 08/21/21 05:42 Dose: 20 mg Documented by: ALFREDO Ondansetron HCl (Ondansetron Hcl 4 Mg/2 Ml Vial) 4 mg IVPUSH Q8H PRN PRN Reason: Nausea and Vomiting Pharmacy Consult (Consult Rx Perform Med Rec) 1 each MISCELLANE ONCE PRN PRN Reason: Consult order Pharmacy Consult (Consult Rx Vancomycin Dosing) 1 each MISCELLANE DAILY PRN PRN Reason: Consult order Pharmacy Consult (Consult Rx Vancomycin Dosing) 1 each MISCELLANE DAILY PRN PRN Reason: Consult order Senna (Sennosides 8.6 Mg Tablet) 8.6 mg PO BEDTIME [facility] Last Admin: 08/20/21 22:03 Dose: 8.6 mg Documented by: IVY Sodium Chloride (0.9 % Sodium Chloride Flush 3 Ml Syringe) 3 ml IVFLUSH QSHIFT [facility] Last Admin: 08/21/21 08:52 Dose: Not Given Documented by: LISETH Non-Admin Reason: IV Running Tamsulosin HCl (Tamsulosin Hcl 0.4 Mg Capsule) 0.4 mg PO BEDTIME [facility] Last Admin: 08/20/21 22:03 Dose: 0.4 mg Documented by: IVY Labs CBC & Chem 7: 08/21/21 07:24 08/21/21 07:24 Labs: Laboratory Results - last 24 hr 08/20/21 08/20/21 08/20/21 11:27 11:34 17:05 MCV MCH MCHC RDW Plt Count MPV Immature Gran % (Auto) Neut % (Auto) Lymph % (Auto) Edwards % (Auto) Eos % (Auto) Baso % (Auto) Lymph # (Auto) Edwards # (Auto) Eos # (Auto) Baso # (Auto) Abs Immat Gran (auto) Absolute Neuts (auto) Absolute Nucleated RBC Nucleated RBC % (auto) ESR 114 H Anion Gap Estim Creat Clear Calc Estimated GFR POC Glucose 132 H Random Glucose Calcium Blood Type AB Positive Antibody Screen NEGATIVE 08/20/21 08/21/21 08/21/21 22:02 07:24 07:24 MCV 85.8 MCH 26.6 L MCHC 31.0 RDW 13.4 Plt Count 255 MPV 8.5 L Immature Gran % (Auto) 0.3 Neut % (Auto) 57.2 Lymph % (Auto) 32.9 Edwards % (Auto) 5.3 Eos % (Auto) 3.6 Baso % (Auto) 0.7 Lymph # (Auto) 2.4 Edwards # (Auto) 0.4 Eos # (Auto) 0.3 Baso # (Auto) 0.1 Abs Immat Gran (auto) 0.02 Absolute Neuts (auto) 4.1 Absolute Nucleated RBC 0.000 Nucleated RBC % (auto) 0.0 ESR Anion Gap 12 Estim Creat Clear Calc 57.2 Estimated GFR > 60 POC Glucose 160 H Random Glucose 94 Calcium 8.6 D Blood Type Antibody Screen 08/21/21 11:33 MCV MCH MCHC RDW Plt Count MPV Immature Gran % (Auto) Neut % (Auto) Lymph % (Auto) Edwards % (Auto) Eos % (Auto) Baso % (Auto) Lymph # (Auto) Edwards # (Auto) Eos # (Auto) Baso # (Auto) Abs Immat Gran (auto) Absolute Neuts (auto) Absolute Nucleated RBC Nucleated RBC % (auto) ESR Anion Gap Estim Creat Clear Calc Estimated GFR POC Glucose 92 Random Glucose Calcium Blood Type Antibody Screen Assessment and Plan (1) Necrosis of toe: Status: Acute Assessment and Plan: 75-year-old female history PVD, diabetes, hypertension, right SFA occlusion, stroke with left hemiparesis and vascular dementia (healthcare proxy invoked) sent to the ED for worsening right foot infection necrotic foot infection/osteomyeleitis right foot secondary to diabetes and PVD continue Broad-spectrum antibiotics seen by vascular surgery recommends [id number] amputation Diabetes hypoglycemia last admission.? Hold levemir Continue sliding scale History of CVA with left hemiparesis and vascular dementia Continue aspirin, statin HTN continue metoprolol gerd continue omeprazole Attempted to call patient's son Yeison Loyola [phone], no answer. [place] contact Rosalie Loyola [phone] phone not in service dvt ppx - heparin code status- MOLST form chart indicates DNR/ DNI HCP - Reza Loyola attending - Dr. Carranza Quality Stroke Does the patient have a stroke diagnosis?: No VTE Prior VTE?: No VTE Risk Level:: Medical - moderate - high VTE Device Contraindication: N/A - Device Ordered VTE Drug Contraindication: N/A - Med Ordered
--- NOTE | 2021-08-21 13:33 | MHC.CM.PN ---
Addendum entered by Madelaine Bailey 08/22/21 14:57: CM RECEIVED A RESPONSE FROM [facility] INDICATING THEY WERE NOT AVAILABLE FOR SOC UNTIL THE UPCOMING WEEK. CM REQUESTED THEY COME AND ASSESS THE PT FOR THE APPROPRIATENESS OF HOSPICE SERVICES IF PT IS HOSPICE APPROPRIATE, PT MAY BE ABLE TO RETURN TO SNF ON TRAVEL OCCUPATIONAL THERAPIST STATUS WITH A PLAN FOR HLC TO START THERE Addendum entered by Madelaine Bailey 08/21/21 16:24: CM WAS INFORMED HCP IS CONSIDERING HOSPICE AT [place]. A REFERRAL WAS MADE TO [facility] REQUESTING A HOSPICE INFORMATIONAL BE PROVIDED. PTS SNF WAS ALSO INFORMED OF ABOVE Original Note: CM CALLED PTS HCP, SORAIDA [phone] SORAIDA CONFIRMS THE PT IS A LTC RESIDENT AT [facility] HE REPORTS AT BASELINE SHE IS BEDBOUND THE HCP IS INVOKED AND ON FILE PCP IS ARSEN QUIGLEY REPORTS CONCERN THAT THE PT HAS BEEN IN THE HOSPITAL A FEW TIMES AND EACH TIME AMPUTATION WAS RECOMMENDED HOWEVER PT REFUSED. INFO RELAYED TO PTS PROVIDER CURRENT DC PLAN IS RETURN TO [facility] VIA BLS
[2021-08-21 15:39] VITALS: BP 126/59; PULSE 76; RESP 18; TEMP 35.7; O2SAT 99
--- NOTE | 2021-08-21 15:55 | PC.NURSE ---
dressing to Right foot changed, foot with betadine to it and wrapped in kirlax gauze. pt incontinent of urine, full bedding changed, pt repositioned. her diet was changed to soft foods, pt was not tolerating the turkey lunch well, offered puddings and soft foods, pt tolerated much better. pt tolerated dressig change well. repositioned to left side.
[2021-08-21 16:48] LABS: Glucose, Whole Blood 142 mg/dL (60-115)
[2021-08-21 20:46] LABS: Glucose, Whole Blood 237 mg/dL (60-115)
--- NOTE | 2021-08-21 21:44 | PC.NURSE ---
attempted twice to medicate pt, she refused all attempts to take her evening medications. pt did accept her HS Aleksandra
[2021-08-21] MEDS: Insulin Lispro 100 UNIT/ML 3 ML VIAL SUBCUT (22:27)
[2021-08-21] MEDS: Latanoprost 0.005 % Ophth Sol 2.5 ML DROPS 1 DROP EYE-BOTH (22:28)
--- NOTE | 2021-08-21 22:43 | PC.NURSE ---
pt c/o pain to her buttocks, upon evening assessment of pt, noticed she was incontinent of urine. with refusing to use periwick. pt repositioned in bed onto her R side using pillows, heels were floated, linens changed and barrier cream applied to coccyx as breakdown noticed to coccyx area.
[2021-08-22 01:38] VITALS: BP 134/58; PULSE 75; RESP 18; TEMP 36.2; O2SAT 99
[2021-08-22] MEDS: Heparin Sodium,Porcine 5,000 UNIT/ML VIAL 5000 UNIT SUBCUT ×2 (05:38→16:47)
[2021-08-22] MEDS: Piperacillin Sodium/Tazobactam 4.5 GM in 0.9 % Sodium Chloride 100 ML IV ×4 (05:38→21:41)
[2021-08-22] MEDS: Omeprazole 20 MG CAPSULE.DR PO (05:38)
[2021-08-22 05:50] LABS: Hematocrit 25.7 % (37.0-47.0); Hemoglobin 7.8 g/dl (12.0-16.0); Mean Corpuscular HGB Conc 30.4 g/dl (31.0-35.0); Mean Corpuscular Hemoglobin 26.2 pg (27.0-33.0); Mean Corpuscular Volume 86.2 fL (80.0-98.0); Mean Platelet Volume 9.2 fL (9.4-12.3); Platelet Count 292 X10*3/uL (160-400); Red Blood Count 2.98 X10*6/uL (4.20-5.50); Red Cell Distribution Width 13.4 % (11.0-16.0); White Blood Count 7.1 X10*3/uL (4.8-10.8)
[2021-08-22 06:19] LABS: Anion Gap 12 (12-20); Blood Urea Nitrogen 23 mg/dL (9-16); Calcium 8.6 mg/dL (8.4-10.2); Carbon Dioxide 24 mmol/L (22-29); Chloride 106 mmol/L (96-108); Creatinine Clr Calc Pharmacy 57.2; Estimated Glomerular Filt Rate > 60; Glucose Random 159 mg/dL (60-115); Sodium 138 mmol/L (135-145)
[2021-08-22 07:53] LABS: Glucose, Whole Blood 150 mg/dL (60-115)
[2021-08-22 08:00] VITALS: BP 121/61; PULSE 81; RESP 15; TEMP 35.9; O2SAT 99
[2021-08-22] MEDS: Metoprolol Tartrate 50 MG TABLET PO ×2 (09:26→21:40)
[2021-08-22] MEDS: Aspirin Enteric Coated 81 MG TABLET.DR PO (09:26)
--- NOTE | 2021-08-22 09:31 | P.PNIM_ITS ---
Subjective Subjective Date of Service: 08/22/21 Review of Systems Follow up foot infection Mostly nonverbal patient, but stated that she is comfortable with no pain Physical Exam Verdana 4l Vital Signs: Verdana 4d Verdana 4d Vital Signs: Verdana 4d Verdana 4Bd Last Vital Signs Verdana 4d Pau Patterson 4d Pau Patterson 4d Temp 96.7 F L 08/22/21 08:00 Pau New 4d Pulse 81 08/22/21 08:00 Pau PattersonNew 4d Resp 15 08/22/21 08:00 BP 121/61 08/22/21 08:00 Pulse Ox 99 08/22/21 08:00 BMI result Body Mass Index 23.5 Appearing in no acute distress lung sounds are clear to auscultation heart regular rate rhythm, clear S1, S2 positive bowel sounds, abdomen is soft, nontender neuro patient is alert x3, no focal deficits Upper and lower ext contractures necrotic foot infection Skin: Other: Wounds: wounds noted (Right lower extremity necrotic foot, foul odor) Objective Data Active Medications Acetaminophen (Acetaminophen 325 Mg Tablet) 650 mg PO Q6H PRN PRN Reason: Pain, Mild (Pain Scale 1-3) Artificial Tears (Artificial Tears 15 Ml Drops) 1 drop EYE-BOTH BID [facility] Last Admin: 08/21/21 22:28 Dose: 1 drop Documented by: CAMERON Aspirin (Aspirin Enteric Coated 81 Mg Tablet.) 81 mg PO DAILY [facility] Last Admin: 08/22/21 09:26 Dose: 81 mg Documented by: ERWIN Bisacodyl (Bisacodyl 5 Mg Tablet.) 10 mg PO DAILY PRN PRN Reason: Constipation Dextrose (Dextrose 50 % 25 Gm/50 Ml Vial) 25 gm IVPUSH Q15M PRN; Protocol PRN Reason: per Hypoglycemia Standing Ord. Docusate Sodium (Docusate Sodium 100 Mg Capsule) 100 mg PO DAILY PRN PRN Reason: Constipation Dorzolamide/Timolol (Dorzolamide/Timolo 2.23%/0.68% 10 Ml Drbtl) 1 drop EYE- BOTH BID [facility] Last Admin: 08/21/21 22:28 Dose: 1 drop Documented by: CAMERON Glucose (Glucose Gel 15 Gm Gel..Gram.) 15 gm PO Q15M PRN; Protocol PRN Reason: per Hypoglycemia Standing Ord. Heparin Sodium (Porcine) (Heparin Sodium,Porcine 5,000 Unit/Ml Vial) 5,000 unit SUBCUT Q12H [facility] Last Admin: 08/22/21 05:38 Dose: 5,000 unit Documented by: JEVON Piperacillin Sod/Tazobactam (Sod 4.5 gm/ Sodium Chloride) 100 mls @ 200 mls/hr IV Q6H [facility] Last Admin: 08/22/21 09:27 Dose: 100 mls/hr Documented by: ERWIN Vancomycin HCl 1,250 mg/ (Sodium Chloride) 250 mls @ 166.667 mls/hr IV Q24H [facility] Last Infusion: 08/21/21 15:53 Dose: 0 mls/hr Documented by: CAMERON Insulin Human Lispro (Insulin Lispro 100 Unit/Ml 3 Ml Vial) 0 unit SUBCUT QIDACHS [facility]; Protocol Last Admin: 08/22/21 08:39 Dose: Not Given Documented by: ERWIN Non-Admin Reason: No Insulin Coverage Latanoprost (Latanoprost 0.005 % Ophth Susie 2.5 Ml Drops) 1 drop EYE-BOTH BEDTIME [facility] Last Admin: 08/21/21 22:28 Dose: 1 drop Documented by: CAMERON Metoprolol Tartrate (Metoprolol Tartrate 50 Mg Tablet) 50 mg PO BID [facility]; Protocol Last Admin: 08/22/21 09:26 Dose: 50 mg Documented by: ERWIN Mirtazapine (Mirtazapine 15 Mg Tablet) 15 mg PO BEDTIME [facility] Last Admin: 08/21/21 21:44 Dose: Not Given Documented by: CAMERON Non-Admin Reason: Patient Refused Omeprazole (Omeprazole 20 Mg Capsule.) 20 mg PO DAILY@0630 [facility] Last Admin: 08/22/21 05:38 Dose: 20 mg Documented by: JEVON Ondansetron HCl (Ondansetron Hcl 4 Mg/2 Ml Vial) 4 mg IVPUSH Q8H PRN PRN Reason: Nausea and Vomiting Pharmacy Consult (Consult Rx Perform Med Rec) 1 each MISCELLANE ONCE PRN PRN Reason: Consult order Pharmacy Consult (Consult Rx Vancomycin Dosing) 1 each MISCELLANE DAILY PRN PRN Reason: Consult order Pharmacy Consult (Consult Rx Vancomycin Dosing) 1 each MISCELLANE DAILY PRN PRN Reason: Consult order Senna (Sennosides 8.6 Mg Tablet) 8.6 mg PO BEDTIME [facility] Last Admin: 08/21/21 21:44 Dose: Not Given Documented by: CAMERON Non-Admin Reason: Patient Refused Sodium Chloride (0.9 % Sodium Chloride Flush 3 Ml Syringe) 3 ml IVFLUSH QSHIFT [facility] Last Admin: 08/22/21 00:07 Dose: Not Given Documented by: CECE Non-Admin Reason: Med Not Available Tamsulosin HCl (Tamsulosin Hcl 0.4 Mg Capsule) 0.4 mg PO BEDTIME [facility] Last Admin: 08/21/21 21:43 Dose: Not Given Documented by: CAMERON Non-Admin Reason: Patient Refused Labs CBC & Chem 7: 08/22/21 05:11 08/22/21 05:11 Labs: Laboratory Results - last 24 hr 08/21/21 08/21/21 08/21/21 11:33 16:44 20:35 MCV MCH MCHC RDW Plt Count MPV Absolute Nucleated RBC Nucleated RBC % (auto) Anion Gap Estim Creat Clear Calc Estimated GFR POC Glucose 92 142 H 237 H Random Glucose Calcium 08/22/21 08/22/21 08/22/21 05:11 05:11 07:38 MCV 86.2 MCH 26.2 L MCHC 30.4 L RDW 13.4 Plt Count 292 MPV 9.2 L Absolute Nucleated RBC 0.000 Nucleated RBC % (auto) 0.0 Anion Gap 12 Estim Creat Clear Calc 57.2 Estimated GFR > 60 POC Glucose 150 H Random Glucose 159 H Calcium 8.6 Microbiology Microbiology Results: Microbiology 08/20/21 11:46 Blood Culture - Preliminary Blood - Venous No growth after 24 hours. 08/20/21 11:31 Blood Culture - Preliminary Blood - Venous No growth after 24 hours. Assessment and Plan (1) Necrosis of toe: Status: Acute (2) Osteomyelitis: Status: Acute Assessment and Plan: 75-year-old female history PVD, diabetes, hypertension, right SFA occlusion, stroke with left hemiparesis and vascular dementia (healthcare proxy invoked) sent to the ED for worsening right foot infection necrotic foot infection/osteomyeleitis right foot secondary to diabetes and PVD continue Broad-spectrum antibiotics seen by vascular surgery recommends [id number] amputation, patient and her son are declining Diabetes hypoglycemia last admission.? Hold levemir Continue sliding scale History of CVA with left hemiparesis and vascular dementia Continue aspirin, statin HTN continue metoprolol gerd continue omeprazole Discussed patients condition with her son, Yeison Loyola [phone], he is ag reeable to hospice consult dvt ppx - heparin code status- MOLST form chart indicates DNR/ DNI HCP - Reza Loyola attending - Dr. Carranza Quality Stroke Does the patient have a stroke diagnosis?: No VTE Prior VTE?: No VTE Risk Level:: Medical - moderate - high VTE Device Contraindication: N/A - Device Ordered VTE Drug Contraindication: N/A - Med Ordered
[2021-08-22] MEDS: 0.9 % Sodium Chloride Flush 3 ML SYRINGE IVFLUSH ×2 (09:36→16:48)
[2021-08-22 10:33] LABS: Vancomycin Random 16.5 mcg/mL (15-20)
--- NOTE | 2021-08-22 10:58 | HE.PHANOTE ---
Vancomycin Dosing Addendum Pts trough 16.5 after 2 doses. Decreased dose to 1000 mg q24h for predicted AUC of 511. ext trought due 08/24/21 @1000.
[2021-08-22 11:42] LABS: Glucose, Whole Blood 226 mg/dL (60-115)
[2021-08-22 12:00] VITALS: BP 138/74; PULSE 82; RESP 15; TEMP 36.1; O2SAT 100
[2021-08-22] MEDS: Insulin Lispro 100 UNIT/ML 3 ML VIAL SUBCUT ×2 (12:11→21:40)
[2021-08-22] MEDS: vancomycin HCL 1,000 MG in 0.9 % Sodium Chloride 250 ML 270 MG IV (12:12)
[2021-08-22 15:46] VITALS: BP 136/67; PULSE 69; RESP 17; TEMP 36.6
[2021-08-22 16:04] LABS: Glucose, Whole Blood 115 mg/dL (60-115)
[2021-08-22 19:54] VITALS: BP 174/75; PULSE 72; RESP 18; TEMP 36.4
[2021-08-22 20:31] LABS: Glucose, Whole Blood 177 mg/dL (60-115)
[2021-08-22] MEDS: Mirtazapine 15 MG TABLET PO (21:40)
[2021-08-22] MEDS: Sennosides 8.6 MG TABLET PO (21:40)
[2021-08-22] MEDS: Tamsulosin HCL 0.4 MG CAPSULE PO (21:40)
[2021-08-22] MEDS: Artificial Tears 15 ML DROPS 1 DROP EYE-BOTH (21:48)
[2021-08-22] MEDS: Dorzolamide/Timolo 2.23%/0.68% 10 ML DRBTL 1 DROP EYE-BOTH (21:48)
[2021-08-22] MEDS: Latanoprost 0.005 % Ophth Sol 2.5 ML DROPS 1 DROP EYE-BOTH (21:48)
[2021-08-23] VITALS: BP 150/67; PULSE 80; RESP 17; TEMP 36.6; O2SAT 99
[2021-08-23] MEDS: Piperacillin Sodium/Tazobactam 4.5 GM in 0.9 % Sodium Chloride 100 ML IV (03:18)
[2021-08-23] MEDS: Heparin Sodium,Porcine 5,000 UNIT/ML VIAL 5000 UNIT SUBCUT (03:18)
[2021-08-23 03:31] VITALS: BP 152/69; PULSE 68; RESP 18; TEMP 36.1; O2SAT 98
[2021-08-23 06:38] LABS: Creatinine Clr Calc Pharmacy 59.5; Estimated Glomerular Filt Rate > 60
[2021-08-23 07:37] LABS: Glucose, Whole Blood 143 mg/dL (60-115)
[2021-08-23 07:50] VITALS: BP 192/90; PULSE 78; RESP 18; TEMP 36; O2SAT 100
[2021-08-23] MEDS: 0.9 % Sodium Chloride Flush 3 ML SYRINGE IVFLUSH (08:59)
[2021-08-23] MEDS: Dorzolamide/Timolo 2.23%/0.68% 10 ML DRBTL 1 DROP EYE-BOTH (09:00)
[2021-08-23] MEDS: Artificial Tears 15 ML DROPS 1 DROP EYE-BOTH (09:00)
--- NOTE | 2021-08-23 09:44 | HO.PM.IMPN ---
Subjective Subjective Date of Service: 08/23/21 Review of Systems Follow up foot infection Mostly nonverbal patient, but stated that she is comfortable with no pain Physical Exam Vital Signs: Vital Signs: Last Vital Signs Temp 96.8 F 08/23/21 07:50 Pulse 78 08/23/21 07:50 Resp 18 08/23/21 07:50 BP 192/90 H 08/23/21 07:50 Pulse Ox 100 08/23/21 07:50 BMI result Body Mass Index 23.5 Appearing in no acute distress lung sounds are clear to auscultation heart regular rate rhythm, clear S1, S2 positive bowel sounds, abdomen is soft, nontender neuro patient is alert x3, no focal deficits Right foot necrosis Objective Data Active Medications Acetaminophen (Acetaminophen 325 Mg Tablet) 650 mg PO Q6H PRN PRN Reason: Pain, Mild (Pain Scale 1-3) Artificial Tears (Artificial Tears 15 Ml Drops) 1 drop EYE-BOTH BID [facility] Last Admin: 08/23/21 09:00 Dose: 1 drop Documented by: CAMILLE Aspirin (Aspirin Enteric Coated 81 Mg Tablet.) 81 mg PO DAILY [facility] Last Admin: 08/23/21 09:05 Dose: Not Given Documented by: CAMILLE Non-Admin Reason: Patient Refused Bisacodyl (Bisacodyl 5 Mg Tablet.) 10 mg PO DAILY PRN PRN Reason: Constipation Dextrose (Dextrose 50 % 25 Gm/50 Ml Vial) 25 gm IVPUSH Q15M PRN; Protocol PRN Reason: per Hypoglycemia Standing Ord. Docusate Sodium (Docusate Sodium 100 Mg Capsule) 100 mg PO DAILY PRN PRN Reason: Constipation Dorzolamide/Timolol (Dorzolamide/Timolo 2.23%/0.68% 10 Ml Drbtl) 1 drop EYE-BOTH BID [facility] Last Admin: 08/23/21 09:00 Dose: 1 drop Documented by: CAMILLE Glucose (Glucose Gel 15 Gm Gel..Gram.) 15 gm PO Q15M PRN; Protocol PRN Reason: per Hypoglycemia Standing Ord. Heparin Sodium (Porcine) (Heparin Sodium,Porcine 5,000 Unit/Ml Vial) 5,000 unit SUBCUT Q12H [facility] Last Admin: 08/23/21 03:18 Dose: 5,000 unit Documented by: PILO Vancomycin HCl 1,000 mg/ (Sodium Chloride) 270 mls @ 270 mls/hr IV Q24H [facility] Last Infusion: 08/22/21 13:36 Dose: 0 mls/hr Documented by: ERWIN Insulin Human Lispro (Insulin Lispro 100 Unit/Ml 3 Ml Vial) 0 unit SUBCUT QIDACHS [facility]; Protocol Last Admin: 08/23/21 08:49 Dose: Not Given Documented by: CAMILLE Non-Admin Reason: No Insulin Coverage Latanoprost (Latanoprost 0.005 % Ophth Susie 2.5 Ml Drops) 1 drop EYE-BOTH BEDTIME [facility] Last Admin: 08/22/21 21:48 Dose: 1 drop Documented by: PILO Metoprolol Tartrate (Metoprolol Tartrate 50 Mg Tablet) 50 mg PO BID [facility]; Protocol Last Admin: 08/23/21 09:06 Dose: Not Given Documented by: CAMILLE Non-Admin Reason: Patient Refused Mirtazapine (Mirtazapine 15 Mg Tablet) 15 mg PO BEDTIME [facility] Last Admin: 08/22/21 21:40 Dose: 15 mg Documented by: PILO Omeprazole (Omeprazole 20 Mg Capsule.Dr) 20 mg PO DAILY@0630 [facility] Last Admin: 08/23/21 05:25 Dose: Not Given Documented by: PILO Non-Admin Reason: Patient Refused Ondansetron HCl (Ondansetron Hcl 4 Mg/2 Ml Vial) 4 mg IVPUSH Q8H PRN PRN Reason: Nausea and Vomiting Pharmacy Consult (Consult Rx Perform Med Rec) 1 each MISCELLANE ONCE PRN PRN Reason: Consult order Pharmacy Consult (Consult Rx Vancomycin Dosing) 1 each MISCELLANE DAILY PRN PRN Reason: Consult order Pharmacy Consult (Consult Rx Vancomycin Dosing) 1 each MISCELLANE DAILY PRN PRN Reason: Consult order Senna (Sennosides 8.6 Mg Tablet) 8.6 mg PO BEDTIME [facility] Last Admin: 08/22/21 21:40 Dose: 8.6 mg Documented by: PILO Sodium Chloride (0.9 % Sodium Chloride Flush 3 Ml Syringe) 3 ml IVFLUSH QSHIFT [facility] Last Admin: 08/23/21 08:59 Dose: 3 ml Documented by: CAMILLE Tamsulosin HCl (Tamsulosin Hcl 0.4 Mg Capsule) 0.4 mg PO BEDTIME [facility] Last Admin: 08/22/21 21:40 Dose: 0.4 mg Documented by: PILO Labs CBC & Chem 7: 08/22/21 05:11 08/23/21 05:41 Labs: Laboratory Results - last 24 hr 08/22/21 08/22/21 08/22/21 09:59 11:19 15:56 Estim Creat Clear Calc Estimated GFR POC Glucose 226 H 115 Random Vancomycin 16.5 08/22/21 08/23/21 08/23/21 19:59 05:41 07:30 Estim Creat Clear Calc 59.5 Estimated GFR > 60 POC Glucose 177 H 143 H Random Vancomycin Microbiology Microbiology Results: Microbiology 08/20/21 11:31 Blood Culture - Preliminary Blood - Venous Prelim: GPC Gram Stain only 08/20/21 11:46 Blood Culture - Preliminary Blood - Venous No growth after 48 hours. Assessment and Plan (1) Necrosis of toe: Status: Acute Assessment and Plan: 75-year-old female history PVD, diabetes, hypertension, right SFA occlusion, stroke with left hemiparesis and vascular dementia (healthcare proxy invoked) sent to the ED for worsening right foot infection necrotic foot infection/osteomyeleitis right foot secondary to diabetes and PVD continue Broad-spectrum antibiotics seen by vascular surgery recommends [id number] amputation, patient and her son are declining Diabetes hypoglycemia last admission.? Hold levemir Continue sliding scale History of CVA with left hemiparesis and vascular dementia Continue aspirin, statin HTN continue metoprolol gerd continue omeprazole Discussed patients condition with her son, Yeison Loyola [phone], he is agreeable to hospice consult dvt ppx - heparin code status- MOLST form chart indicates DNR/ DNI HCP - Reza Loyola attending - Dr. Doll Quality Stroke Does the patient have a stroke diagnosis?: No VTE Prior VTE?: No VTE Risk Level:: Medical - moderate - high VTE Device Contraindication: N/A - Device Ordered VTE Drug Contraindication: N/A - Med Ordered
--- NOTE | 2021-08-23 10:12 | MHC.CM.PN ---
CM RECEIVED CALL BACK FROM [facility] IN [place] THAT PT IS WELCOME TO RETURN AND MAY SHOW UP ANY TIME TODAY, HOSPITALIST AWARE AND PT WILL BE PROVIDED A CAB VOUCHER INCLUDING A STOP AT PHARMACY TO DOCUMENT IMAGING SPECIALIST HER MEDS.
--- NOTE | 2021-08-23 10:57 | PM.DS ---
DS: Providers Provider Date of Service: 08/23/21 Date of admission: 08/20/21 14:41 Primary care physician: Carri Fleming MD Consults: 08/20/21 14:46 Consult to Vascular Surgery Routine Consulting Provider: Shay Verduzco Reason for consultation: foot necrosis Has provider been notified: No Attending physician on discharge: Leon Doll Discharging clinician: Barb Roldan DS: Diagnosis Discharge Diagnosis (1) Necrosis of toe: Status: Acute DS: Summary Hospital Course Hospital Course: HP as per admitting provider This is a 75-year-old female who was sent to the emergency department today due to worsening right foot infection.? She was admitted in May for necrotic foot wound.? At that time she was seen by vascular surgery who recommended [id number] amputation versus hospice care.? She was discharged back to rehab with conservative management.? she was evaluated by the wound care this morning and sent to the hospital for evaluation due to worsening of the foot wound.? She was seen by Dr. Verduzco vascular surgery in the emergency department who continues to recommend right [id number] amputation versus hospice. ? ? The patient has a history of vascular dementia and her healthcare proxy has been invoked. The ED was unable to reach the patient's healthcare proxy. In the emergency department she underwent x-ray of her foot which showed multiple air foci in the soft tissues of the distal foot had 1st and 2nd toes, Increased destruction of the base of the 5th proximal phalanx and Findings in the 2nd MTP joint are consistent with osteomyelitis. She was treated with empiric antibiotics on decision was made to admit her for further management. ? Difficult to obtain history from patient due to her underlying vascular dementia . 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 The patient and her son are in agreement with this. At this point will stop antibiotic treatment Time Spent with Patient Time attestation: Total time spent providing and/or coordinating discharge services: Discharge coordination time: Greater than 30 minutes Quality: Stroke Does the patient have a stroke diagnosis?: No Physical Exam Vital Signs: Vital Signs: Last Vital Signs Temp 96.8 F 08/23/21 07:50 Pulse 78 08/23/21 07:50 Resp 18 08/23/21 07:50 BP 192/90 H 08/23/21 07:50 Pulse Ox 100 08/23/21 07:50 BMI result Body Mass Index 23.5 Appearing in no acute distress head is normocephalic atraumatic eyes pupils are PERRLA sclera is anicteric mouth throat mucous membranes are intact and moist neck is supple no lymphadenopathy, no JVD noted lung sounds are clear to auscultation heart regular rate rhythm, clear S1, S2 positive bowel sounds, abdomen is soft, nontender neuro patient is alert x3, no focal deficits Contractures of upper and lower extremities DS: Data Data Completed and Pending Labs on day of discharge: Laboratory Results - last 24 hr 08/22/21 08/22/21 08/22/21 11:19 15:56 19:59 Creatinine Estim Creat Clear Calc Estimated GFR POC Glucose 226 H 115 177 H 08/23/21 08/23/21 05:41 07:30 Creatinine 0.77 Estim Creat Clear Calc 59.5 Estimated GFR > 60 POC Glucose 143 H Preliminary micro results at discharge 08/20/21 11:31 Blood Culture - Preliminary Blood - Venous Prelim: GPC Gram Stain only 08/20/21 11:46 Blood Culture - Preliminary Blood - Venous No growth after 48 hours. Discharge Plan Discharge Anticipated Discharge Date/Time: 08/23/21 10:49 Patient Disposition: Xfer [facility] Discharge Diagnosis: Foot necrosis Referrals: Carri Fleming MD [Primary Care Provider] - 1 Week Discharge Medications: New oxycodone 5 mg tablet 5 mg PO Q8H PRN (Reason: pain) Qty: 21 RF: 0 scopolamine base 1 mg over 3 days patch 3 day 1 patch transdermal Q3D PRN (Reason: nausea and vomiting) Qty: 4 RF: 0 Continued latanoprost 0.005 % Drops 1 drp OPHTHALMIC (EYE) BEDTIME RF: 0 sennosides [senna] 8.6 mg Tablet 17.2 mg PO BEDTIME PRN (Reason: Constipation) RF: 0 sennosides [senna] 8.6 mg Tablet 8.6 mg PO BEDTIME RF: 0 acetaminophen 325 mg Tablet 650 mg PO Q6H PRN (Reason: fever/pain) RF: 0 aspirin 81 mg Tablet,Delayed Release (Dr/Ec) 81 mg PO DAILY RF: 0 magnesium hydroxide [Milk of Magnesia] 400 mg/5 mL Suspension 30 ml PO BEDTIME PRN (Reason: Constipation) RF: 0 tamsulosin 0.4 mg Capsule 0.4 mg PO BEDTIME RF: 0 bisacodyl 10 mg Suppository 10 mg MN DAILY PRN (Reason: Constipation) RF: 0 metoprolol tartrate 50 mg Tablet 50 mg PO BID RF: 0 omeprazole 20 mg Capsule,Delayed Release(Dr/Ec) 20 mg PO DAILY@0630 RF: 0 dorzolamide-timolol 22.3-6.8 mg/mL Drops 1 drp OPHTHALMIC (EYE) BID RF: 0 calcium carbonate 500 mg calcium (1,250 mg) Tablet,Chewable 1,000 mg PO QID PRN (Reason: Heartburn) RF: 0 mirtazapine 15 mg Tablet 15 mg PO BEDTIME RF: 0 ondansetron 4 mg Tablet,Disintegrating 4 mg PO Q6H PRN (Reason: Nausea And Vomiting) RF: 0 bisacodyl 5 mg Tablet 10 mg PO DAILY PRN (Reason: Constipation) RF: 0 artifi.tears(hypromellose)(PF) 0.3 % Drops 1 drp OPHTHALMIC (EYE) BID RF: 0 Levemir FlexTouch U-100 Insuln 100 unit/mL (3 mL) insulin pen 10 unit SUBCUT DAILY RF: 0 Discharge Orders: Discharge Order (Routine); Ordered 08/23/21 Ordered By: Barb Roldan Diet: advance to usual diet Activity on Discharge: As tolerated Stand Alone Forms: Patient Portal Discharge page Care Plan Goals: Comfort measures only. 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 Patient and family have declined any surgical intervention for gangrenous foot and patient is now referred to Hospice care. Plan of Treatment: Hospice referal, back to [facility] for comfort measures Assessment: See discharge summary
--- NOTE | 2021-08-23 11:17 | P.PNVS_ITS ---
Subjective Subjective Date of Service: 08/23/21 Patient reports: no new complaints and still having pain Interval history: 75-year-old female with ischemic necrotic right lower extremity will presents for follow-up. She was admitted at the end of last week. She has been admitted with IV antibiotics and local wound care. They were able to reach the son. Of note she has vascular dementia. She is lucid and is able to discuss treatment care. In addition she is nonambulatory and has been nonambulatory for some time. She is currently in a facility. Physical Exam Vital Signs: Vital Signs: Last Vital Signs Temp 96.8 F 08/23/21 07:50 Pulse 78 08/23/21 07:50 Resp 18 08/23/21 07:50 BP 192/90 H 08/23/21 07:50 Pulse Ox 100 08/23/21 07:50 BMI result Body Mass Index 23.5 Const: General: cooperative, healthy appearing and no acute distress Orientation/consciousness: oriented to person, oriented to place and oriented to time HENMT: Head: Yes normal to inspection Neck: Carotids: no bruits Chest: Chest palpation & inspection: normal inspection of the chest Resp: Effort & Inspection: normal respiratory effort and able to speak in complete sentences Auscultation: clear to auscultation bilaterally Cardio: Rate: regular rate Heart sounds: S1 normal heart sound present and S2 normal heart sound present GI: Inspection: Yes normal to inspection Skin: General skin exam: no rashes or lesions noted Wounds: wounds noted (Right foot necrotic wounds to bone, foul odor) Neuro: General: oriented to person, oriented to place, oriented to time and CN's II-XI intact bilaterally Extrem: General: Yes normal to inspection, Yes full ROM and Yes no clubbing, cyanosis or edema Psych: Appearance: grossly normal and well kempt Speech and movement: Normal speech and movement present Affect: normal affect Progress Note: A&P Assessment and plan (1) PAD (peripheral artery disease): Status: Acute Assessment and Plan: In short patient is non ambulatory with a necrotic right lower extremity. She would require an above knee amputation. That would be the only operation I would offer. The patient and the patient's son have decided to move forward with hospice. Agreeable with that decision. In terms of wound care would paint the foot with Betadine and Kerlix wrap to be changed daily. We will follow on an as-needed basis. Thank you for allowing us to assist in her care. Fall Risk Details Current Medications: Current Medications Acetaminophen (Acetaminophen 325 Mg Tablet) 650 mg PO Q6H PRN PRN Reason: Pain, Mild (Pain Scale 1-3) Artificial Tears (Artificial Tears 15 Ml Drops) 1 drop EYE-BOTH BID [facility] Last Admin: 08/23/21 09:00 Dose: 1 drop Documented by: Aspirin (Aspirin Enteric Coated 81 Mg Tablet.) 81 mg PO DAILY [facility] Last Admin: 08/23/21 09:05 Dose: Not Given Documented by: Bisacodyl (Bisacodyl 5 Mg Tablet.) 10 mg PO DAILY PRN PRN Reason: Constipation Dextrose (Dextrose 50 % 25 Gm/50 Ml Vial) 25 gm IVPUSH Q15M PRN; Protocol PRN Reason: per Hypoglycemia Standing Ord. Docusate Sodium (Docusate Sodium 100 Mg Capsule) 100 mg PO DAILY PRN PRN Reason: Constipation Dorzolamide/Timolol (Dorzolamide/Timolo 2.23%/0.68% 10 Ml Drbtl) 1 drop EYE- BOTH BID [facility] Last Admin: 08/23/21 09:00 Dose: 1 drop Documented by: Glucose (Glucose Gel 15 Gm Gel..Gram.) 15 gm PO Q15M PRN; Protocol PRN Reason: per Hypoglycemia Standing Ord. Heparin Sodium (Porcine) (Heparin Sodium,Porcine 5,000 Unit/Ml Vial) 5,000 unit SUBCUT Q12H [facility] Last Admin: 08/23/21 03:18 Dose: 5,000 unit Documented by: Vancomycin HCl 1,000 mg/ (Sodium Chloride) 270 mls @ 270 mls/hr IV Q24H [facility] Last Infusion: 08/22/21 13:36 Dose: Infused Documented by: Insulin Human Lispro (Insulin Lispro 100 Unit/Ml 3 Ml Vial) 0 unit SUBCUT QIDACHS [facility]; Protocol Last Admin: 08/23/21 08:49 Dose: Not Given Documented by: Latanoprost (Latanoprost 0.005 % Ophth Susie 2.5 Ml Drops) 1 drop EYE-BOTH BEDTIME [facility] Last Admin: 08/22/21 21:48 Dose: 1 drop Documented by: Metoprolol Tartrate (Metoprolol Tartrate 50 Mg Tablet) 50 mg PO BID [facility]; Protocol Last Admin: 08/23/21 09:06 Dose: Not Given Documented by: Mirtazapine (Mirtazapine 15 Mg Tablet) 15 mg PO BEDTIME [facility] Last Admin: 08/22/21 21:40 Dose: 15 mg Documented by: Omeprazole (Omeprazole 20 Mg Capsule.) 20 mg PO DAILY@0630 [facility] Last Admin: 08/23/21 05:25 Dose: Not Given Documented by: Ondansetron HCl (Ondansetron Hcl 4 Mg/2 Ml Vial) 4 mg IVPUSH Q8H PRN PRN Reason: Nausea and Vomiting Pharmacy Consult (Consult Rx Perform Med Rec) 1 each MISCELLANE ONCE PRN PRN Reason: Consult order Pharmacy Consult (Consult Rx Vancomycin Dosing) 1 each MISCELLANE DAILY PRN PRN Reason: Consult order Pharmacy Consult (Consult Rx Vancomycin Dosing) 1 each MISCELLANE DAILY PRN PRN Reason: Consult order Senna (Sennosides 8.6 Mg Tablet) 8.6 mg PO BEDTIME [facility] Last Admin: 08/22/21 21:40 Dose: 8.6 mg Documented by: Sodium Chloride (0.9 % Sodium Chloride Flush 3 Ml Syringe) 3 ml IVFLUSH QSHIFT [facility] Last Admin: 08/23/21 08:59 Dose: 3 ml Documented by: Tamsulosin HCl (Tamsulosin Hcl 0.4 Mg Capsule) 0.4 mg PO BEDTIME [facility] Last Admin: 08/22/21 21:40 Dose: 0.4 mg Documented by: Time Spent With Patient Time: Total time spent is greater than 50% in coordination of care (as documented) at patient's floor/unit and/or counseling patient: Time with patient: 15 - 24 minutes Procedures Date of Service Date of Service: 08/23/21 Quality Stroke Does the patient have a stroke diagnosis?: No VTE Prior VTE?: No VTE Risk Level:: Medical - moderate - high VTE Device Contraindication: N/A - Device Ordered VTE Drug Contraindication: N/A - Med Ordered
[2021-08-23 11:21] LABS: Glucose, Whole Blood 206 mg/dL (60-115)
[2021-08-23 11:23] VITALS: BP 161/64; PULSE 79; RESP 18; TEMP 36.1; O2SAT 100
[2021-08-23 11:35] LABS: COVID-19 Test Negative (Negative); IDNOW Serial# 08D9AD1C
[2021-08-23] MEDS: Insulin Lispro 100 UNIT/ML 3 ML VIAL SUBCUT (11:49)
[2021-08-23] MEDS: vancomycin HCL 1,000 MG in 0.9 % Sodium Chloride 250 ML 270 MG IV (11:49)
--- NOTE | 2021-08-23 13:55 | MHC.CM.PN ---
PT CLEARED FOR D/C BACK TO [facility], NA WILL START HOSPICE CARE ONCE PT RETURNS, ACTION FOR BLS TRANSPORT AT 3:30PM.
[2021-08-23 16:00] VITALS: BP 164/72; PULSE 95; RESP 17; TEMP 36.2; O2SAT 100
[2021-08-23 16:24] LABS: Glucose, Whole Blood 158 mg/dL (60-115)
== END 2021-08-23 17:23 | DRG 300 ==
LOC: HO.ED 10:31 → HO.EDOVER 14:54 → HO.S3 08-22 00:30
PROVIDERS: Admitting Provider Physician Assistant Medical; Emergency Provider Emergency Medicine; PCP Internal Medicine; Visit Provider Nurse Practitioner Acute Care
DX: E11.52 Type 2 diabetes mellitus with diabetic peripheral angiopathy with gangrene (principal); M86.071 Acute hematogenous osteomyelitis, right ankle and foot; I69.854 Hemiplegia and hemiparesis following other cerebrovascular disease affecting left non-dominant side; E11.69 Type 2 diabetes mellitus with other specified complication; K21.9 Gastro-esophageal reflux disease without esophagitis; E11.649 Type 2 diabetes mellitus with hypoglycemia without coma; I69.819 Unspecified symptoms and signs involving cognitive functions following other cerebrovascular disease; F01.50 Vascular dementia, unspecified severity, without behavioral disturbance, psychotic disturbance, mood disturbance, and anxiety; Z20.822 Contact with and (suspected) exposure to COVID-19; Z88.5 Allergy status to narcotic agent; Z79.899 Other long term (current) drug therapy; Z66 Do not resuscitate
CPT/HCPCS: 36415; 73630; 80048; 80076; 80202; 82565; 82947; 83605; 83690; 83735; 85025; 85027; 85652; 86140; 86850; 86900; 86901; 87040; 87147; 87205; 87635; 96365; 96375; 99285; J1335; J2270; J2405; J2543; J3370